=== PATIENT | female | born 1990 | race Caucasian/White ===

== ENCOUNTER → 2018-11-12 16:40 | Outpatient (CLI) | payer OTHER, SELFPAY ==
[2018-11-17 15:22] LABS: HPV Reflexed? NOT INDICATED
== END ==
PROVIDERS: Visit Provider Obstetrics & Gynecology
DX: Z12.4 Encounter for screening for malignant neoplasm of cervix (principal); Z97.5 Presence of (intrauterine) contraceptive device
CPT/HCPCS: 87624; 88175; G0145

== ENCOUNTER → 2019-02-21 10:04 | Outpatient (CLI) | payer OTHER, SELFPAY ==
--- NOTE | 2019-02-21 10:06 | RAD_ITS ---
STUDY: X-RAY - RIGHT KNEE REASON FOR EXAM: Female, 28 years old. Knee pain following a fall. TECHNIQUE: 4 view(s) of the knee. COMPARISON: None. FINDINGS: Normal visualized distal femur. Normal visualized proximal tibia and fibula. Normal proximal tibiofibular articulation. Normal medial femorotibial compartment. Normal lateral femorotibial compartment. Normal patellofemoral articulation. Small joint effusion. RAD/Knee 4 or More Views IMPRESSION: Small joint effusion. Electronically Signed: Wilber Alcantar, at 10:37 EST , Service support ,
== END ==
LOC: HPRAD 10:05
PROVIDERS: Referring Provider Physician Assistant; Visit Provider Physician Assistant
DX: S89.91XA Unspecified injury of right lower leg, initial encounter (principal); X58.XXXA Exposure to other specified factors, initial encounter; Y93.9 Activity, unspecified; Y92.9 Unspecified place or not applicable; Y99.9 Unspecified external cause status
CPT/HCPCS: 73564

== ENCOUNTER 2019-02-28 14:30 | Outpatient (CLI) | payer OTHER, SELFPAY ==
[2019-02-21 10:29] VITALS: BMI 30.4
[2019-02-28 15:05] VITALS: BMI 32.5
[2019-02-28] MEDS: 0.9% Saline Lock 10 ML Syringe IV (15:15)
[2019-02-28 17:25] LABS: Neisserai gonorrhoeae by PCR Negative (Negative); Probe Check PASS
[2019-02-28 17:33] LABS: Chlamydia Trachomatis by PCR POSITIVE (Negative)
--- NOTE | 2019-02-28 18:10 | OB.TRI.HP_ITS ---
- Problem List (1) Hyperemesis complicating , antepartum Status: Acute History of Present Illness Date of Service: 02/28/19 Was patient seen by the physician?: Yes Reason For Visit: FLUIDS Date of Service: 02/28/19 Final NAIF: 10/17/19 Final NAIF Source: LMP Gestational age: 7 Weeks and 0 Days History of Present Illness: Arrived in triage from MD office. Missed menses appointment today where reporting that vomiting has been persistent x 3 days. Allergies amoxicillin Allergy (Severe, Verified 02/28/19 15:12) Swelling - Pertinent Past Medical History Medical History: Past Medical History (Last Updated 02/21/19 @ 10:31 by Kelsie Ruby) Anemia Knee pain Laboratory Studies: Laboratory Tests 02/28/19 Range/Units 13:45 Chlam trachomat DNA PCR POSITIVE H (Negative) N.gonorrhoeae DNA (PCR) Negative (Negative) Review of Systems Constitutional: Reports: Anorexia, Fatigue - r/t hyperemesis. Denies: Chills, Fever, Weight Change HEENT: Denies: Head Aches, Sinus Congestion, Sinus Drainage Cardiovascular: Denies: Chest Pain, Palpitations Respiratory: Denies: Cough, Shortness of breath at rest, Sputum production Gastrointestinal: Reports: Nausea, Vomiting. Denies: Abdominal Pain Genitourinary: Denies: Dysuria Musculoskeletal: Denies: Joint Pain, Joint Tenderness Skin: Denies: Rash, Wounds Neurological: Denies: Numbness, Tingling, Focal weakness Psychiatric: Denies: Anxiety, Depression, Homicidal Ideations, Suicidal Ideations Hematologic/ Lymphatic: Denies: Easy Bruising, Easy Bleeding Physical Exam General: Alert, Oriented x3, No apparent distress HEENT: Atraumatic, Normocephalic. Negative for: Thyromegaly, Lymphadenopathy Cardiovascular: Regular rate, Regular Rhythm Lungs: Clear to auscultation Abdomen: Bowel Sounds Present, Gravid Neurological: Deep Tendon Reflexes 2+/4 and Symmetrical, Neuro grossly intact PROCUREMENT SPECIALIST: Normal external genitalia. Negative for: Vulvar lesions Impression/Plan Hyperemesis Gravidarum affecting 1st trimester of . at 7w0d. IV fluids with Phenergan given. One liter and feeling much better. Reports being able to tolerate water now. Wishes to not have second liter of fluids. Lab calls with + Chlamydia screen. Patient educated on results and Azithromycin called in for patient and partner Fausto Patel [birth year]. Phenergan already ordered from MD today in office. Will take antinausea medication one half hour prior to antibiotics and abstain from intercourse x 1 week. JAH to be done in MD office in 3-4 weeks.
== END 2019-02-28 18:20 | disposition home or self-care (01) ==
LOC: WPOUT 15:02 → LABSPEC 15:02 → WPOUT 15:02 → WP 15:03
PROVIDERS: Obstetrics & Gynecology; Referring Provider Obstetrics & Gynecology; Visit Provider Obstetrics & Gynecology
DX: O21.0 Mild hyperemesis gravidarum (principal); Z3A.01 Less than 8 weeks gestation of pregnancy
CPT/HCPCS: 87491; 87591; 99218; A4216; G0378

== ENCOUNTER → 2019-03-07 15:26 | Outpatient (CLI) | payer OTHER, SELFPAY ==
[2019-03-07 13:05] VITALS: BMI 32.5
[2019-03-07 16:36] LABS: Thyroid Stim Hormone (TSH) 0.98 uIU/mL (0.358-3.74)
[2019-03-07 16:48] LABS: Absolute Lymphocyte Count 1.87 X10^3/uL (0.83-4.51); Absolute Neutrophil Count 6.7 X10^3/uL (2.0-7.7); Basophil# 0.03 X10^3/uL; Basophil% 0.3 % (0-1); Eosinophil# 0.16 X10^3/uL; Eosinophils% 1.7 % (0-5); Hematocrit 36.8 % (37-47); Hemoglobin 12.5 g/dL (12.0-15.0); Lymphocyte # 1.87 X10^3/ul (4.0); Mean Corpuscular Hgb 29.9 pg (27.0-32.0); Mean Platelet Vol. 11.3 fl (6.2-12.0); Monocyte# 0.62 X10^3/uL; Monocyte% 6.6 % (0-10); NRBC Flagged by Analyzer 0 % (0-5); Neutrophil # 6.67 X10^3/uL (2.7-7.7); Neutrophil % 71.2 % (47-70); Platelet Count 237 K/mm3 (150-450); RBC Distribution Width CV 12.4 % (11.6-14.6); RBC Distribution Width SD 39.6 fl (35.1-43.9); Red Blood Count 4.18 M/mm3 (4.2-5.4); White Blood Count 9.4 K/mm3 (4.4-11.0)
[2019-03-07 16:51] LABS: Color, Urine Yellow (Yellow); Glucose, Dipstick Normal (Normal); Ketone-Dipstick 50 mg/dl (Negative); Leukocyte Esterase-Dipstick 100 /ul (Negative); Nitrite-Dipstick Negative (Negative); Occult Blood-Urine Negative /ul (Negative); Protein-Dipstick 15 mg/dl (Negative); Urine Bilirubin Dipstick Negative (Negative); Urine Clarity Clear (Clear); Urine Urobilinogen Normal (Normal)
[2019-03-08 09:36] LABS: HIV - WCH Non-Reactive (Nonreactive); Hepatitis B Surface Antigen Non-Reactive (Nonreactive); Hepatitis C Antibody Non-Reactive (Nonreactive); Rubella IgG 109.8 IU/mL
[2019-03-10 03:11] LABS: Prenatal RPR NONREACTIVE (NONREACTIVE)
== END ==
LOC: WOBLAB 15:26
PROVIDERS: Visit Provider Obstetrics & Gynecology
DX: Z34.81 Encounter for supervision of other normal pregnancy, first trimester (principal)
CPT/HCPCS: 36415; 81002; 84443; 85025; 86703; 86762; 86803; 87340

== ENCOUNTER → 2019-07-28 | Outpatient (CLI) | payer OTHER, SELFPAY ==
[2019-03-07 13:05] VITALS: BMI 32.5
[2019-07-28 16:09] LABS: Hemoglobin 10.9 g/dL (12.0-15.0); Mean Corpuscular Hgb 30.3 pg (27.0-32.0); Mean Corpuscular Volume 91.7 fL (81-99); Mean Platelet Vol. 12.2 fl (6.2-12.0); Platelet Count 204 K/mm3 (150-450); RBC Distribution Width CV 13.3 % (11.6-14.6); RBC Distribution Width SD 43.1 fl (35.1-43.9); White Blood Count 10.8 K/mm3 (4.4-11.0)
[2019-07-28 16:20] LABS: Glucose Challenge Gest 1H 50g 105 mg/dL (70-140)
== END | disposition home or self-care (01) ==
LOC: LABSPEC 15:52
PROVIDERS: Referring Provider Obstetrics & Gynecology; Visit Provider Obstetrics & Gynecology
DX: Z34.83 Encounter for supervision of other normal pregnancy, third trimester (principal)
CPT/HCPCS: 82950; 85027

== ENCOUNTER 2019-08-18 13:45 | Outpatient (CLI) | payer OTHER, SELFPAY ==
[2019-03-07 13:05] VITALS: BMI 32.5
[2019-08-18 14:20] VITALS: BMI 38.5
[2019-08-18] MEDS: Betamethasone/Betamethasone 30 MG/5 ML Vial 12 MG IM (14:54)
[2019-08-18] MEDS: Lactated Ringers 1,000 ML 50 ML IV (15:05)
[2019-08-18 15:08] LABS: Prothrombin Time (Protime)PT. 12.2 SECONDS (11.7-14.9)
[2019-08-18 15:09] LABS: Partial Thromboplast Time 28.7 Seconds (24.1-36.2)
[2019-08-18 15:11] LABS: Protein, Urine (Random) 112.6 mg/dL (<11.9); Protein:Creat Ratio 590 mg/g CRE (0-200)
[2019-08-18 15:15] LABS: Hematocrit 34.1 % (37-47); Hemoglobin 11.3 g/dL (12.0-15.0); Mean Corp Hgb Conc 33.1 g/dL (32-36); Mean Corpuscular Hgb 29.7 pg (27.0-32.0); Mean Corpuscular Volume 89.7 fL (81-99); Mean Platelet Vol. 11.9 fl (6.2-12.0); Platelet Count 198 K/mm3 (150-450); RBC Distribution Width SD 45.4 fl (35.1-43.9); White Blood Count 13.7 K/mm3 (4.4-11.0)
[2019-08-18] MEDS: Labetalol 100 MG/20 ML Vial 40 MG IV (15:24)
[2019-08-18 15:29] LABS: AST(SGOT) 17 U/L (15-37); Alanine Aminotransfer ALT/SGPT 21 U/L (13-56); Creatinine, Serum 0.57 mg/dL (0.55-1.02); EST Glomerular Filtration Rate 135 mL/min (>60); Est Glom Filt Rate - Afr Amer 163 mL/min (>60); Estimated Creatinine Clearance 122.64 ml/min; Uric Acid 5.5 mg/dL (2.6-6.0)
[2019-08-18] MEDS: Magnesium Sulfate 4gm/100mL 4 GM/100 ML IV.SOLN. IV (15:42)
[2019-08-18] MEDS: Magnesium Sulfate 4gm/100mL 2 GM/50 ML IV.SOLN. IV (15:43)
--- NOTE | 2019-08-18 15:53 | HP.PCM_ITS ---
History and Physical Date of Admission: 08/18/19 ACOG ANTEPARTUM RECORD - HISTORY AND PHYSICAL (08/18/2019) and TRANSPORT NOTE Name: NAV PATEL History of This : This is a 29-year-old patient 3 para 1 AB 1 who presented to the office today for routine visit and was noted to have markedly elevated blood pressures. She denies any other PIH symptoms such as headache, blurred vision, epigastric tenderness. She was sent to labor and delivery for a pre-E work-up and blood pressure monitoring and blood pressures continue to be elevated. labs were essentially normal except for urine protein which was elevated. She was started on Celestone, or hypertensive protocol, and magnesium sulfate in preparation for transport given she is only 31 weeks and 3 days gestation. OB Physician: AMANUEL 's Physician: UNDECIDED ...................................................................... : 1990 Age: 29 Address: [address] [place] [address] Phone: H) [phone] Insurance Carrier: [employer] [id number] Emergency Contact: MOHIT PATEL [phone] ...................................................................... Final NAIF: 10/17/19 By Ultrasound: PARITY: (G-Total Pregnancies P-Fullterm,Premature,Induced AB,Spont AB, Ectopics, Multiple,Living) NAIF CONFIRMATION: By LMP: 01/10/19 Final NAIF: 10/17/19 OB PROBLEM LIST: His first baby. Office Childbirth Class suggested. Z: LEO w/SEHLTON or for PNV or Delivery ALLERGIES: Amoxicillin Airway constriction MEDICATIONS: Anusol-HC 25 mg rectal suppository One per rectum bid x 2 weeks prn azithromycin 500 mg tablet take two tablets x one dose + DHA 28 mg iron-800 mcg-200 mg combo pack daily promethazine 12.5 mg tablet 1 po q 3 hours orn nausea Zofran 4 mg tablet One tab by mouth every six hours prn nausea/vomiting SOCIAL HISTORY: Smoking - Never Alcohol Use - socially not while Diet - balanced Diet, caffeine < 2 drinks per day and Used to drink 8 cups of coffee daily. Now occ only. 6 bottles of water daily. 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 Illicit Drug Use - denies use of street drugs Sexual Activity - did not discuss sexual history Place of - [place] Hours Worked - 30-35 Spouse-Sig Other Name - Mohit Patel Spouse-Sig Other Occupation - [employer] Spouse-Sig Other Phone No - [phone] Children Name(s) - Mitali(13) PRIOR DELIVERY HISTORY DEL DATE GEST LAB WT LB WT OZ TYPE ANES LABOR TX 14 Apr 13 39 1 7 6 Vag Epidural No 29 Jun 12 14 0 0 0 Sab General No ANTEPARTUM FLOW CHART VISIT GE RTC FU F F RI U U DATE WK MD WKS HT PN HR M SS BP ED WT RI GL D EF ST __ ____ ___ __ __ ___ __ __ __ ___ __ __ __ ___ __ 30 Jul JMW 1 31 + + 160/120 1+ 217 1+ - 09 Aug 15 JMW 3 28 + + 134/82 sl 210 - - 11 Jul 11 JMW 4 24 + + 138/82 sl 201 tr - Jun 09 JMW 4 20 + + 142/82 0 194 tr - May 06 JMW 3 17 + + 126/72 0 189 tr - Mar 31 JMW 4 12 + O 120/80 0 186 - - 18 Feb 25 JMW 4 on US 142/84 0 173 tr - ANTEPARTUM NOTE(S): Aug 18 2019: 1+Pitting Edema,Elevated BP,Denies H/A or Burry Vision Jul 28 2019: see note Jun 28 2020: Glucola/Instructions Given, Good FM, Sono Today May 30 2020: Sono Today,Good FM,Feeling Well May 12 2019: Declines AFP,CF,Quickening Noted Apr 06 2019: feeling well. Mar 07 2019: Nausea Continues,Sono PNV and NOB Today COMPREHENSIVE ANTEPARTUM NOTE(S): Aug 18 2019: Nav presents here today at 31 wks 3 days and reports Good FM today, Noted 1+ Pitting Edema, 1+ Protein and BP of 160/120 lg cuff sitting. Denies Headache or burry vision or other concerns at this time. BP on (L) side after 10 minutes - 138/104. JHONY Jul 28 2019: Nav is here for visit, GCT. She is doing well with no complaints reported. Reviewed FM, PTL, and recommendations for Tdap. Encouraged to follow Covid-19 precautions. GCT, CBC drawn today in office. LMT Mar 07 2019: Script for Zofran 4 mg (20) one po every 6 hrs prn n/v RFx1 sent to [facility] JHONY Mar 07 2019: Feeling generally well, however, frequent vomiting; denies cramping, VB, LOF; NOB and Lab work today; discussed diet management of nausea/vomiting, rx for zofran given; warning signs, s/s PTL; RTO 4 weeks for PNV - KVW Mar 07 2019: Sheeba is here w ANTHONY, Mohit Patel for NOB nurse visit with NAIF 10-17-19 planning a vag del at [facility], uncertain of epidural, in process of changing ped care so not sure now and plans to breastfeed. Sheeba is a G 3 P 1 with 6 year old daughter. This is Mohit's first baby. Mary had a one hour labor with minimal pushing in 2012. 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 They are pleased about the . She is allergic to Amoxicillin but has NKA to latex, food or the environment. Her diet is balanced although currently she's had NVP w 10# weight loss. She has tried promethazine and today will start Zofran. She left the NOB visit once to vomit. States she can keep down some bottled sweet tea. Usually she tries to drink 5 or 6 bottles of water. Enc to do sips of fluid and small amts of food that sounds good. She is a lifetime non smoker, denies street drug use and drinks alcohol socially but not in pg. She is active with her job. Genetics Screening form completed noting an aunt with Downs. They decline AFP and CF tests. Warning signs in pg reviewed as well as wearing her seatbelt ALWAYS and low on her abdomen, reaching the office after hours, lifting restriction of 25#. OTC meds ok to take and the importance of protein in her diet with understanding voiced. States she is not allowed to lift as she has a torn meniscus in her right knee. US done today. Routine labs drawn. They have a cat but Mohit cares for the litter. They have a copy of What to Expect. Office Childbirth Class suggested as Mohit's first baby. Enc to call w luz concer. Ravi ANGULO. Feb 28 2019: Nav is being seen for missed menses. . UPT in office is positive. LMP 9-23-19. Pt is about 7 weeks. NAIF 10-17-19. Pt has alot of morning sickness and is vomiting everyday. She has not tried anything otc. Breasts are tender as well. FOB Mohit Patel and is his first child. Pap done 10/2018 WNL. Cultures due today. Medications and allergies are up to date. information gone over. AM Feb 28 2019: ok Nov 12 2018: Nav presents here today for removal of her Mirena IUD as they are ready to attempt . 28 y.o. G 2 P 1 non-smoker with no menses with use of IUD for control. Reports she had inserted in 2014 and denies problems or concerns at this time. Medication and Allergy list up-dated. Reports last pap screening done [place] [address] Giron in [place] and always had normal results. Set-up for same today. JHONY Nov 12 2019: ok REVIEW OF SYSTEMS: GENERAL - Denies fever, or chills SKIN - Denies rash, new skin lesions, or change in moles EYES - Denies blurred vision, or change in visual acuity EARS - Denies ear pain, or difficulty hearing NOSE - Denies nasal congestion, discharge, or bleeding MOUTH - Denies sore throat, or difficulty swallowing NECK - Denies pain or swelling RESPIRATORY - Denies shortness of breath, cough, wheezing CARDIOVASCULAR - Denies palpitations, chest pain, orthopnea, PND, peripheral edema, syncope or claudication GASTROINTESTINAL - Denies nausea, vomiting, diarrhea, constipation, Denies abdominal pain, melena and or bright red blood GENITOURINARY - Denies dysuria, frequency of urination, urgency, or hesitancy MUSCULOSKELETAL - Denies joint or muscle pain, or back pain NEUROLOGICAL - Denies localized numbness, weakness, or tingling PSYCHIATRIC - Denies depression, anxiety, substance abuse or suicide attempts ENDOCRINE - Denies heat or cold intolerance, weight loss or gain, increasing thirst HEMATO-IMMUNOLOGIC - Denies easy bruising, bleeding, oral ulcerations or recurrent infections GENETICS SCREENING: Age 35+ years: No Thalassemia: No Neural Tube Defect: No Down Syndrome: Yes Aunt FARHAD-SACHS: No Sickle Cell Disease: No Hemophilia: No Musc. Dystrophy: No Cystic Fibrosis: No-declines screening Oliver Chorea: No Mental Retardation: No Fragile X: No Other genetic: No Other defects: No SABs/still births: No Drugs since LMP: Yes INFECTION HISTORY: High risk AIDS: No High risk Hepatitis: No Exposed to TB: No Exposed to Herpes: No Rash/viral illness since LMP: No History of STD: Chlamydia MENSTRUAL HISTORY: *Menses Amount/Duration: 3 daysMenses Regularity: RegularFrequency: monthly* PAST SUMMARY: PARITY: 1. Total Pregnancies............ 3 2. Full Term Pregnancies........ 1 3. Premature.................... 0 4. Abortions - Induced.......... 0 5. Abortions - Spontaneous...... 1 6. Ectopics..................... 0 7. Multiple Births.............. 0 8. Living Children.............. 1 PAST #1: Date of :.................. 07/17/11 Gestation Weeks:................ 14 Length of labor(hours):......... 0 Sex:............................ UNKNOWN Weight-lbs:............... 0 Weight-oz:................ 0 Type of Delivery:............... Sab Type of Anesthesia:............. General Place of Delivery:.............. [place] Treatment of Labor?:.... No Comment: PAST #2: Date of :.................. 08/01/12 Gestation Weeks:................ 39 Length of labor(hours):......... 1 Sex:............................ F Weight-lbs:............... 7 Weight-oz:................ 6 Type of Delivery:............... Vag Type of Anesthesia:............. Epidural Place of Delivery:.............. [place] Treatment of Labor?:.... No Comment: NO PHYSICAL EXAMINATION General Appearence: 29 yo female in no acute distress Vital Signs: AF, VSS Heart: RRR without rubs or gallops Lungs: CTA x 2 Breasts: deferred Abdomen: gravid Fetus: Size: AGA Movement: present Heart: present Labs for : NAV WEMIRIAM since 01/20/2019 ORDER DATEIN DESCRIPTION VALUE UNITS RANGE A+ COMMENT ALANINE AMINOTRANSFERAS (SGPT) 08/18/19 NOTE Original Ordering Provider: SHELTON Calixto ALT 21 U/L 13-56 AST(SGOT) 08/18/19 NOTE Original Ordering Provider: SHELTON Calixto AST 17 U/L 15-37 URIC ACID 08/18/19 NOTE Original Ordering Provider: SHELTON Calixto URIC 5.5 mg/dL 2.6-6.0 The drugs N-Acetylcysteine and Metamizole may falsely depress this assay. SERUM CREATININE AND GFR 08/18/19 NOTE Original Ordering Provider: SHELTON Calixto CREAT,SERUM 0.57 mg/dL 0.55-1.02 The validity of the calculated GFR AND GFRAA in patients over 70 years has not been determined. Clinical correlation is essential. EST GFR 135 mL/min >60 Non- GFR Calc EST GFR - AA 163 mL/min >60 GFR Calc ESTIMATED CRCL 122.64 ml/min w CBC-COMPLETE BLOOD CNT NO DIFF 08/18/19 NOTE Original Ordering Provider: SHELTON Calixto WBC 13.7 K/mm3 4.4-11.0 H RBC 3.80 M/mm3 4.2-5.4 L HGB 11.3 g/dL 12.0-15.0 L HCT 34.1 % 37-47 L MCVw 89.7 fL 81-99 MCH 29.7 pg 27.0-32.0 MCHC 33.1 g/dL 32-36 RDW CV 14.0 % 11.6-14.6 RDW SD 45.4 fl 35.1-43.9r H PLT 198 K/mm3 150-450 MPV 11.9 fl 6.2-12.0 PROTEIN+CREATININE RATIO,URINE 08/18/19 NOTEw Original Ordering Provider: SHELTON Calixto UR CREAT 191.00 mg/dL NO RANGE EST. PROTEIN,UR.RAN. 112.6 mg/dL <11.9 H PROT:CRE RATIO 590 mg/g CRE 0-200 H PARTIAL THROMBOPLAST TIME 08/18/19 NOTE Original Ordering Provider: SHELTON Calixto PTT 28.7 Seconds 24.1-36.2 PROTHROMBIN TIME W/INR 08/18/19 NOTE Original Ordering Provider: SHELTON Calixto PROTIME 12.2 SECONDS 11.7-14.9 INR 1.0 GLUCOSE CHALLENGE GEST 1H 50G 07/28/19 NOTE Original Ordering Provider: Emani Patel GLU GEST 50G 1H 105 mg/dL 70-140 Reviewed by KERRIE CBC-COMPLETE BLOOD CNT NO DIFF 07/28/19 NOTE Original Ordering Provider: Emani Patel WBC 10.8 K/mm3 4.4-11.0 RBC 3.60 M/mm3 4.2-5.4 L HGB 10.9 g/dL 12.0-15.0 L HCT 33.0 % 37-47 L MCV 91.7 fL 81-99 MCH 30.3 pg 27.0-32.0 MCHC 33.0 g/dL 32-36 RDW CV 13.3 % 11.6-14.6 RDW SD 43.1 fl 35.1-43.9 PLT 204 K/mm3 150-450w MPV 12.2 fl 6.2-12.0 H Reviewed by EMANI RPR 03/07/19 NOTE Original Ordering Provider: Emani Patel RPR NONREACTIVE NONREACTIVE Reviewed by ZBIGNIEW HEPATITIS C ANTIBODY 03/07/19 NOTE Original Ordering Provider: Emani Patel HEPATITIS C AB Non-Reactive Nonreactive Non Reactive: < 0.8 Equivocal: >/= 0.8 to < 1.0 Reactive: >/= 1.0 The CDC recommends that a reactive/equivocal HCV antibody result be followed up by the HCV Nucleic Acid Amplification test ([id number]) Reviewed by EMANI HEPATITIS B SURFACE ANTIGEN 03/07/19 NOTE Original Ordering Provider: Emani Patel HEPB SURFACE AG Non-Reactive Nonreactive Reviewed by EMANI HIV - H 03/07/19 NOTE Original Ordering Provider: Emani Patel HIV - [facility] Non-Reactive Nonreactive w Reviewed by EMANI RUBELLA IGG 03/07/19 NOTE Original Ordering Provider: Emani Patel RUBELLA IGG 109.8 IU/mL Antibody results Interpretation of Immune Status < 5 IU/ml Presumed Non-immune 5 - < 10 IU/ml Equivocal > or = 10 IU/ml Presumed Immune Reviewed by EMANI T AND S-NO CHARGE W/PNP 03/07/19 Reason for Type AND Screen/Red Cells: Surgery? N [facility]~[address] [place], [address]~ BLOOD TYPE GEL A POSITIVE N AB SCREEN GEL NEGATIVE N Reviewed by EMANI URINALYSIS, ROUTINE (DIPSTICK) 11/18/19 NOTE Original Ordering Provider: Emani Patel COLOR Yellow Yellow CLARITY Clear Clear GLUCOSE, UR Normal mg/dl Normal BILIRUBIN URINE Negative mg/dL Negative r KETONE UR 50 mg/dl Negative H SP.GR. DIPSTX 1.020 1.002-1.030 PH UR 6.0 5.0 - 8.0 PROT DIPSTX 15 mg/dl Negative H UROBILI Normal mg/dl Normal NITRITE UR Negative Negative OCCULT BLOOD-UR Negative /ul Negative LEUK ESTERASE 100 /ul Negative H Reviewed by EMANI CBC W/DIFF, AUTOMATED 03/07/19 NOTE Original Ordering Provider: Emani Patel WBC 9.4 K/mm3 4.4-11.0 RBC 4.18 M/mm3 4.2-5.4 L HGB 12.5 g/dL 12.0-15.0 HCT 36.8 % 37-47 L MCV 88.0 fL 81-99 MCH 29.9 pg 27.0-32.0 MCHC 34.0 g/dL 32-36 RDW CV 12.4 % 11.6-14.6 RDW SD 39.6 fl 35.1-43.9 PLT 237 K/mm3 150-450 MPV 11.3 fl 6.2-12.0 NEUT% 71.2 % 47-70 H LY% 20.0 % 19-41 MONO% 6.6 % 0-10 EO% 1.7 % 0-5 BASO% 0.3 % 0-1 IM GRAN % 0.200 % 0.0-0.9 IG% - Immature Granulocytes (promyelocytes, myelocytes and metamyelocytes) > 1% indicates that a LEFT SHIFT is Present. ABSOLUTE NEUT 6.7 X10 3/uL 2.0-7.7 ABSOLUTE LYMPH 1.87 X10 3/uL 0.83-4.51 NRBC, FLAGGED 0 % 0-5 Reviewed by EMANI THYROID STIM HORMONE (TSH) 03/07/19 NOTE Original Ordering Provider: Emani Jorge TSH 0.98 uIU/mL 0.358-3.74 Reviewed by EMANI Impression /Plan: 31-week 3-day intrauterine with severe - induced hypertension. I have discussed with Dr. Damico and she accepts the patient in transport to [facility]. Essential Procedure Criteria Procedure Essential: Yes Criteria Note: On 07/05/2019 the [facility] ([facility]) Public Order signed by [facility] Director Abby Zamora M.D., regarding the Management of Non- Essential Surgeries and Procedures for the purpose of preserving Personal Protective Equipment (PPE) and critical hospital capacity and resources within [place] went into effect as of 07/06/2019 at 5:00PM. According to the [facility] Public O rder: This action will remain in full force and effect until the State of Emergency declared by the Governor no longer exists or the Director of the [facility] rescinds or modifies this Order.. This [facility] order stated all non-essential or elective surgeries and procedures that utilize PPE should be delayed unless there is undue risk to the current or future health of a patient. After reviewing the aforementioned [facility] Public Order and the patients clinical case, I have determined that the scheduled procedure meets the criteria to go forward. Risk to Patient if Procedure Delayed: Risk of rapidly worsening to severe symptoms if delayed
[2019-08-18] MEDS: Magnesium Sulfate 20 GM/500 ML BAG IV (16:15)
== END 2019-08-18 16:45 | disposition short-term general hospital (02) ==
LOC: OBT 14:22 → WPOUT 14:22
PROVIDERS: Obstetrics & Gynecology; Referring Provider Obstetrics & Gynecology; Visit Provider Obstetrics & Gynecology
DX: O13.3 Gestational [pregnancy-induced] hypertension without significant proteinuria, third trimester (principal); Z3A.31 31 weeks gestation of pregnancy
CPT/HCPCS: 36415; 59025; 59050; 82565; 82570; 84156; 84450; 84460; 84550; 85027; 85610; 85730; 94760; 96372; 99218; J7120; G0378; J0702

== ENCOUNTER 2021-05-31 11:50 | Outpatient (CLI) | payer MEDICAID, SELFPAY ==
[2021-05-31 12:42] LABS: hCG Titer Quant., Serum 766 mIU/mL (1-3)
== END 2021-05-31 23:59 | disposition home or self-care (01) ==
LOC: WOBLAB 11:52
PROVIDERS: Visit Provider Obstetrics & Gynecology
DX: N91.2 Amenorrhea, unspecified (principal)
CPT/HCPCS: 36415; 84702

== ENCOUNTER 2021-06-10 10:33 | Emergency (ER) | payer MEDICAID, SELFPAY ==
[2021-06-10 10:34] VITALS: BP 134/97; PULSE 88; RESP 17; TEMP 37; O2SAT 100; BMI 32.0
--- NOTE | 2021-06-10 10:51 | US_ITS ---
HISTORY: pain. LMP: Unknown. Beta-hC on 05/31/2021. TECHNIQUE: Transvaginal pelvic ultrasound was performed. # of images incl. paperwork: 117. COMPARISON: None. FINDINGS: UTERUS: 7.8 x 4.7 x 7 cm. RIGHT OVARY: 4.4 x 2.7 x 2.1 cm with vascular flow demonstrated. No adnexal masses. LEFT OVARY: 3.4 x 2.2 x 1.9 cm with vascular flow demonstrated. 1.7 x 2.3 cm complex cyst. FREE FLUID: Minimal. INTRAUTERINE GESTATIONAL SAC: Single. Mean sac diameter 11 mm corresponding to 5 weeks 6 days. YOLK SAC: Present. POLE: CRL 3.7 mm. ESTIMATED GESTATIONAL AGE: 6 weeks 1 day. ESTIMATED DELIVERY DATE: 02/03/2022. HEART MOTION: 114 bpm. SUBCHORIONIC HEMORRHAGE: None demonstrated. US/Transvaginal w/Preg US IMPRESSION: Single living intrauterine gestation with an estimated gestational age of 6 weeks 1 day. 2.3 c m left ovarian corpus luteal cyst. at 1208 Reported and signed by: Luci Vega MD Electronically Signed: Luci Vega MD at 12:07 EST ,
--- NOTE | 2021-06-10 10:53 | EDS_ITS ---
HPI HPI - Female History of Present Illness Chief Complaint: Vag Bld, Preg Informant: patient Pain Pain: Positive for Pelvic Pain Onset: Days Context: Gradual Onset Timing: Waxes and wanes Quality: Positive for Aching and Sharp Location: RLQ Current Severity: Moderate Maximum Severity: Severe Bleeding Issue: Positive for - (Passing blood with urine first 2 days. Yesterday would have small clots when wiping. Unsure if urinary or vaginal.) Associated Symptoms P: 2 Ab: 1 Narrative Narrative: Patient presents for evaluation of vaginal bleeding and cramping. She reports a 3-day history of pelvic pain worse in the right lower quadrant. She states she initially noted some blood when she would urinate. Yesterday she would have blood with wiping and small clots. She believes she is approximately 6 weeks . She has not yet seen her ELECTRICAL PROSPECTING ENGINEER for her initial evaluation. Blood type is A-positive. [facility] Medical History Anemia Knee pain Home Medications prenat.vits,daniel,[id number] 1 tab PO DAILY 02/21/19 [History Last Taken 08/18/19 09:00 1 tab] sertraline [Zoloft] 50 mg PO DAILY 06/10/21 [History Last Taken Unknown] Allergy/AdvReac Type Severity Reaction Status Date / Time amoxicillin Allergy Severe Swelling Verified 06/10/21 10:33 Social History Smoking Status: Never smoker alcohol intake: never ROS ROS ED Constitutional Constitutional ED: Reports chills; Denies fever(s) Eyes Eyes: Denies change in vision ENT ENT ED: Denies sore throat Cardiovascular Cardiovascular: Denies chest pain Respiratory/Chest Respiratory/Chest: Denies cough or dyspnea Gastrointestinal Gastrointestinal: Reports abdominal pain; Denies diarrhea, nausea or vomiting Genitourinary Genitourinary ED: Reports hematuria; Denies dysuria Musculoskeletal Musculoskeletal: Denies back pain Integumentary Denies rash Neurologic Neurologic: Denies headache(s) Allergic/Immunologic Allergic/Immunologic ED: Denies urticaria EXAM Physical Exam Const Vital Signs: 06/10/21 10:34 Temperature 98.6 F Temperature Source Temporal Pulse Rate 88 Respiratory Rate 17 Blood Pressure 134/97 H Blood Pressure Mean 109 Pulse Ox 100 Oxygen Delivery Method Room Air Positive well nourished and well developed General Appearance ED: well developed HEENT Reports moist mucous membranes Eyes PERRL and EOMs intact bilaterally Neck supple Chest Wall inspection of chest normal and palpation of chest normal Resp normal respiratory effort and clear to auscultation bilaterally Cardio regular rate and regular rhythm GI soft to palpation Palpation: tender LLQ, RLQ and RUQ no CVA tenderness Narrative: External exam reveals no blood in the vaginal vault. Extremity normal to inspection Neuro oriented x3 Sensorium / Orientation: alert Psych mental status grossly normal Skin no rashes or lesions noted MDM MDM MDM Narrative Medical decision making narrative: Patient declined anything for pain here. Lab work, urinalysis, pelvic ultrasound obtained. Lab Data Attestation: I reviewed the patient's lab results. Labs: Laboratory Results - last 24 hr 06/10/21 06/10/21 06/10/21 11:01 11:01 11:01 WBC 9.4 RBC 4.63 Hgb 13.8 Hct 40.2 MCV 86.8 MCH 29.8 MCHC 34.3 RDW Std Deviation 40.1 RDW Coeff of Dk 12.6 Plt Count 257 MPV 10.5 Immature Gran % (Auto) 0.700 Neut % (Auto) 75.8 H Lymph % (Auto) 12.1 L [place] % (Auto) 10.9 H Eos % (Auto) 0.2 Baso % (Auto) 0.3 Absolute Neuts (auto) 7.1 Absolute Lymphs (auto) 1.13 Nucleated RBC % 0 Sodium 135 L Potassium 3.4 L Chloride 104 Carbon Dioxide 25.0 Anion Gap 6 BUN 6 L Creatinine 0.71 Estim Creat Clear Calc 93.30 Est GFR (MDRD) Af Amer 125 Est GFR (MDRD) Non-Af 103 BUN/Creatinine Ratio 8.4 L Glucose 95 Calcium 9.8 Total Bilirubin 0.70 Direct Bilirubin 0.28 AST 27 ALT 33 Alkaline Phosphatase 99 Total Protein 7.8 Albumin 3.5 Globulin 4.3 H HCG, Quant 36115 H Urine Color Urine Clarity Urine pH Ur Specific [place] Urine Protein Urine Glucose (UA) Urine Ketones Urine Occult Blood Urine Nitrite Urine Bilirubin Urine Urobilinogen Ur Leukocyte Esterase Urine RBC Urine WBC Ur Squamous Epith Cells Urine Bacteria Urine Mucus 06/10/21 11:01 WBC RBC Hgb Hct MCV MCH MCHC RDW Std Deviation RDW Coeff of Dk Plt Count MPV Immature Gran % (Auto) Neut % (Auto) Lymph % (Auto) [place] % (Auto) Eos % (Auto) Baso % (Auto) Absolute Neuts (auto) Absolute Lymphs (auto) Nucleated RBC % Sodium Potassium Chloride Carbon Dioxide Anion Gap BUN Creatinine Estim Creat Clear Calc Est GFR (MDRD) Af Amer Est GFR (MDRD) Non-Af BUN/Creatinine Ratio Glucose Calcium Total Bilirubin Direct Bilirubin AST ALT Alkaline Phosphatase Total Protein Albumin Globulin HCG, Quant Urine Color Staci Urine Clarity Sl. Cloudy Urine pH 6.0 Ur Specific [place] 1.020 Urine Protein 30 H Urine Glucose (UA) Normal Urine Ketones 5 H Urine Occult Blood 150 H Urine Nitrite Negative Urine Bilirubin 1 H Urine Urobilinogen 1 H Ur Leukocyte Esterase 25 H Urine RBC 0 SEEN Urine WBC 5-10 SEEN Ur Squamous Epith Cells 0-5 SEEN Urine Bacteria 0 SEEN Urine Mucus 0 SEEN Radiography Diagnostic Testing: Clinical Impression(s) from Imaging Studies Obstetrics Ultrasound 06/10/21 10:51 IMPRESSION: Single living intrauterine gestation with an estimated gestational age of 6 weeks 1 day. 2.3 c m left ovarian corpus luteal cyst. at 1208 Reported and signed by: Luci Vega MD Electronically Signed: Luci Vega MD at 12:07 EST Reading Location ID and State: [address] [place] [address] Tel , Service support , Treatment and Re-Evaluation Comments:: Test results discussed with patient and at bedside. Lab work unremarkable. Quant has elevated appropriately. Urinalysis does show 150 occult blood. No bacteria. Ultrasound reveals single live intrauterine gestation at 6 weeks 1 day. There is a left ovarian corpus luteal cyst. I did discuss with her that she may have a kidney stone causing her right lower quadrant pain especially noting that there is some blood in her urine. Ever ything with the looks okay at this time. Dr. Vegas, patient's OB was updated. Discharge Plan Triage Chief Complaint: Vag Bld, Preg ED Provider: Jamaica Canales Dx/Rx/DC Orders Clinical Impression: Pelvic pain, Hematuria, First trimester Instructions: First Trimester, ED Hematuria, ED Pain, Acute, Uncertain Cause Prescriptions: No Action prenat.vits,daniel,[id number] Tablet 1 tab PO DAILY RF: 0 sertraline [Zoloft] 50 mg Tablet 50 mg PO DAILY RF: 0 Primary Care Provider: Nabila Steward NP Referrals: Rosalie Vegas DO [STAFF PHYSICIAN] - Keep Fara appointment Naibla Steward NP, STOCK COUNTER-C [Primary Care Provider] - Disposition Disposition: Home, Self Care
[2021-06-10 11:15] LABS: Bacteria 0 SEEN /hpf (None Seen); Mucous, Urine 0 SEEN /hpf (<or=2+); Red Blood Cells-Urine 0 SEEN /hpf (0-5)
[2021-06-10 11:20] LABS: Color, Urine Amber (Yellow); Glucose, Dipstick Normal (Normal); Ketone-Dipstick 5 mg/dl (Negative); Leukocyte Esterase-Dipstick 25 /ul (Negative); Nitrite-Dipstick Negative (Negative); Occult Blood-Urine 150 /ul (Negative); Protein-Dipstick 30 mg/dl (Negative); Urine Clarity Sl. Cloudy (Clear); Urine Urobilinogen 1 mg/dl (Normal)
[2021-06-10 11:22] LABS: Urine Bilirubin Dipstick 1 mg/dL (Negative)
[2021-06-10 11:26] LABS: Absolute Lymphocyte Count 1.13 X10^3/uL (0.83-4.51); Absolute Neutrophil Count 7.1 X10^3/uL (2.0-7.7); Basophil# 0.03 X10^3/uL; Basophil% 0.3 % (0-1); Eosinophil# 0.02 X10^3/uL; Eosinophils% 0.2 % (0-5); Hematocrit 40.2 % (37-47); Hemoglobin 13.8 g/dL (12.0-15.0); Lymphocyte # 1.13 X10^3/ul (0.83-4.51); Lymphocyte % 12.1 % (19-41); Mean Corp Hgb Conc 34.3 g/dL (32-36); Mean Corpuscular Hgb 29.8 pg (27.0-32.0); Mean Corpuscular Volume 86.8 fL (81-99); Mean Platelet Vol. 10.5 fl (6.2-12.0); Monocyte# 1.02 X10^3/uL; Monocyte% 10.9 % (0-10); NRBC Flagged by Analyzer 0 % (0-5); Neutrophil # 7.09 X10^3/uL (2.7-7.7); Neutrophil % 75.8 % (47-70); Platelet Count 257 K/mm3 (150-450); RBC Distribution Width CV 12.6 % (11.6-14.6); RBC Distribution Width SD 40.1 fl (35.1-43.9); Red Blood Count 4.63 M/mm3 (4.2-5.4); White Blood Count 9.4 K/mm3 (4.4-11.0)
[2021-06-10 11:27] LABS: Squamous Epithelial Cells - UA 0-5 SEEN /hpf (5-10); White Blood Cells 5-10 SEEN /hpf (0-5)
[2021-06-10 11:41] LABS: AST(SGOT) 27 U/L (15-37); Alanine Aminotransfer ALT/SGPT 33 U/L (13-56); Albumin, Serum 3.5 g/dL (3.2-5.0); Alkaline Phosphatase 99 U/L (45-117); Anion Gap 6 (5-15); BUN 6 mg/dL (7-18); BUN/Creat Ratio 8.4 RATIO (10-20); Bilirubin, Direct 0.28 mg/dL (0.00-0.30); Calcium,Total 9.8 mg/dL (8.5-10.1); Chloride 104 mmol/L (98-107); Creatinine, Serum 0.71 mg/dL (0.55-1.02); EST Glomerular Filtration Rate 103 mL/min (>60); Est Glom Filt Rate - Afr Amer 125 mL/min (>60); Globulin 4.3 g/dL (2.2-4.2); Glucose 95 mg/dL (74-106); Potassium 3.4 mmol/L (3.5-5.1); Protein, Total 7.8 g/dL (6.4-8.2); Sodium Level 135 mmol/L (136-145)
[2021-06-10 12:21] LABS: hCG Titer Quant., Serum 13185 mIU/mL (1-3)
== END 2021-06-10 12:51 | disposition home or self-care (01) ==
PROVIDERS: Emergency Provider Emergency Medicine; PCP Nurse Practitioner Primary Care; Visit Provider Emergency Medicine
DX: O26.891 Other specified pregnancy related conditions, first trimester (principal); R31.9 Hematuria, unspecified; O34.91 Maternal care for abnormality of pelvic organ, unspecified, first trimester; O34.81 Maternal care for other abnormalities of pelvic organs, first trimester; N83.12 Corpus luteum cyst of left ovary; R10.2 Pelvic and perineal pain; Z3A.01 Less than 8 weeks gestation of pregnancy
CPT/HCPCS: 76817; 80048; 80076; 81001; 84702; 85025; 99283; A4216

== ENCOUNTER 2021-06-16 16:31 | Emergency (ER) | payer MEDICAID, SELFPAY ==
[2021-06-16 16:32] VITALS: BP 125/87; PULSE 77; RESP 15; TEMP 36.4; O2SAT 100; BMI 32.8
--- NOTE | 2021-06-16 16:49 | US_ITS ---
INDICATION: bleeding WITH -- HCG 756 ON 05/31/21, HCG- [address] TODAY -- PREVIOUS US 06/10/21 EXAMINATION: US OB Transvaginal TECHNIQUE: Transabdominal pelvic ultrasound was performed. Grayscale, spectral waveform, and color flow Doppler evaluation of the adnexa. COMPARISON: 06/10/2021. FINDINGS: UTERUS: Measures 9.1 x 7.2 x 5.2 cm. RIGHT OVARY: Measures 4.1 x 2 x 1.7 cm. Normal. LEFT OVARY: Measures 3.6 x 2.1 x 1.8 cm. Normal. FREE FLUID: None. INTRAUTERINE GESTATIONAL SAC(s) (size/shape): Single. Slightly irregular shape. Mean sac diameter 1.4 cm. YOLK SAC: Identified POLE: Identified CRL 0.3 cm. ESTIMATED GESTATION AGE: 6 weeks 1 day. HEART MOTION: not detected PLACENTA: Not visualized due to age. SUBCHORIONIC HEMORRHAGE: None. AMNIOTIC FLUID: Qualitatively normal. US/Transvaginal w/Preg US IMPRESSION: Findings compatible with failed . Electronically Signed: Valeriy Horta MD at 20:08 EST ,
[2021-06-16 17:17] LABS: Absolute Lymphocyte Count 2.21 X10^3/uL (0.83-4.51); Absolute Neutrophil Count 3.5 X10^3/uL (2.0-7.7); Basophil# 0.02 X10^3/uL; Basophil% 0.3 % (0-1); Differential Indicated SCAN CRITERIA MET; Hematocrit 35.7 % (37-47); Lymphocyte # 2.21 X10^3/ul (0.83-4.51); Lymphocyte % 32.9 % (19-41); Mean Corp Hgb Conc 33.6 g/dL (32-36); Mean Corpuscular Hgb 29.7 pg (27.0-32.0); Mean Corpuscular Volume 88.4 fL (81-99); Mean Platelet Vol. 9.6 fl (6.2-12.0); Monocyte# 0.67 X10^3/uL; NRBC Flagged by Analyzer 0 % (0-5); Neutrophil # 3.54 X10^3/uL (2.7-7.7); Neutrophil % 52.8 % (47-70); POSITIVE MORPHOLOGY YES; Platelet Count 371 K/mm3 (150-450); RBC Distribution Width SD 42.1 fl (35.1-43.9); Red Blood Count 4.04 M/mm3 (4.2-5.4); White Blood Count 6.7 K/mm3 (4.4-11.0)
--- NOTE | 2021-06-16 17:26 | EDS_ITS ---
HPI HPI - Female History of Present Illness Chief Complaint: Vag Bld, Preg Narrative Narrative: Patient is a G4, P2 female at approximately 7 weeks gestation who presents with vaginal bleeding. She states she was seen in the emergency department on Thursday, approximately 7 days ago, where an ultrasound was performed because she was having pelvic cramping. That resolved. She denies any vaginal cramping or pelvic pain. No fevers or chills. No chest pain or lightheadedness. She states that she started bleeding more heavily this morning to the point where she had to wear a pad. She has changed the pad every few hours. It is associate juvenile court judge than her normal menstrual flow. She called her seconds handler and was told to come to the emergency department for another ultrasound. She is unsure of her blood type. [facility] Medical History Anemia Knee pain Home Medications prenat.vits,daniel,[id number] 1 tab PO DAILY 02/21/19 [History Last Taken 08/18/19 09:00 1 tab] sertraline [Zoloft] 50 mg PO DAILY 06/10/21 [History Last Taken Unknown] Allergy/AdvReac Type Severity Reaction Status Date / Time amoxicillin Allergy Severe Swelling Verified 06/16/21 16:32 Social History Smoking Status: Never smoker alcohol intake: never ROS ROS ED ROS Narrative Constitutional: No fever, no chills. HEENT: No sore throat. No neck pain. No loss of vision. No rhinorrhea. Cardiovascular: No chest pain. No palpitations. No pedal edema. Respiratory: No cough, no shortness of breath. Abdominal: No abdominal pain. No nausea. No vomiting. Genitourinary: No dysuria. No hematuria. Positive vaginal bleeding, 1 pad every few hours. No pelvic cramping or pelvic pain. Musculoskeletal: No myalgias. No arthralgias. Neurologic: No headaches. No dizziness. No lightheadedness. Skin: No rash. No change in color. Psychiatric: No depression. No anxiety. EXAM Physical Exam Narrative Exam Narrative: Afebrile. Vital signs noted. HEENT: Normocephalic. Atraumatic. PERRL, EOMI. Neck soft and supple. No point tenderness or step off. Cardiovascular: Regular rate and rhythm. No murmurs, rubs, or gallops appreciated. Respiratory: No tachypnea. Lungs clear to auscultation bilaterally. Gastrointestinal: Abdomen soft, nontender, with normoactive bowel sounds. No rebound or guarding. Neurological: Awake. Alert. Nonfocal, nonlateralizing. Skin: No rash. Normal color. No pallor. Musculoskeletal: No pedal edema. Full range of motion extremities. Const Vital Signs: 06/16/21 16:32 Temperature 97.6 F L Temperature Source Temporal Pulse Rate 77 Respiratory Rate 15 Blood Pressure 125/87 H Blood Pressure Mean 99 Pulse Ox 100 Oxygen Delivery Method Room Air MDM MDM MDM Narrative Medical decision making narrative: Chaperoned pelvic exam will be performed. CBC was obtained and she has a normal hemoglobin of 12.0. RN ordered quantitative beta hCG which is pending. I reviewed her prior records and she has A positive as her blood type. Pelvic ultrasound has been ordered. Her blending supervisor pelvic examination did not show any pooling of blood in the vaginal vault. Os was closed on examination. Her hemoglobin is normal at 12.0. However, previously on Thursday with her prior visit her beta quantitative measurement was approximately 13,180. Today, it is only 13,002. Her obstetric ultrasound shows findings compatible with failed as there is no heart rate noted/no activity. Her gestational sac is irregularly shaped, and sized at 6 weeks 1 day. I then discussed patient with Sandy, the seconds handler. It was felt that the patient can be discharged home and they will contact her tomorrow to be seen in the office. She is to return to the emergency department with bleeding of a pad front to back within 1 hour. Disposition is discharged home in stable condition. Lab Data Attestation: I reviewed the patient's lab results. Labs: Laboratory Results - last 24 hr 06/16/21 06/16/21 17:02 17:02 WBC 6.7 RBC 4.04 L Hgb 12.0 Hct 35.7 L MCV 88.4 MCH 29.7 MCHC 33.6 RDW Std Deviation 42.1 RDW Coeff of Dk 13.0 Plt Count 371 MPV 9.6 Immature Gran % (Auto) 1.000 H Neut % (Auto) 52.8 Lymph % (Auto) 32.9 [place] % (Auto) 10.0 Eos % (Auto) 3.0 Baso % (Auto) 0.3 Absolute Neuts (auto) 3.5 Absolute Lymphs (auto) 2.21 Nucleated RBC % 0 Differential Comment SCANNED HCG, Quant 57340 H Radiography Diagnostic Testing: Clinical Impression(s) from Imaging Studies Obstetrics Ultrasound 06/16/21 16:49 IMPRESSION: Findings compatible with failed . Electronically Signed: Valeriy Horta MD at 20:08 EST , Discharge Plan Triage Chief Complaint: Vag Bld, Preg ED Provider: Delvis Segura Dx/Rx/DC Orders Clinical Impression: Incomplete miscarriage Instructions: ED MISCARRIAGE Incomplete Prescriptions: No Action prenat.vits,daniel,[id number] Tablet 1 tab PO DAILY RF: 0 sertraline [Zoloft] 50 mg Tablet 50 mg PO DAILY RF: 0 Primary Care Provider: Nabila Steward NP Referrals: Rosalie Vegas DO [STAFF PHYSICIAN] - 1 Day Nabila Steward NP, BEAM DYER OPERATOR-C [Primary Care Provider] - Activity Restrictions/Additional Instructions: Your ASSESSMENT DIRECTOR will contact you tomorrow as to when to be seen in the office. Return to the emergency department with vaginal bleeding as heavy as 1 pad front to back in 1 hour. Disposition Disposition: Home, Self Care
[2021-06-16 17:47] LABS: Differential Comment SCANNED
[2021-06-16 17:55] LABS: hCG Titer Quant., Serum 13002 mIU/mL (1-3)
[2021-06-16 21:21] VITALS: BP 126/73; PULSE 93; RESP 15; O2SAT 99
== END 2021-06-16 21:22 | disposition home or self-care (01) ==
PROVIDERS: Emergency Medicine; Emergency Provider Emergency Medicine; PCP Nurse Practitioner Primary Care; Visit Provider Emergency Medicine
DX: O03.4 Incomplete spontaneous abortion without complication (principal); Z3A.01 Less than 8 weeks gestation of pregnancy
CPT/HCPCS: 76817; 84702; 85025; 99283; A4216

== ENCOUNTER 2024-09-25 19:08 | Emergency (ER) | payer SELFPAY ==
[2024-09-25 19:09] VITALS: BP 124/112; PULSE 68; RESP 20; TEMP 36.1; O2SAT 100; BMI 32.5
--- NOTE | 2024-09-25 19:34 | CT_ITS ---
PROCEDURE: ABDOMEN/PELVIS WITHOUT CONT 09/25/2024 REASON FOR EXAM: R FLANK PAIN, N/V TECHNIQUE: Abdomen and pelvis CT without intravenous contrast. Noncontrast technique limits evaluation of the abdominal and pelvic viscera. Coronal and Sagittal reconstruction series were provided. One or more dose reduction techniques were used (e.g., Automated exposure control, adjustment of the mA and/or kV according to patient size, use of iterative reconstruction technique). PATIENT PREPARATION: Per protocol ORAL CONTRAST TYPE: None. COMPARISON: None. FINDINGS: Lung bases: Tiny right middle lobe pulmonary nodule (series 2, image 5), likely noncalcified granuloma or scarring. Otherwise unremarkable. Liver: Mild hepatomegaly. No biliary ductal dilation. Gallbladder: No radiopaque stones within the gallbladder. Spleen: Normal in size. Pancreas: The unopacified pancreas is unremarkable. Adrenals: Tiny left adrenal nodule, likely an adenoma. No right adrenal mass. Kidneys: Nonobstructing right lower pole nephrolithiasis. Mild right hydroureteronephrosis. No hydronephrosis or nephrolithiasis within the left kidney or renal collecting system. Bladder: Decompressed and poorly evaluated. Tiny calcification in the expected region of the right ureterovesical junction (series 2, image 145), measuring 0.3 cm. Reproductive Organs: An IUD is present. Adnexal regions are grossly unremarkable. Bowel: The bowel loops are nondilated. No ascites or pneumoperitoneum. Normal appendix. Lymph nodes: Visualization is limited without the use of IV contrast. No suspicious lymphadenopathy. Vasculature: The abdominal aorta and IVC contours are normal. Noncontrast technique limits evaluation. Bones: Unremarkable. CT/Abdomen/Pelvis without Cont IMPRESSION: 1. Mild right hydroureteronephrosis with probable stone at the right ureteroves ical junction. 2. Mild hepatomegaly. Reading Location: [id number]
--- NOTE | 2024-09-25 19:36 | ED.VIS.GI ---
HPI HPI - GI History of Present Illness Chief Complaint: Flank Pain Informant: patient Narrative Narrative: 34-year-old healthy female had sudden onset of severe right flank pain started yesterday. She gets occasional twinges of sharp pains in her right low back. Associated with nausea and vomiting. She states she was in the shower last night, felt like she had pressure in her pelvis and needed to push so she did an had the sensation of what felt like some type of hood of fluid, and then the pain suddenly resolved for several hours, and restarted in the middle of the night and has been severely painful ever since For the past 12-18 hours. States she has the sensation that she needs to push either urine or bowel movement, and then when she sits down to push she does not have either. When she was in the shower she does not know if she had any vaginal discharge because she was in the shower at the time, but states she did not see any blood or discolored discharge. At times when she sits to urinate she only has a couple drops come out. She has never had this pain before. No history of any surgeries in her abdomen. She has an IUD and so does not have regular menstrual cycles or any now. She denies any recent vaginal discharge or risk for STI. [facility] Medical History Knee pain Anemia Home Medications ?Medication ?Instructions ?Recorded ?Last Taken ?Type prenat.vits,daniel,[id number] 1 tab PO DAILY 02/21/19 08/18/19 09:00 History 1 tab sertraline 50 mg tablet (Zoloft) 50 mg PO DAILY 06/10/21 Unknown History ciprofloxacin HCl 500 mg tablet 500 mg PO BID #14 TABLETS 09/25/24 Unknown Rx ondansetron 8 mg disintegrating 8 mg PO Q8H PRN nausea and 09/25/24 Unknown Rx tablet vomiting #12 tabs oxycodone-acetaminophen 5 mg-325 1 tab PO Q6H PRN PRN Pain 3 days 09/25/24 Unknown Rx mg tablet #12 TABLETS Allergy/AdvReac Type Severity Reaction Status Date / Time amoxicillin Allergy Severe Swelling Verified 09/25/24 19:13 Social History Smoking Status: Never smoker alcohol intake: never ROS ROS ED Constitutional Constitutional ED: Denies chills or fever(s) Eyes Eyes: Denies change in vision or diplopia ENT ENT ED: Denies rhinorrhea or sore throat Cardiovascular Cardiovascular: Denies chest pain or palpitations Respiratory/Chest Respiratory/Chest: Denies cough or dyspnea Gastrointestinal Gastrointestinal: Reports abdominal pain, nausea and vomiting; Denies diarrhea Genitourinary Genitourinary ED: Reports as per HPI, difficulty urinating and flank pain; Denies dysuria or hematuria Musculoskeletal Musculoskeletal: Denies back pain or neck pain Integumentary Denies abscess or rash Neurologic Neurologic: Denies headache(s), paresthesias or weakness Psychiatric Psychiatric: Denies suicidal thoughts EXAM Physical Exam Const Vital Signs: 09/25/24 19:09 09/25/24 19:16 09/25/24 21:09 Temperature 97.0 F L Temperature Source Temporal Pulse Rate 68 52 L Respiratory Rate 20 H 18 Respiratory Effort Labored Respiratory Pattern Tachypnea Blood Pressure 124/112 H 131/73 H Blood Pressure Mean 116 92 Pulse Ox 100 99 Oxygen Delivery Method Room Air Room Air Positive well nourished and well developed Constitutional Narrative: Mild painful distress, keenly alert, cooperative pleasant General Appearance ED: well developed HEENT Reports moist mucous membranes normocephalic and atraumatic Eyes PERRL and EOMs intact bilaterally Neck full ROM and supple Resp normal respiratory effort and clear to auscultation bilaterally Cardio regular rate, regular rhythm and no murmurs GI non-distended GI Narrative: Tender in the right upper quadrant without guarding or rebound. No other areas of tenderness. Patient in severe pain during the exam. Auscultation: normoactive bowel sounds Palpation: soft Back/Spine Back/Spine Narrative: Normal inspection of low back no rash General Back: CVA tenderness right and other FROM Extremity normal to inspection General Extremety ED: Negative for edema, pulses abnormal or tenderness General Extremity: Negative for edema or pulses abnormal Neuro oriented x3, CN's II-XII intact bilaterally and no sensory deficits noted Sensorium / Orientation: awake and alert Motor Exam: strength 5/5 throughout Psych Mood & Affect: anxious Skin no rashes or lesions noted and no wounds MDM MDM MDM Narrative Medical decision making narrative: My suspicion is that this patient has a kidney stone, so after treating her symptoms, CT will be obtained and we will also obtain a to rule out ectopic given the location of her symptoms. I reviewed the CT images and the report which I agree with, it is consistent with hydroureter and hydronephrosis on the right, along with a tiny UVJ obstructing stone and another nonobstructing right renal stone. Discussed all this with them. She is feeling much better after treatment but still having some discomfort. She has a significant leukocytosis of almost 18, there is a leftward shift but no bands. Her urine shows very little signs of infection, but given the leukocytosis and going to treat her with antibiotics and send for culture. She is doing much better and is okay going home with expectant management. She is given urine strainers to go home with, prescriptions for medications as well as tamsulosin, and urologic follow-up if needed. We discussed reasons to return she is comfortable with that plan. Lab Data Attestation: I reviewed the patient's lab results. Labs: Laboratory Results - last 24 hr 09/25/24 19:15 WBC 17.8 H RBC 4.79 Hgb 14.4 Hct 41.6 MCV 86.8 MCH 30.1 MCHC 34.6 RDW Std Deviation 39.4 RDW Coeff of Dk 12.3 Plt Count 325 MPV 10.9 Immature Gran % (Auto) 0.400 Neut % (Auto) 79.0 H Lymph % (Auto) 14.3 L [place] % (Auto) 6.0 Eos % (Auto) 0.1 Baso % (Auto) 0.2 Absolute Neuts (auto) 14.1 H Absolute Lymphs (auto) 2.55 Nucleated RBC % 0 Sodium 141 Potassium 3.7 Chloride 105 Carbon Dioxide 20.6 L Anion Gap 15 BUN 10 Creatinine 1.24 H Estim Creat Clear Calc 64.15 Est GFR (MDRD) Non-Af 59 L BUN/Creatinine Ratio 8.3 L Glucose 112 H Calcium 11.6 H Serum , Qual NEGATIVE Urine Color Yellow Urine Clarity Turbid Urine pH 8.0 Ur Specific [place] 1.015 Urine Protein 30 H Urine Glucose (UA) Normal Urine Ketones 150 A* Urine Occult Blood Negative Urine Nitrite Negative Urine Bilirubin Negative Urine Urobilinogen Normal Ur Leukocyte Esterase 25 H Urine RBC 0 SEEN Urine WBC 5-10 SEEN Ur Squamous Epith Cells 0-5 SEEN Amorphous Sediment 3+ Urine Bacteria 1+ Urine Mucus 0 SEEN Radiography Diagnostic Testing: Clinical Impression(s) from Imaging Studies Abdomen/Pelvis CT 09/25/24 19:34 IMPRESSION: 1. Mild right hydroureteronephrosis with probable stone at the right ureterovesical junction. 2. Mild hepatomegaly. Reading Location: [facility] Discharge Plan Triage Chief Complaint: Flank Pain ED Provider: Mayo Wei Dx/Rx/DC Orders Clinical Impression: Renal colic on right side, Ureterolithiasis, Leukocytosis, Right nephrolithiasis Instructions: ED Urine Strainer, ED Kidney Stone with Pain Prescriptions: New ondansetron 8 mg tablet,disintegrating 8 mg PO Q8H PRN (Reason: nausea and vomiting) Qty: 12 0RF oxycodone-acetaminophen 5-325 mg tablet 1 tab PO Q6H PRN PRN (Reason: Pain) 3 Days Qty: 12 0RF ciprofloxacin HCl 500 mg tablet 500 mg PO BID Qty: 14 0RF No Action prenat.vits,daniel,[id number] Tablet 1 tab PO DAILY sertraline [Zoloft] 50 mg Tablet 50 mg PO DAILY Primary Care Provider: Nabila Steward NP Referrals: Buster Evangelista MD [Med Staff - Active Staff] - 1 Week if not improving Print Language: Bulgarian Disposition Disposition: Home, Self Care
--- OUTSIDE RECORDS SUMMARY | 2024-09-25 19:38 | XMS RPT_ITS | CCD ---
Author Organization [facility] Care Team Providers Care Design Coordinator Name Role Phone Oberhauser, Lida L Unavailable Unavailable Oberhauser, Lida L Unavailable Unavailable Oberhauser, Lida L Unavailable Unavailable Oberhauser, Lida L Unavailable Unavailable Oberhauser, Lida L Unavailable Unavailable Oberhauser, Lida L Unavailable Unavailable Oberhauser, Lida L Unavailable Unavailable Oberhauser, Lida L Unavailable Unavailable Oberhauser, Lida L Unavailable Unavailable Oberhauser, Lida L Unavailable Unavailable Oberhauser, Lida L Unavailable Unavailable Oberhauser, Lida L Unavailable Unavailable Oberhauser, Lida L Unavailable Unavailable Oberhauser, Lida L Unavailable Unavailable Oberhauser, Lida L Unavailable Unavailable Sanchez, Audie Unavailable Unavailable Sanchez, Audie Unavailable Unavailable Unavailable Primary Care Provider Unavailabl e Unavailable Primary Care Provider Unavailabl e PHYSICIAN, NONE Primary Care Unavailable ULI CATES MD Attending Unavailable PHYSICIAN, NONE Primary Care Physician Unavailab le Allergies Allergy Classification Reported Allergen(s) Allergy Type Date of Onset Reaction(s) Facility (4 sources) amoxicillin; Translations: [amoxicillin] Drug Allergy 7 Hives, Intolerance [facility] Repository Medications Current Medications Medication Drug Class(es) Dates Sig (Normalized) Sig (Original) acetaminophen 325 mg oral tablet (1 source) Start: 08-21-2019 take 650 mg by mouth every six hours, then take 4000 mg by mouth every twenty-four hours 650 mg, Oral, EVERY 6 HOURS, First dose on 08/21/19 at 1045 Maximum dose of acetaminophen is 4000 mg from all sources in 24 hours. [id number] 200 actuat albuterol 0.09 mg/actuat metered dose inhaler (1 source) beta2-Adrenergic Agonist Start: 10-06-2024 take 1 puff(s) by inhalation every six hours as needed for wheezing ProAir HFA MDI (90 mcg/inh) inhalation aerosol 1 puff(s), Inhalation, q6h, PRN as needed for wheezing, # 8.5 gram(s), 0 Refill(s) Start Date: 01/24/24 Status: Ordered 120 actuat albuterol 0.1 mg/actuat / ipratropium bromide 0.02 mg/actuat inhalation spray (1 source) Anticholinergic, beta2-Adrenergic Agonist Start: 01-24-2024 take 1 dose by inhalation four times daily Combivent Respimat CFC free 20 mcg-100 mcg/inh inhalation aerosol Dose = 1 puff(s), Inhalation, QID, # 4 gram(s), 0 Refill(s) Start Date: 01/24/24 Status: Ordered benzocaine 200 mg/ml / menthol 5 mg/ml topical spray (1 source) Standardized Chemical Allergen Start: 08-21-2019 Topical, PRN, Pain, Starting 08/21/19 at 1027 Apply to perineal area. Patient is capable and may self administer at bedside. docusate sodium 100 mg oral capsule (2 sources) Start: 08-18-2019 End: 08-20-2019 take 100 mg by mouth twice daily as needed for constipation 100 mg, Oral, 2 TIMES DAILY PRN, Constipation, Starting 08/21/19 at 1027 Do not crush or break. ibuprofen 600 mg oral tablet (3 sources) Nonsteroidal Anti-inflammatory Drug Start: 08-24-2019 take 1 tablet by mouth every six hours as needed for pain ibuprofen (ADVIL;MOTRIN) 600 MG tablet Take 1 tablet by mouth every 6 hours as needed for Pain 30 tablet 1 08/24/2019 Active Start: 08-20-2019 take 600 mg by mouth every six hours 600 mg, Oral, EVERY 6 HOURS, First dose on 08/21/19 at 1045 Do not crush or chew. labetalol hydrochloride 200 mg oral tablet (9 sources) beta-Adrenergic George Start: 08-24-2019 take 4 tablets by mouth every eight hours labetalol (NORMODYNE) 200 MG tablet Take 4 tablets by mouth every 8 hours 60 tablet 3 08/24/2019 Active Start: 08-23-2019 labetalol (NOR MODYNE) tablet 800 mg Start: 08-22-2019 End: 08-23-2019 labetalol (NORMODYNE) tablet 400 mg Start: 08-20-2019 End: 08-22-2019 labetalol (NORMODYNE) tablet 200 mg Start: 08-20-2019 labetalol (NOR MODYNE;TRANDATE) injection 40 mg Start: 08-20-2019 labetalol (NOR MODYNE;TRANDATE) injection 20 mg Start: 08-20-2019 labetalol (NOR MODYNE;TRANDATE) 5 MG/ML injection lansinoh lanolin ointment (1 source) Start: 08-21-2019 Topical, PRN, Dry Skin, nipple discomfort, Starting 08/21/19 at 1027, levonorgestrel 0.328636 mg/hr intrauterine system (1 source) Progestin, Progestin-containing Intrauterine Device Start: 06-26-2021 End: 06-24-2028 levonorgestrel (MIRENA) 20 mcg/24 hours (7 yrs) 52 mg IUD Indications: Encounter for IUD insertion 1 Each by INTRAUTERINE route as directed. 1 Each 0 06/26/2021 06/24/2028 Active Comment on above: 1 Each by INTRAUTERI NE route as directed. NIFEdipine 90 mg osmotic 24 hr extended release oral tablet (6 sources) Dihydropyridine Calcium Channel George Start: 08-25-2019 take 1 tablet by mouth once daily NIFEdipine (PROCARDIA XL) 90 MG extended release tablet Take 1 tablet by mouth daily 30 tablet 3 08/25/2019 Active Start: 08-24-2019 NIFEdipine (WV OCARDIA XL) extended release tablet 90 mg Start: 08-23-2019 NIFEdipine (WV OCARDIA XL) extended release tablet 30 mg Start: 08-21-2019 End: 08-23-2019 NIFEdipine (PROCARDIA XL) ex tended release tablet 60 mg Start: 08-18-2019 End: 08-20-2019 NIFEdipine (PROCARDIA XL) ex tended release tablet 30 mg 2 ml ondansetron 2 mg/ml injection (1 source) Serotonin-3 Receptor Antagonist Start: 08-21-2019 4 mg, Intravenous, EVERY 6 HOURS PRN, Nausea, Starting 08/21/19 at 1027, predniSONE 10 mg oral tablet (1 source) Start: 01-24-2024 predniSONE 10 mg oral tablet 3, PO, BID, 6 po 1st dose then 3 po q12, # 33 tab(s), 0 Refill(s) Start Date: 01/24/24 Status: Ordered simethicone 80 mg chewable tablet (1 source) Start: 08-21-2019 take 80 mg by mouth every six hours as needed 80 mg, Oral, EVERY 6 HOURS PRN, Cramping, Flatulence, Starting 08/21/19 at 1027, witch evan 500 mg/ml medicated pad (1 source) Start: 08-21-2019 Topical, PRN, Hemorrhoids, For perineal pain or discomfort, Starting 08/21/19 at 1027 Apply to perineal area. Patient is capable and may self administer at bedside. Completed/Discontinued Medications Medication Drug Class(es) Dates Sig (Normalized) Sig (Original) betamethasone 3 mg/ml / betamethasone acetate 3 mg/ml injectable suspension (1 source) Corticosteroid Start: 08-19-2019 End: 08-19-2019 betamethasone acetate-betamethas one sodium phosphate (CELESTONE) injection 12 mg calcium chloride 0.0014 meq/ml / potassium chloride 0.004 meq/ml / sodium chloride 0.103 meq/ml / sodium lactate 0.028 meq/ml injectable solution (2 sources) Start: 08-20-2019 End: 08-21-2019 lactated ringers bolus 1 ml hydrALAZINE hydrochloride 20 mg/ml injection (2 sources) Arteriolar Vasodilator Start: 08-20-2019 End: 08-20-2019 hydrALAZINE (APRESOLINE) injection 10 mg Start: 08-20-2019 End: 08-20-2019 hydrALAZINE (APRESOLINE) inj ection 10 mg 500 ml magnesium sulfate 40 mg/ml injection (2 sources) Start: 08-20-2019 End: 08-22-2019 magnesium sulfate (20 G/500 mL) infusion Start: 08-18-2019 End: 08-19-2019 2 g/hr (50 mL/hr), Intraveno us, at 50 mL/hr, CONTINUOUS, Starting [facility] 08/18/19 at 2000 misoprostol (CYTOTEC) pre-sp lit tablet TABS 25 mcg (1 source) Start: 08-20-2019 End: 08-20-2019 misoprostol (CYTOTEC) pre-sp lit tablet TABS 25 mcg oxytocin (PITOCIN) 30 units in 500 mL infusion (3 sources) Start: 08-21-2019 End: 08-21-2019 125 mL/hr, Intravenous, at 1 25 mL/hr, CONTINUOUS, Starting 08/21/19 at 0915, For 4 hours For Post Use Only To follow initial bolus immediately after delivery. Verify patient received oxytocin 250cc bolus at delivery followed by an additional 250cc over 1 hour (250cc/hr) Start: 08-20-2019 End: 08-21-2019 oxytocin (PITOCIN) 30 units in 500 mL infusion Start: 08-20-2019 End: 08-21-2019 oxytocin (PITOCIN) 30 units in 500 mL infusion Vit w/Az-Xkahxypki-HR (PNV PO) (1 source) take 1 tablet by mouth once daily Vit w/Sz-Fkfypsfvs-UL (PNV PO) Take 1 tablet by mouth daily 0 Suspended vitamin 27-1 MG tablet 1 tablet (1 source) Start: 08-18-2019 End: 08-20-2019 take 1 tablet by mouth once daily 1 tablet, Oral, DAILY, First dose on Shelia 08/18/19 at 2000 3 ml sodium chloride 9 mg/ml injection (1 source) Start: 08-18-2019 End: 08-20-2019 10 mL, Intravenous, EVERY 12 HOURS SCHEDULED (2 times per day), First dose on Shelia 08/18/19 at 2100 Problems Active Problems Problem Classification Problem Date Documented Date Episodic/Chronic Contraceptive and procreative management (1 source) Intrauterine contraceptive device in situ; Translations: [Encounter for routine checking of intrauterine contraceptive device] Episodic Essential hypertension (1 source) Essential hypertension; Translations: [Essential (primary) hypertension] Onset: 01-24-2024 Chronic Hypertension complicating ; childbirth and the puerperium (2 sources) Severe pre-eclampsia; Translations: [Preeclampsia, severe, third trimester] Onset: 08-18-2019 08-18-2019 Episodic Other upper respiratory disease (1 source) Bronchospasm; Translations: [Acute bronchospasm] Onset: 01-24-2024 Episodic Residual codes; unclassified (2 sources) Gestation period, 31 weeks; Translations: [31 weeks gestation of ] 08-21-2019 Episodic Past or Other Problems Problem Classification Problem Date Documented Da te Episodic/Chronic Blindness and vision defects (2 sources) Myopia; Translations: [Myopia, unspecified eye] Onset: 06-24-2016 06-24-2016 Episodic Results Test Name Value Interpretation Reference Range Facility XR CHEST 2 VIEWSon 4 XR CHEST 2 VIEWS ORIGINAL EXAMINATION: TWO XRAY VIEWS OF THE CHEST 01/24/2024 8:40 pm COMPARISON: None. HISTORY: ORDERING SYSTEM PROVIDED HISTORY: Reason for Exam: SOB/Cough/Fever FINDINGS: Normal cardiomediastinal silhouette. No focal consolidation. No large pleural effusion or pneumothorax. No acute osseous findings. IMPRESSION: No acute radiographic findings. I have personally reviewed the images of this examination and agree with the resident's findings and interpretation. Interpreted by: Preston South DO Preliminary Report By: Matthew Coughlin Electronically signed By Preston South DO Dictated Date: 01/24/2024 8:51:22 PM Prelim Date: 01/24/2024 8:52:21 PM Sign Date: 01/24/2024 9:02:06 PM Ordering Provider: ULI CATES [facility] CNOVon 07-26-2021 CNOV Office Visit (OBGYWM ) -- NAV ROSS ([id number]) 1990 F Date Time Provider Department 07/26/21 2:00 PM MACKENZIE HESS OBGYWM During your visit today, we recorded the following information about you: Blood pressure Weight 114/76 81.6 kg Mackenzie Hess MD 07/26/2021 3:54 PM Signed Nav Ross presents today for IUD check. She had a Mirena placed on 06/26/21. She has had no complications since placement. Has checked strings. No bleeding. No pain w/ intercourse. Has good support after the miscarriage and is processing this. REVIEW OF SYSTEMS: no new c/o PHYSICAL EXAMINATION: Wt 180 lb (81.6kg) ABDOMEN:soft, non-tender, no masses, no hepatosplenomegaly and no lymphadenopathy EXTERNAL GENITALIA: Normal genitalia and Bartholins, Urethra, Sken'e normal CERVIX: smooth, no lesions. IUD strings visible. IMPRESSION/PLAN: IUD correctly positioned. Mackenzie Hess M.D. Referring Provider: SELF [[id number]] Allergies As of Date: 07/26/2021 Noted Allergy Reaction AMOXICILLIN 06/24/2016 5 - Intolerance Date Reviewed: 07/26/2021 Reviewed by: Mackenzie Hess MD - Fully Assessed Reason for Visit: IUD [60] Primary Visit Diagnosis:IUD check up [Z30.431] Prescriptions as of 07/26/2021 - levonorgestrel (MIRENA) 20 mcg/24 hours (7 yrs) 52 mg IUD 1 Each by INTRAUTERINE route as directed. Problem List As Of Date 07/26/2021 Noted Resolved Myopia [H52.10] 06/24/2016 Regular astigmatism [H52.229] 06/24/2016 Encounter Status:Closed by MACKENZIE HESS on 07/26/21 [facility] CNOVon 06-26-2021 CNOV Office Visit (OBGYWM ) -- NAV ROSS ([id number]) 1990 F Date Time Provider Department 06/26/21 1:10 PM MACKENZIE HESS OBGYWM During your visit today, we recorded the following information about you: Weight 81.2 kg Mackenzie Hess MD 06/26/2021 1:43 PM Megan Quach presents today for IUD insertion for contraception. No LMP recorded. GC/chlamydia: Not done: no risk factors and/or patient declines screening test: n/a s/p miscarriage 8 days ago w/ IPAS Side effects including irregular bleeding were discussed with the patient. The patient understands that it should be removed in 6 years or sooner if the patiient desires a . IUD source: office provided IUD lot #: [id number] Exp date: 07/2023 UNIVERSAL PROTOCOL / SAFETY CHECKLIST Procedure to be Performed: Mirena IUD insertion Sign In: A Moment of CARE was completed. Personnel directly involved with the procedure wore the appropriate PPE (Personal Protective Equipment). Patient/Surrogate Stated/Verified: PATIENT VERIFIED(optional for EMERGENT procedures): Patient name, Date of , Relevant allergies and The intended procedure Time Out Communication: Intended patient and procedure match the source documents. Consent documented and matches the intended procedure. Implant(s) inserted: Correct implant(s) confirmed including size and side. and Expiration date(s) reviewed. Sign Out: SIGN OUT (optional for EMERGENT procedures): No specimen collected. All instruments, equipment, possible retained foreign bodies accounted for. Post-procedure follow-up management communicated and Plan of Care Visit completed when applicable. Mackenzie Hess M.D. The uterus sounded to 10 cm and the uterus is Retroverted.. After prepping the cervix with betadine and using sterile technique, the Mirena IUD was inserted without difficulty and the string was cut to 2cm from the external os of the cervix. Patient tolerated procedure well. PLAN: Patient was advised to observe for signs and symptoms of infection including but not limited to fever, malodorous vaginal discharge and/or pain. The patient was told to check the string monthly for accurate placement. Bleeding expectations were reviewed. Follow up for next annual exam or sooner as needed. MD Beatris Handy [facility] 06/26/2021 1:24 PM Signed POST IUD INSTRUCTIONS You may have irregular bleeding during the first 3 months of use. You may have mild-severe cramping for the next 48 hours. You may use over the counter medication (Motrin, Tylenol) as needed. Your IUD must be removed or replaced based on the following table: IUD Type Removed or replaced within: Monique 3 years Kyleena 5 years Mirena 7 years Paragard 10 years Call my office for signs/symptoms of infection such as severe cramping, fever, or unusual bleeding. Check for string placement as instructed by your doctor. If you have any additional questions, please contact the office. Referring Provider: MACKENZIE HESS [[id number]] Allergies As of Date: 06/26/2021 Noted Allergy Reaction AMOXICILLIN 06/24/2016 5 - Intolerance Date Reviewed: 06/26/2021 Reviewed by: Beatris Lema Ma - Fully Assessed Reason for Visit: Insertion Of IUD [291] Primary Visit Diagnosis:Encounter for IUD insertion [Z30.430] Order(s):[] levonorgestrel 20 mcg/24 hours (7 yrs) 52 mg 1 Each intrauterine device (MIRENA)Disp: Rfl: levonorgestrel (MIRENA) 20 mcg/24 hours (7 yrs) 52 mg IUD1 Each by INTRAUTERINE route as directed.Disp: 1 EachRfl: 0 Prescriptions as of 06/26/2021 - levonorgestrel (MIRENA) 20 mcg/24 hours (7 yrs) 52 mg IUD 1 Each by INTRAUTERINE route as directed. Problem List As Of Date 06/26/2021 Noted Resolved Myopia [H52.10] 06/24/2016 Regular astigmatism [H52.229] 06/24/2016 Other instructions from your clinician: POST IUD INSTRUCTIONS You may have irregular bleeding during the first 3 months of use. You may have mild-severe cramping for the next 48 hours. You may use over the counter medication (Motrin, Tylenol) as needed. Your IUD must be removed or replaced based on the following table: IUD Type Removed or replaced within: Monique 3 years Kyleena 5 years Mirena 7 years Paragard 10 years Call my office for signs/symptoms of infection such as severe cramping, fever, or unusual bleeding. Check for string placement as instructed by your doctor. If you have any additional questions, please contact the office. Prescriptions ordered this encounter Disp Refills Start End LEVONORGESTREL 20 MCG/24 HOURS (7 YR* 06/26/2021 06/26/2021 Route: INTRAUTERINE LEVONORGESTREL 20 MCG/24 HOURS (7 YR* 1 Ea* 0 06/26/2021 06/24/2028 Class: In Office Route: INTRAUTERINE Si Each by INTRAUTERINE route as directed. Disposition: Return in about 5 weeks (around 07/31/2021) for Follow Up In 4-6 Weeks. (more content not included)... Normal [facility] AP SENDOUTS (FOR LAB USE ONL Y)on 06-19-2021 AP SENDOUTS Normal [facility] Comment on above: Order Comment: Speci men Type: TISSUE SPECIMENOrdering Facility: [facility] Address: [address] [place] [address] Result Comment: Bloc ks A1 and A3 of this case were sent to [facility] for genotyping and the results are scanned in and attached. Performed By: #### A PSO ####[facility] LABCLIA [id number] [facility] [id number] [place] [id number] [facility] CNOVon 06-19-2021 CNOV Office Visit (OBGYWM ) -- NAV ROSS ([id number]) 1990 F Date Time Provider Department 06/19/21 2:00 PM MACKENZIE HESS OBGYWJesus During your visit today, we recorded the following information about you: Blood pressure 118/80 Mackenzie Hess MD 06/19/2021 2:42 PM Signed UNIVERSAL PROTOCOL / SAFETY CHECKLIST Procedure to be Performed: IPAS Sign In: A Moment of CARE was completed. Personnel directly involved with the procedure wore the appropriate PPE (Personal Protective Equipment). Patient/Surrogate Stated/Verified: PATIENT VERIFIED(optional for EMERGENT procedures): Patient name, Date of , Relevant allergies and The intended procedure Time Out Communication: Intended patient and procedure match the source documents. Consent documented and matches the intended procedure. Relevant labs, photos, and/or imaging studies have been reviewed. Medications required for procedure verified. No implant(s) inserted. Sign Out: SIGN OUT (optional for EMERGENT procedures): All specimen containers correctly labeled. All instruments, equipment, possible retained foreign bodies accounted for. Post-procedure follow-up management communicated and Plan of Care Visit completed when applicable. Procedure note: Speculum was placed in the vagina. After prepping the cervix with betadine paracervical block was performed using 7cc of 1% lidocaine with 1:100,000 epi. Cervix was grasped with single tooth tenaculum. Cervix was dilated. Using sterile technique, the Manual Vacuum Aspiration device with size 6 cannula was inserted into the uterus and contents were evacuated. Post-procedure ultrasound confirmed no retained tissue. Post-procedure vital signs were obtained and stable Specimen was sent to pathology Patient tolerated procedure well. PLAN: Patient was advised to observe for signs and symptoms of infection including but not limited to fever, malodorous vaginal discharge and/or pain. Bleeding expectations were reviewed. Follow up: next week for IUD insertion. MD Jamaica Handy RN 06/19/2021 1:44 PM Signed Information and Instructions: After a Manual Uterine Aspiration (IPAS) Procedure Bleeding - Most people have some bleeding after an aspiration procedure. The amount differs for each everyone, ranging from no bleeding to moderate period-like bleeding and lasting for a few days to 2-6 weeks. - It is normal to have blood clots when you stand up or use the bathroom during the first few days. - It is ok to be as active as you feel ready to be. You may notice more bleeding and cramping during activity. - Please call if you are completely soaking through a pad every hour for 2 hours, or passing multiple large clots or larger and larger clots. Cramping - Most women have some cramping after the procedure. The amount of discomfort varies, as everyone experiences pain in a different way. - Some women find that a heating pad or hot water bottle on the stomach or back helps. If you don?t have a heating pad, put some rice into a sock and heat it in the microwave, but beware, it?s hot! You may also take ibuprofen (Motrin/ Advil) or naproxen (Aleve). If you can?t take either of those medications you may use acetaminophen (Tylenol). - Please call if you have severe pain or cramps that are not relieved by the pain medication. Fever - Please call if your temperature is 100.4 degrees or higher for more than 2 hours. - Fever can be a sign of infection, so call your doctor if you are feeling sick. - You may have received a medication called misoprostol, which can cause a fever on the day of your procedure that goes away on it's own and is not concerning. symptoms - You may have symptoms such as nausea, breast tenderness, or fatigue that last for a few days after the procedure. You may also notice some nipple discharge or breast swelling. If this occurs, wear a supportive bra and avoid stimulation. You may also use a cold compress. Your test may remain positive for up to 4 weeks. - Please call if you have symptoms that last longer than 7 ? 10 days. control - For most people, it is physically possible (though unlikely) to become in the next 2 ? 4 weeks, so it is important to start a control method if you are not planning a right away. Please discuss this with your provider if you have not already chosen a method. - If you would like to become soon after this procedure, please discuss this with your doctor. Follow up - Most women do not need a follow up appointment. Your doctor may recommend one, or you may choose to schedule one if you have any concerns, problems, or questions. - Please do not put anything in your vagina for 1 week (no vaginal intercourse, toys, tampons, or douching). - Do not (more content not included)... Normal [facility] SURGICAL PATHOLOGYon 022 ADDENDUM 1: Normal [facility] Comment on above: Order Comment: Speci men Type: TISSUE SPECIMENOrdering Facility: [facility] Address: [address] [place] [address] Result Comment: Mole cular diagnostic testing on this case demonstrated both paternal and maternal alleles, indicating a nonmolar . Additional details are available in the full report, which can be viewed in the electronic medical record. Addendum electronically signed by Maegan Singh MD on 07/17/2021 at 1:15 PM Performed By: #### S ####[facility] LABCLIA [id number] [address] [place] CASE REPORT Normal [facility] Comment on above: Order Comment: Speci men Type: TISSUE SPECIMENOrdering Facility: [facility] Address: [address] [place] [address] Result Comment: Surg ical Pathology Report Case: [id number] Authorizing Provider: Mackenzie Hess MD Collected: 06/19/2021 02:34 PM Ordering Location: OB/Gynecology Received: 06/19/2021 04:42 PM Pathologist: Maegan Singh MD Specimen: PRODUCTS OF CONCEPTION Performed By: #### S ####[facility] LABCLIA [id number] [address] CLINICAL HISTORY approx 6-7 weeks, SA B, IPAS Normal [facility] Comment on above: Order Comment: Speci men Type: TISSUE SPECIMENOrdering Facility: [facility] Address: [address] [place] [address] Performed By: #### S ####[facility] LABIA [id number] [address] DIAGNOSIS COMMENT The chorionic villi show focal enlargement with variable villous enlargement, a structure possibly representing a disrupted cistern, irregular villous contours, and mild multipolar trophoblastic proliferation. Perivillous fibrin involves 5 to 10% of chorionic villi. At this gestational age, dysmorphic features of aneuploidy and partial hydatidiform mole are not reliably distinguished by H AND E morphology, and additional testing can provide a more specific result. The specimen will be submitted for STR genomic analysis and the results will be reported in an addendum. Normal [facility] Comment on above: Order Comment: Speci men Type: TISSUE SPECIMENOrdering Facility: [facility] Address: [address] [place] [address] Performed By: #### S ####[facility] [facility] [id number] [address] FINAL DIAGNOSIS Normal [facility] Comment on above: Order Comment: Mini umang Type: TISSUE SPECIMENOrdering Facility: [facility] Address: [address] [place] [address] Result Comment: A. P roducts of conception, 6 to 7 weeks, IPAS: - Early first trimester chorionic villi with abnormal villous morphology. - Decidua with inflammation, breakdown and blood clot CHRISTINE 06/24/2021 Performed By: #### S ####[facility] LABCLIA [id number] [place] [address] [place] FINAL PERFORMING LAB Normal [facility] Comment on above: Order Comment: Speci men Type: TISSUE SPECIMENOrdering Facility: [facility] Address: [address] [place] [address] Result Comment: Diag nostic interpretation performed at [facility], [address] [place] [address] CLIA# [id number] Parts Clerk: Jed Luu M.D. Performed By: #### S ####[facility] LAB[facility]IA [id number] [address] [place] GROSS DESCRIPTION Normal [facility] Comment on above: Order Comment: Speci men Type: TISSUE SPECIMENOrdering Facility: [facility] Address: [address] [place] [address] Result Comment: A. P RODUCTS OF CONCEPTION. Received in formalin labeled as products of conception are multiple segments of hemorrhagic material and de los santos-pink soft tissue aggregating to 5.0 x 4.0 x 1.2 cm. Chorionic villi are identified. Vesicles and fragments are not grossly identified. Communications Technologist sections are submitted in 3 cassettes. MLG June 20, 2021 9:32 AM Gross examination performed at [facility], [address] [place] [address] Performed By: #### S ####[facility] LABIA [id number] [place] [address] [place] B-HCG SerPl-aCncon 2 [place] [address].0 m[IU]/mL High <5.0 [facility] Comment on above: Order Comment: Speci men Type: BLOOD SPECIMENOrdering Facility: [facility] Address: [address] [place], [place] [id number] Result Comment: GLADIS TITATIVE HCG NORMAL RANGES Weeks of Gestation (Weeks Since LMP) 3 Weeks (5.8-71.2 mIU/mL) 4 Weeks (9.5-750 mIU/mL) 5 Weeks (217-7138 mIU/mL) 6 Weeks (158-14913 mIU/mL) 7 Weeks (3697-663201 mIU/mL) 8 Weeks (74095-065389 mIU/mL) 9 Weeks (59753-771882 mIU/mL) 10 Weeks (21863-496574 mIU/mL) 12 Weeks (38455-752474 mIU/mL) Referenced to 4th IS of [facility] Performed By: #### 2 1198-7 ####[facility] LABCLIA [id number] [facility] [id number] [address] [facility] CNOVon 06-18-2021 CNOV Office Visit (OBGYWM ) -- NAV ROSS ([id number]) 1990 F Date Time Provider Department 06/18/21 3:20 PM MACKENZIE HESS OBGYWJesus During your visit today, we recorded the following information about you: Blood pressure Weight 120/82 81.3 kg Mackenzie Hess MD 06/19/2021 1:47 PM Signed Nav Ross is a 30 year old female who presents for problem visit for miscarriage. She conceived on Mirena, Mirena no longer intrauterine. She had some cramping and bleeding on 06/16 and was seen in ED. F/u today for formal US. ED and US records reviewed. C/w 5-6 week size SAB, approx 7 weeks based on best clinical estimate. OB History No obstetric history on file. [employer] History LMP: Age at Menarche: Age at First : Age at Menopause: [employer] History Comments: Sexual Activity: No sexual activity data on record; No partner data on record Contraception: No contraception data on record PAST MEDICAL HISTORY Diagnosis Date - NEGATIVE MEDICAL HISTORY No past surgical history on file. FAMILY HISTORY Problem Relation Age of Onset - other (Other) Father stroke Social History Tobacco Use - Smoking status: Never Smoker - Smokeless tobacco: Never Used Substance Use Topics - Alcohol use: No - Drug use: Not on file No current outpatient medications on file. No current facility-administered medications for this visit. Allergies As of Date: 06/18/2021 Allergen Noted Reaction AMOXICILLIN 06/24/2016 Intolerance Fully Assessed 06/18/2021 Allergies and current medication updated:Yes EXAM: BP 120/82 Wt 179 lb 3.2 oz (81.3kg) GENERAL: pleasant, female in no apparent distress ASSESSMENT AND PLAN: SAB- recheck quant US and ED records, cbc and HCG levels reviewed R/B/A to expectant vs medical vs surgical management reviewed. Would like IPAS in office. Prophylactic doxy ordered. Questions answered. [place] did [place] [address] to [address] confirming SAB. She is uncertain about contraception plans in near future. Medical Decision Making: Problems: Moderate: New problem with uncertain prognosis Data: Unique source(s) for external note(s) reviewed: 3+ Unique test result(s) reviewed: 1 Risk: Moderate: Decision on minor surgery w/ risk factors Medical Decision Making Level: 4 - Moderate Mackenzie Hess MD Referring Provider: NABILA BOYCE [[id number]] Allergies As of Date: 06/18/2021 Noted Allergy Reaction AMOXICILLIN 06/24/2016 5 - Intolerance Date Reviewed: 06/18/2021 Reviewed by: Mackenzie Hess MD - Fully Assessed Reason for Visit: Follow Up [171] Cmt: mab Primary Visit Diagnosis:Miscarriage [O03.9] Other Visit Diagnoses:Postoperative pain [G89.18] 7 weeks gestation of [Z3A.01] Order(s):[] doxycycline monohydrate (MONODOX) 100 mg capsuleTake 2 capsules by mouth one time only for 1 dose. with lunchDisp: 2 capsuleRfl: 0 [] oxyCODONE IR (ROXICODONE) 5 mg immediate release tabletTake 1 tablet by mouth one time only for 1 dose.Disp: 1 tabletRfl: 0 [] keTORolac 60 mg injection (TORADOL)Disp: Rfl: WHI (OFFICE IPAS) [[id number]] Order #: [id number] HCG QUANTITATIVE [SQHCGQT] Order #: [id number] FUTURE Problem List As Of Date 06/18/2021 Noted Resolved Myopia [H52.10] 06/24/2016 Regular astigmatism [H52.229] 06/24/2016 Prescriptions ordered this encounter Disp Refills Start End DOXYCYCLINE MONOHYDRATE 100 MG CAPSU* 2 ca* 0 06/18/2021 06/18/2021 Route: ORAL Sig: Take 2 capsules by mouth one time only for 1 dose. with lunch OXYCODONE 5 MG TABLET 1 ta* 0 06/18/2021 06/18/2021 Route: ORAL Sig: Take 1 tablet by mouth one time only for 1 dose. KETOROLAC 60 MG/2 ML INTRAMUSCULAR S* 06/19/2021 06/19/2021 Route: INTRAMUSCULA Encounter Status:Closed by MACKENZIE HESS on 06/19/21 Normal [facility] CNOVon 06-17-2021 CNOV Office Visit (OBGYWM ) -- NAV ROSS ([id number]) 1990 F Date Time Provider Department 06/17/21 3:00 PM NABILA BOYCE During your visit today, we recorded the following information about you: Blood pressure Weight 120/78 81.2 kg Nabila Boyce APRN.CNM 06/17/2021 4:49 PM Signed Nav Ross is a 30 year old female who presents for problem visit for miscarriage HPI: presents today with increased vaginal bleeding, cramping, and follow up from emergency room visit for miscarriage. Seen on 06/10/21 for vaginal bleeding, viable single IUP seen at 6w1d. Started bleeding yesterday morning and and increased more than her normal period. Seen in ED in evening around 4 pm. Bleeding and cramping increased. Has been passing small to medium size clots throughout the week. Pain today is improved. Rating pain 4-5/10, prior was 8/10. Currently denies any dizziness, excessive bleeding or pain. History of miscarriage at 12 weeks, had DANDC OB History No obstetric history on file. [employer] History LMP: Age at Menarche: Age at First : Age at Menopause: [employer] History Comments: Sexual Activity: No sexual activity data on record; No partner data on record Contraception: No contraception data on record PAST MEDICAL HISTORY Diagnosis Date - NEGATIVE MEDICAL HISTORY No past surgical history on file. FAMILY HISTORY Problem Relation Age of Onset - other (Other) Father stroke Social History Tobacco Use - Smoking status: Never Smoker - Smokeless tobacco: Never Used Substance Use Topics - Alcohol use: No - Drug use: Not on file No current outpatient medications on file. No current facility-administered medications for this visit. Allergies As of Date: 06/17/2021 Allergen Noted Reaction AMOXICILLIN 06/24/2016 Intolerance Fully Assessed 06/17/2021 REVIEW OF SYSTEMS Abdomen: No bloating, early satiety, indigestion, or increased flatulence. No nausea, vomiting, diarrhea, or constipation. Bladder: No dysuria, gross hematuria, urinary frequency, urinary urgency, or incontinence. Breast: No breast lumps, nipple d/c, overlying skin changes, redness or skin retraction. Expanded ROS: N/A Allergies and current medication updated:Yes EXAM: BP 120/78 Wt 179 lb (81.2kg) GENERAL: pleasant, female. Tearful HEENT: Normocephalic and atraumatic NECK: Supple and full range of motion CHEST: Normal inspiratory effort ABDOMEN: soft, non-tender and no masses PELVIC: deferred BIMANUAL: deferred NEURO: alert and oriented x3,exam grossly non-focal EXTREMITIES: normal 06/10/21: US OB TV Single living IUP, EGA 6w1d Serum quant hCG 13,185 06/16/21: US OB TV Single IUP, slightly irregular shape, mean sac diameter 1.4cm, EGA 6w1d. No FHT detected. Impression: Findings compatible with failed Serum hcg 13,002 ASSESSMENT AND PLAN: 1. Missed - ICD9: 632, ICD10: O02.1 - OBSTETRIC ULTRASOUND WHI - Reviewed with patient missed and nonviable . Reviewed management options for missed . Type and screen A positive Early failure was discussed with the patient. She was counseled regarding expectant, medical and surgical management options. Risks and benefits of each were discussed. Patient would like DANNM. Will get formal US tomorrow and follow up with physician after visit to discuss. Bleeding precautions reviewed and when to call. Emotional support provided. PRIYANK Hardin APRN.CNM 06/17/2021 4:49 PM Addendum MISCARRIAGE A miscarriage, also called spontaneous , is the spontaneous ending of a before the fetus is mature enough to survive outside the uterus. About one-third of all pregnancies end in miscarriage, most often before a woman misses a menstrual period or even knows she is . A miscarriage is most likely to occur within the first three months of , before 20 weeks gestation. Only one percent of miscarriages occur after 20 weeks gestation; these are termed late miscarriages. What are the symptoms of a miscarriage? Symptoms of a miscarriage include: Bleeding which progresses from light to heavy Cramps Abdominal pain Fever Weakness Vomiting Back pain If you are experiencing the symptoms listed above, contact your obstetric health care provider right away. He or she will tell you to come in to the office or go to the emergency room. What causes miscarriage? About half of all miscarriages that occur in the first trimester are caused by chromosomal abnormalities, which may be hereditary or spontaneous, in the father?s sperm or the mother?s egg. Chromosomes are tiny structures inside the cells of the body which carry many genes, the basic units of heredity. Genes determine all o (more content not included)... Normal [facility] CBC W/Diff, Automatedon 05-22 SMEAR COMMENT SCANNED Normal [facility] Comment on above: Result Comment: AUTO DIFF OK Performed By: #### L 700.8000, L100.0100 #### [facility] [place], [address] [facility] 06-16-[address] [facility] Telephone (OBGYWM) -- BERNARDINONAV PINEDA ([id number]) 1990 F Date Time Provider Department 06/16/21 SANDY ACKERMAN OBKENANWJesus During your visit today, we recorded the following information about you: Sandy Ackerman APRN.CNM 06/16/2021 9:19 PM Signed Patient seen at [facility] ED for vaginal bleeding with cramping. Having to change her pad every couple of hours. No dizziness, lightheadedness or headaches. Spoke with ED physician that reported HCG level on 06/10/21 was 13,185 and today 13,002. Pelvic ultrasound showed IUP measuring at 6w1d with no cardiac activity. Patient sent home with bleeding precautions and to follow up in office on Thursday. Blood type is A +. Please call patient and assist with scheduling appointment either virtually or in office to speak with a provider regarding next steps. Thank You. PRIYANK Emerson APRN.CNM 06/17/2021 10:09 AM Signed Was she seen in ED on 06/10/21? Or when was she there? Thank you, PRIYANK Hardin RN 06/17/2021 10:27 AM Signed Patient was in ER both 06/10/21 and yesterday. Alicia Lynn RN 06/17/2021 10:31 AM Signed Patient called per 's recommendation to speak with a provider regarding next steps. States she is needing to change her pad every 2-4 hours. Where can patient be added to your day? Thank you. Jamaica Boyce APRN.CNM 06/17/2021 1:35 PM Signed Can I please get records from ED. I can see her at 3pm if that is ok. If she is stable, we can do a virtual and see her end of week for visit and ultrasound. Let me know what she wants Thank you, Nabila Boyce APRN.CNM Alicia Dubose RN 06/17/2021 1:57 PM Signed Patient notified and prefers in office today. Appointment scheduled. Will print ER records. Alicia Dubose RN Allergies As of Date: 06/16/2021 Noted Allergy Reaction AMOXICILLIN 06/24/2016 5 - Intolerance Date Reviewed: 06/24/2016 Reviewed by: Fawad Gardiner - Fully Assessed Reason for Visit: Patient Update [1234] Problem List As Of Date 06/16/2021 Noted Resolved Myopia [H52.10] 06/24/2016 Regular astigmatism [H52.229] 06/24/2016 Encounter Status:Closed by ALICIA DUBOSE RN on 06/17/21 Normal [facility] Emergency Department Summary on 06-16-2021 Emergency Department Summary [facility] Medical Records Department [address] [place] [id number] Emergency Department Summary 06/16/21 MR#: [id number] Acct: [id number] Name: NAV ROSS Rep #: [id number] : 1990 30 From: Delvis Segura MD PCP: JO Torres Status:REG ER Location: ED HPI HPI - Female History of Present Illness Chief Complaint: Vag Bld, Preg Narrative Narrative: Patient is a G4, P2 female at approximately 7 weeks gestation who presents with vaginal bleeding. She states she was seen in the emergency department on Thursday, approximately 7 days ago, where an ultrasound was performed because she was having pelvic cramping. That resolved. She denies any vaginal cramping or pelvic pain. No fevers or chills. No chest pain or lightheadedness. She states that she started bleeding more heavily this morning to the point where she had to wear a pad. She has changed the pad every few hours. It is city driver than her normal menstrual flow. She called her blacksmith assistant and was told to come to the emergency department for another ultrasound. She is unsure of her blood type. [facility] Medical History Anemia Knee pain Home Medications prenat.vits,daniel,min-iron-f olic 1 tab PO DAILY 02/21/19 [History Last Taken 08/18/19 09:00 1 tab] sertraline [Zoloft] 50 mg PO DAILY 06/10/21 [History Last Taken Unknown] Allergy/AdvReac Type Severity Reaction Status Date / Time amoxicillin Allergy Severe Swelling Verified 06/16/21 16:32 Social History Smoking Status: Never smoker alcohol intake: never ROS ROS ED ROS Narrative Constitutional: No fever, no chills. HEENT: No sore throat. No neck pain. No loss of vision. No rhinorrhea. Cardiovascular: No chest pain. No palpitations. No pedal edema. Respiratory: No cough, no shortness of breath. Abdominal: No abdominal pain. No nausea. No vomiting. Genitourinary: No dysuria. No hematuria. Positive vaginal bleeding, 1 pad every few hours. No pelvic cramping or pelvic pain. Musculoskeletal: No myalgias. No arthralgias. Neurologic: No headaches. No dizziness. No lightheadedness. Skin: No rash. No change in color. Psychiatric: No depression. No anxiety. EXAM Physical Exam Narrative Exam Narrative: Afebrile. Vital signs noted. HEENT: Normocephalic. Atraumatic. PERRL, EOMI. Neck soft and supple. No point tenderness or step off. Cardiovascular: Regular rate and rhythm. No murmurs, rubs, or gallops appreciated. Respiratory: No tachypnea. Lungs clear to auscultation bilaterally. Gastrointestinal: Abdomen soft, nontender, with normoactive bowel sounds. No rebound or guarding. Neurological: Awake. Alert. Nonfocal, nonlateralizing. Skin: No rash. Normal color. No pallor. Musculoskeletal: No pedal edema. Full range of motion extremities. Const Vital Signs: 06/16/21 16:32 Temperature 97.6 F L Temperature Source Temporal Pulse Rate 77 Respiratory Rate 15 Blood Pressure 125/87 H Blood Pressure Mean 99 Pulse Ox 100 Oxygen Delivery Method Room Air MDM MDM MDM Narrative Medical decision making narrative: Chaperoned pelvic exam will be performed. CBC was obtained and she has a normal hemoglobin of 12.0. RN ordered quantitative beta hCG which is pending. I reviewed her prior records and she has A positive as her blood type. Pelvic ultrasound has been ordered. Her postulant pelvic examination did not show any pooling of blood in the vaginal vault. Os was closed on examination. Her hemoglobin is normal at 12.0. However, previously on Thursday with her prior visit her beta quantitative measurement was approximately 13,180. Today, it is only 13,002. Her obstetric ultrasound shows findings compatible with failed as there is no heart rate noted/no activity. Her gestational sac is irregularly shaped, and sized at 6 weeks 1 day. I then discussed patient with Sandy, the blacksmith assistant. It was felt that the patient can be discharged home and they will contact her tomorrow to be seen in the office. She is to return to the emergency department with bleeding of a pad front to back within 1 hour. Disposition is discharged home in stable condition. Lab Data Attestation: I reviewed the patient's lab results. Labs: Laboratory Results - last 24 hr 06/16/21 06/16/21 17:02 17:02 WBC 6.7 RBC 4.04 L Hgb 12.0 Hct 35.7 L MCV 88.4 MCH 29.7 MCHC 33.6 RDW Std Deviation 42.1 RDW Coeff of Dk 13.0 Plt Count 371 MPV 9.6 Immature Gran % (Auto) 1.000 H Neut % (Auto) 52.8 Lymph % (Auto) 32.9 Hamlin % (Auto) 10.0 Eos % (Auto) 3.0 Baso % (Auto) 0.3 Absolute Neuts (auto) 3.5 Absolute Lymphs (auto) 2.21 Nucleated RBC % 0 Differential Comment SCANNED (more content not included)... Normal [facility] Transvaginal w/Preg USon Transvaginal w/Preg [facility] [address] [place] [address] Transvaginal w/Preg MR#: [id number] Acct: [id number] Name: NAV ROSS Rep #: [id number] : 1990 F 30 From: Valeriy hall MD PCP: JO Torres Status: REG ER Study: Transvaginal w/Preg US Date of Exam: 06/16/21 Exam# [id number] Ordering Dr: Checo Walker MD INDICATION: bleeding WITH -- HCG 756 ON 05/31/21, HCG- [address] TODAY -- PREVIOUS US 06/10/21 EXAMINATION: US OB Transvaginal TECHNIQUE: Transabdominal pelvic ultrasound was performed. Grayscale, spectral waveform, and color flow Doppler evaluation of the adnexa. COMPARISON: 06/10/2021. FINDINGS: UTERUS: Measures 9.1 x 7.2 x 5.2 cm. RIGHT OVARY: Measures 4.1 x 2 x 1.7 cm. Normal. LEFT OVARY: Measures 3.6 x 2.1 x 1.8 cm. Normal. FREE FLUID: None. INTRAUTERINE GESTATIONAL SAC(s) (size/shape): Single. Slightly irregular shape. Mean sac diameter 1.4 cm. YOLK SAC: Identified POLE: Identified CRL 0.3 cm. ESTIMATED GESTATION AGE: 6 weeks 1 day. HEART MOTION: not detected PLACENTA: Not visualized due to age. SUBCHORIONIC HEMORRHAGE: None. AMNIOTIC FLUID: Qualitatively normal. US/Transvaginal w/Preg US IMPRESSION: Findings compatible with failed . Electronically Signed: Valeriy Horta MD at 20:08 EST , CC: JO Steward; Dr. Checo Walker MD Agency Sales Management Assistant: Signed Normal [facility] hCG Titer Quant., Serumon HCG QUANT. 80462 mIU/mL High 1-3 [facility] Comment on above: Result Comment: hCG levels with Gestational Age Gestational Age hCG mIU/mL (IU/L) 0.2 - 1 week 5 - 50 1-2 weeks 50 - 500 2-3 weeks 100 - 5000 3-4 weeks 500 - 97779 4-5 weeks 1000 - 84941 5-6 weeks 34186 - 100,000 6-8 weeks 73530 - 200,000 2-3 months 86398 - 100,000 Performed By: #### L 700.8000, L100.0100 #### [facility] [address] [place], [address] Basic Metabolic Profile (BMP )on 06-10-2021 BUN/CRE 8.4 RATIO Low 10-20 [facility] Comment on above: Performed By: #### L 100.0100, L500.2500, L500.3400, L700.8000 #### [facility] [address] [place], [address] CA,Total 9.8 mg/dL Normal 8.5-10.1 [facility] Comment on above: Performed By: #### L 100.0100, L500.2500, L500.3400, L700.8000 #### [facility] [address] [place], [address] Chloride [Moles/Vol] 104 mmol/L Normal 98-107 [facility] Comment on above: Performed By: #### L 100.0100, L500.2500, L500.3400, L700.8000 #### [facility] [address] [place], [address] CO2 [Moles/Vol] 25.0 mmol/L Normal 21.0-32.0 [facility] Comment on above: Performed By: #### L 100.0100, L500.2500, L500.3400, L700.8000 #### [facility] [address] [place], [address] Creatinine [Mass/Vol] 0.71 mg/dL Normal 0.55-1.02 [facility] Comment on above: Result Comment: The validity of the calculated GFR GFRAA in patients over 70 years has not been determined. Clinical correlation is essential. Performed By: #### L 100.0100, L500.2500, L500.3400, L700.8000 #### [facility] [address] [place], [address] ECRCL 93.30 ml/min Normal [facility] Comment on above: Performed By: #### L 100.0100, L500.2500, L500.3400, L700.8000 #### [facility] [address] [place], [address] EST GFR - AA 125 mL/min Normal >60 [facility] Comment on above: Result Comment: Afri can Cameroonian GFR Calc Performed By: #### L 100.0100, L500.2500, L500.3400, L700.8000 #### [facility] [address] [place], [address] GAP 6 Normal 5-15 [facility] Comment on above: Performed By: #### L 100.0100, L500.2500, L500.3400, L700.8000 #### [facility] [address] [place], [address] GFR/1.73 sq M.predicted among non-blacks MDRD (S/P/Bld) [Vol rate/Area] 103 mL/min/{1.73_m2} Normal >60 [facility] Comment on above: Result Comment: Non- GFR Calc Performed By: #### L 100.0100, L500.2500, L500.3400, L700.8000 #### [facility] [address] [place], [address] Glucose [Mass/Vol] 95 mg/dL Normal 74-106 [facility] Comment on above: Performed By: #### L 100.0100, L500.2500, L500.3400, L700.8000 #### [facility] [address] [place], [address] Potassium [Moles/Vol] 3.4 mmol/L Low 3.5-5.1 [facility] Comment on above: Performed By: #### L 100.0100, L500.2500, L500.3400, L700.8000 #### [facility] [address] [place], [address] Sodium [Moles/Vol] 135 mmol/L Low 136-145 [facility] Comment on above: Performed By: #### L 100.0100, L500.2500, L500.3400, L700.8000 #### [facility] [address] [place], [address] Urea nitrogen [Mass/Vol] 6 mg/dL Low 7-18 [facility] Comment on above: Performed By: #### L 100.0100, L500.2500, L500.3400, L700.8000 #### [facility] [address] [place], [address] CBC W/Diff, Automatedon 02-2 Absolute Lymph 1.13 X10 3/uL Normal 0.83-4.51 [facility] Comment on above: Performed By: #### L 100.0100, L500.2500, L500.3400, L700.8000 #### [facility] [address] [place], [address] Absolute Neut 7.1 X10 3/uL Normal 2.0-7.7 [facility] Comment on above: Performed By: #### L 100.0100, L500.2500, L500.3400, L700.8000 #### [facility] [address] [place], [address] Basophils/100 WBC (Bld) 0.3 % Normal 0-1 [facility] Comment on above: Performed By: #### L 100.0100, L500.2500, L500.3400, L700.8000 #### [facility] [address] [place], [address] Eosinophils/100 WBC (Bld) 0.2 % Normal 0-5 [facility] Comment on above: Performed By: #### L 100.0100, L500.2500, L500.3400, L700.8000 #### [facility] [address] [place], [address] Erythrocyte distribution width (RBC) [Ratio] 12.6 % Normal 11.6-14.6 [facility] Comment on above: Performed By: #### L 100.0100, L500.2500, L500.3400, L700.8000 #### [facility] [address] [place], [address] Hematocrit (Bld) [Volume fraction] 40.2 % Normal 37-47 [facility] Comment on above: Performed By: #### L 100.0100, L500.2500, L500.3400, L700.8000 #### [facility] [address] [place], [address] Hemoglobin (Bld) [Mass/Vol] 13.8 g/dL Normal 12.0-15.0 [facility] Comment on above: Performed By: #### L 100.0100, L500.2500, L500.3400, L700.8000 #### [facility] [address] [place], [address] IG% 0.700 Normal 0.0-0.9 [facility] Comment on above: Result Comment: IG% - Immature Granulocytes (promyelocytes, myelocytes and metamyelocytes) > 1% indicates that a LEFT SHIFT is Present. Performed By: #### L 100.0100, L500.2500, L500.3400, L700.8000 #### [facility] [address] [place], [address] Lymphocytes/100 WBC (Bld) 12.1 % Low 19-41 [facility] Comment on above: Performed By: #### L 100.0100, L500.2500, L500.3400, L700.8000 #### [facility] [address] [place], [address] MCH (RBC) [Entitic mass] 29.8 pg Normal 27.0-32.0 [facility] Comment on above: Performed By: #### L 100.0100, L500.2500, L500.3400, L700.8000 #### [facility] [address] [place], [address] MCHC (RBC) [Mass/Vol] 34.3 g/dL Normal 32-36 [facility] Comment on above: Performed By: #### L 100.0100, L500.2500, L500.3400, L700.8000 #### [facility] [address] [place], [address] MCV (RBC) [Entitic vol] 86.8 fL Normal 81-99 [facility] Comment on above: Performed By: #### L 100.0100, L500.2500, L500.3400, L700.8000 #### [facility] [address] [place], [address] Monocytes/100 WBC (Bld) 10.9 % High 0-10 [facility] Comment on above: Performed By: #### L 100.0100, L500.2500, L500.3400, L700.8000 #### [facility] [address] [place], [address] Neutrophils/100 WBC (Bld) 75.8 % High 47-70 [facility] Comment on above: Performed By: #### L 100.0100, L500.2500, L500.3400, L700.8000 #### [facility] [address] [place], [address] Nucleated RBC (Bld) [#/Vol] 0 10*3/uL Normal 0-5 [facility] Comment on above: Performed By: #### L 100.0100, L500.2500, L500.3400, L700.8000 #### [facility] [address] [place], [address] Platelet mean volume (Bld) [Entitic vol] 10.5 fL Normal 6.2-12.0 [facility] Comment on above: Performed By: #### L 100.0100, L500.2500, L500.3400, L700.8000 #### [facility] [address] [place], [address] Platelets (Bld) [#/Vol] 257 10*3/uL Normal 150-450 [facility] Comment on above: Performed By: #### L 100.0100, L500.2500, L500.3400, L700.8000 #### [facility] [address] [place], [address] RBC (Bld) [#/Vol] 4.63 10*6/uL Normal 4.2-5.4 [facility] Comment on above: Performed By: #### L 100.0100, L500.2500, L500.3400, L700.8000 #### [facility] [address] [place], [address] RDW SD 40.1 fl Normal 35.1-43.9 [facility] Comment on above: Performed By: #### L 100.0100, L500.2500, L500.3400, L700.8000 #### [facility] [address] [place], [address] WBC (Bld) [#/Vol] 9.4 10*3/uL Normal 4.4-11.0 [facility] Comment on above: Performed By: #### L 100.0100, L500.2500, L500.3400, L700.8000 #### [facility] [address] [place], [address] Thomas 06-10-2021 CNPN Telephone (OBGYWM) -- CODYNAV Chey ([id number]) 1990 F Date Time Provider Department 06/10/21 NABILA BOYCE During your visit today, we recorded the following information about you: Fifi Ovalle RN 06/10/2021 11:39 AM Signed Patient is scheduled for NOB with Nabila Boyce tomorrow. She has a PNOB scheduled for 06/20. She is 7w by . Please see if patient has time for PNOB tomorrow at 7 am. I could call her then for telephone visit. Please book her in one of the open slots and just put in notes that I will see her at 7am Jamaica Lynn RN 06/10/2021 11:52 AM Signed Patient called back. States she spoke to a nurse in the office who advised that she go to the ER for bleeding and passing blood clots. Cancelled her NOB visit for tomorrow per patient request. Advised that she call the office with an update. Jamaica Vegas MD 06/10/2021 12:18 PM Signed Noted thanks Allergies As of Date: 06/10/2021 Noted Allergy Reaction AMOXICILLIN 06/24/2016 5 - Intolerance Date Reviewed: 06/24/2016 Reviewed by: Fawad Gardiner - Fully Assessed Reason for Visit: Patient Update [1234] Problem List As Of Date 06/10/2021 Noted Resolved Myopia [H52.10] 06/24/2016 Regular astigmatism [H52.229] 06/24/2016 Encounter Status:Closed by OSBALDO JARA LPN on 06/10/21 [facility] Emergency Department Summary on 06-10-2021 Emergency Department Summary [facility] Medical Records Department [address] [place] [address] Emergency Department Summary 06/10/21 MR#: [id number] Acct: [id number] Name: NAV ROSS Rep #: [id number] : 1990 30 From: Jamaica Canales MD PCP: Nabila Steward BLADDER BLOWER-C Status:DEP ER Location: ED HPI HPI - Female History of Present Illness Chief Complaint: Vag Bld, Preg Informant: patient Pain Pain: Positive for Pelvic Pain Onset: Days Context: Gradual Onset Timing: Waxes and wanes Quality: Positive for Aching and Sharp Location: RLQ Current Severity: Moderate Maximum Severity: Severe Bleeding Issue: Positive for - (Passing blood with urine first 2 days. Yesterday would have small clots when wiping. Unsure if urinary or vaginal.) Associated Symptoms P: 2 Ab: 1 Narrative Narrative: Patient presents for evaluation of vaginal bleeding and cramping. She reports a 3-day history of pelvic pain worse in the right lower quadrant. She states she initially noted some blood when she would urinate. Yesterday she would have blood with wiping and small clots. She believes she is approximately 6 weeks . She has not yet seen her IMCU SPECIALIST for her initial evaluation. Blood type is A-positive. [facility] Medical History Anemia Knee pain Home Medications prenat.vits,daniel,min-iron-f olic 1 tab PO DAILY 02/21/19 [History Last Taken 08/18/19 09:00 1 tab] sertraline [Zoloft] 50 mg PO DAILY 06/10/21 [History Last Taken Unknown] Allergy/AdvReac Type Severity Reaction Status Date / Time amoxicillin Allergy Severe Swelling Verified 06/10/21 10:33 Social History Smoking Status: Never smoker alcohol intake: never ROS ROS ED Constitutional Constitutional ED: Reports chills; Denies fever(s) Eyes Eyes: Denies change in vision ENT ENT ED: Denies sore throat Cardiovascular Cardiovascular: Denies chest pain Respiratory/Chest Respiratory/Chest: Denies cough or dyspnea Gastrointestinal Gastrointestinal: Reports abdominal pain; Denies diarrhea, nausea or vomiting Genitourinary Genitourinary ED: Reports hematuria; Denies dysuria Musculoskeletal Musculoskeletal: Denies back pain Integumentary Denies rash Neurologic Neurologic: Denies headache(s) Allergic/Immunologic Allergic/Immunologic ED: Denies urticaria EXAM Physical Exam Const Vital Signs: 06/10/21 10:34 Temperature 98.6 F Temperature Source Temporal Pulse Rate 88 Respiratory Rate 17 Blood Pressure 134/97 H Blood Pressure Mean 109 Pulse Ox 100 Oxygen Delivery Method Room Air Positive well nourished and well developed General Appearance ED: well developed HEENT Reports moist mucous membranes Eyes PERRL and EOMs intact bilaterally Neck supple Chest Wall inspection of chest normal and palpation of chest normal Resp normal respiratory effort and clear to auscultation bilaterally Cardio regular rate and regular rhythm GI soft to palpation Palpation: tender LLQ, RLQ and RUQ no CVA tenderness Narrative: External exam reveals no blood in the vaginal vault. Extremity normal to inspection Neuro oriented x3 Sensorium / Orientation: alert Psych mental status grossly normal Skin no rashes or lesions noted MDM MDM MDM Narrative Medical decision making narrative: Patient declined anything for pain here. Lab work, urinalysis, pelvic ultrasound obtained. Lab Data Attestation: I reviewed the patient's lab results. Labs: Laboratory Results - last 24 hr 06/10/21 06/10/21 06/10/21 11:01 11:01 11:01 WBC 9.4 RBC 4.63 Hgb 13.8 Hct 40.2 MCV 86.8 MCH 29.8 MCHC 34.3 RDW Std Deviation 40.1 RDW Coeff of Dk 12.6 Plt Count 257 MPV 10.5 Immature Gran % (Auto) 0.700 Neut % (Auto) 75.8 H Lymph % (Auto) 12.1 L [place]lin % (Auto) 10.9 H Eos % (Auto) 0.2 Baso % (Auto) 0.3 Absolute Neuts (auto) 7.1 Absolute Lymphs (auto) 1.13 Nucleated RBC % 0 Sodium 135 L Potassium 3.4 L Chloride 104 Carbon Dioxide 25.0 Anion Gap 6 BUN 6 L Creatinine 0.71 Estim Creat Clear Calc 93.30 Est GFR (MDRD) Af Amer 125 Est GFR (MDRD) Non-Af 103 BUN/Creatinine Ratio 8.4 L Glucose 95 Calcium 9.8 Total Bilirubin 0.70 Direct Bilirubin 0.28 AST 27 ALT 33 Alkaline Phosphatase 99 Total Protein 7.8 Albumin 3.5 Globulin 4.3 H HCG, Quant 46832 H Urine Color Urine Clarity Urine pH Ur Specific Walker Urine Protein Urine Glucose (UA) Urine Ketones Urine Occult Blood Urine Nitrite Urine Bilirubin Urine Urobilinogen Ur Leukocyte Esterase Urine RBC Urine WBC Ur Squamous Ep (more content not included)... Normal [facility] Liver Profileon 06-10-2021 Albumin [Mass/Vol] 3.5 g/dL Normal 3.2-5.0 [facility] Comment on above: Performed By: #### L 700.8000, L100.0100 #### [facility] [address] [place], [address] ALK P 99 U/L Normal 45-117 [facility] Comment on above: Performed By: #### L 700.8000, L100.0100 #### [facility] [address] [place], [address] ALT [Catalytic activity/Vol] 33 U/L Normal 13-56 [facility] Comment on above: Performed By: #### L 700.8000, L100.0100 #### [facility] [address] [place], [address] AST [Catalytic activity/Vol] 27 U/L Normal 15-37 [facility] Comment on above: Performed By: #### L 700.8000, L100.0100 #### [facility] [address] [place], [address] Bilirubin [Mass/Vol] 0.70 mg/dL Normal 0.20-1.00 [facility] Comment on above: Result Comment: For patients on eltrombopag therapy, use of Dimension [place] TBIL is not recommended. Performed By: #### L 700.8000, L100.0100 #### [facility] [address] [place], [address] Bilirubin.direct [Mass/Vol] 0.28 mg/dL Normal 0.00-0.30 [facility] Comment on above: Performed By: #### L 700.8000, L100.0100 #### [facility] [address] [place], [address] Globulin (S) [Mass/Vol] 4.3 g/dL High 2.2-4.2 [facility] Comment on above: Performed By: #### L 700.8000, L100.0100 #### [facility] [address] [place], [address] T PROT 7.8 g/dL Normal 6.4-8.2 [facility] Comment on above: Performed By: #### L 700.8000, L100.0100 #### [facility] [address] [place], [address] Transvaginal w/Preg USon Transvaginal w/Preg US [facility] [address] [place] [address] Transvaginal w/Preg US MR#: [id number] Acct: [id number] Name: NAV ROSS Rep #: [id number] : 1990 F 30 From: Luci walton MD PCP: Nabila Steward BLADDER BLOWER-C Status: REG ER Study: Transvaginal w/Preg US Date of Exam: 06/10/21 Exam# [id number] Ordering Dr: Jamaica Canales MD HISTORY: pain. LMP: Unknown. Beta-hC on 05/31/2021. TECHNIQUE: Transvaginal pelvic ultrasound was performed. # of images incl. paperwork: 117. COMPARISON: None. FINDINGS: UTERUS: 7.8 x 4.7 x 7 cm. RIGHT OVARY: 4.4 x 2.7 x 2.1 cm with vascular flow demonstrated. No adnexal masses. LEFT OVARY: 3.4 x 2.2 x 1.9 cm with vascular flow demonstrated. 1.7 x 2.3 cm complex cyst. FREE FLUID: Minimal. INTRAUTERINE GESTATIONAL SAC: Single. Mean sac diameter 11 mm corresponding to 5 weeks 6 days. YOLK SAC: Present. POLE: CRL 3.7 mm. ESTIMATED GESTATIONAL AGE: 6 weeks 1 day. ESTIMATED DELIVERY DATE: 02/03/2022. HEART MOTION: 114 bpm. SUBCHORIONIC HEMORRHAGE: None demonstrated. US/Transvaginal w/Preg US IMPRESSION: Single living intrauterine gestation with an estimated gestational age of 6 weeks 1 day. 2.3 c m left ovarian corpus luteal cyst. at 1208 Reported and signed by: Luci Vega MD Electronically Signed: Luic Vega MD at 12:07 EST Reading Location ID and State: [facility] / [place] Tel , Service support , CC: JO Steward; Dr. Jamaica Canales MD Agency Sales Management Assistant: Signed Normal [facility] Urinalysis, Completeon 06-10 EPI,SQUAMOUS 0-5 SEEN Normal 5-10 [facility] Comment on above: Order Comment: COLOR OF URINE MAY AFFECT DIPSTICK RESULTS. CLEAN CATCH Performed By: #### L 400.0001 #### [facility] [address] [place], [place], [address] WBC 5-10 SEEN Normal 0-5 [facility] Comment on above: Order Comment: COLOR OF URINE MAY AFFECT DIPSTICK RESULTS. CLEAN CATCH Performed By: #### L 400.0001 #### [facility] [address] [place], [address] BACTERIA 0 SEEN Normal None Seen [facility] Comment on above: Order Comment: COLOR OF URINE MAY AFFECT DIPSTICK RESULTS. CLEAN CATCH Performed By: #### L 400.0001 #### [facility] [address] [place], [address] Mucus Ql (Urine sed) 0 SEEN Normal [facility] Comment on above: Order Comment: COLOR OF URINE MAY AFFECT DIPSTICK RESULTS. CLEAN CATCH Performed By: #### L 400.0001 #### [facility] [address] [place], [place], [address] RBC 0 SEEN Normal 0-5 [facility] Comment on above: Order Comment: COLOR OF URINE MAY AFFECT DIPSTICK RESULTS. CLEAN CATCH Performed By: #### L 400.0001 #### [facility] [address] [place], [place], [address] hCG Titer Quant., Serumon HCG QUANT. 89251 mIU/mL [facility] [address] Comment on above: Result Comment: hCG levels with Gestational Age Gestational Age hCG mIU/mL (IU/L) 0.2 - 1 week 5 - 50 1-2 weeks 50 - 500 2-3 weeks 100 - 5000 3-4 weeks 500 - 31940 4-5 weeks 1000 - 69123 5-6 weeks 40324 - 100,000 6-8 weeks 74876 - 200,000 2-3 months 99767 - 100,000 Performed By: #### L 700.8000, L100.0100 #### [facility] [address] [place], [place], [address] hCG Titer Quant., Serumon HCG QUANT. 766 mIU/mL [address] Comment on above: Result Comment: hCG levels with Gestational Age Gestational Age hCG mIU/mL (IU/L) 0.2 - 1 week 5 - 50 1-2 weeks 50 - 500 2-3 weeks 100 - 5000 3-4 weeks 500 - 85176 4-5 weeks 1000 - 86794 5-6 weeks 01484 - 100,000 6-8 weeks 11247 - 200,000 2-3 months 13710 - 100,000 Performed By: #### L 700.8000 #### [facility] [address] [place], [place], [address] [id number] -- NAV ROSS ([id number]) 1990 F Date Time Provider Department 05/30/21 JIRA DEVELOPER [id number] During your visit today, we recorded the following information about you: Jamaica Mckeon RN 05/30/2021 8:58 AM Signed ----- Message from Paty Sosa sent at 05/30/2021 8:35 AM EST ----- Regarding: KIDNEY FAILURE/PRE-ECLAMPSIA Patient has been identified by name and Date of : Yes Patient: Nav Ross Date of : 1990 Provider for this encounter : NONE Reason for call: LMP 04/22/2021 Was an appointment scheduled: No Reason for requesting visit (RFV/signs and symptoms/diagnosis) : KIDNEY FAILURE AND PRE-ECLAMPSIA WITH PREVIOUS ALSO DELIVERED 10 WEEKS EARLY Person calling: self Return call to: self Call patient at: on cell [phone] (home) [phone] (cell) Payor: [place] [employer] / Plan: [place]ICA[place] / Product Type: Medicaid / Paty Mckeon RN 05/30/2021 9:02 AM Signed Call placed to patient to triage for new OB appt. No LMP. Her IUD fell out on04/22 with spotting a few days after but not like a normal period. + HPT 2 days ago. Yet to start a PNV, will go purchase one today. + cats in the home and patient aware of litter box precautions. Denies pelvic pain aside from mild cramping, denies vaginal bleeding - precautions for both discussed. Hx of pre-e and kidney failure in a previous . Patient aware she can start with a general OB and will be consulted to [facility] later if needed. Patient receptive, would like to establish care at the [facility] office. Routing to [facility] schedulers. Jamaica Lynn RN 05/30/2021 9:38 AM Signed See below. New I. Do you want patient to have dating ultrasound prior to having NOB? Please advise and then we will call patient to schedule. Jamaica Ackerman APRN.CNM 05/30/2021 11:25 AM Signed She is ok to schedule PNOB and NOB. We will do ultrasound at that time! Thank you. PRIYANK Emerson RN 05/30/2021 1:36 PM Signed Called and spoke with patient. PNOB and NOB scheduled. . She will request her records. Our office fax number provided. Jamaica Lynn RN Allergies As of Date: 05/30/2021 Noted Allergy Reaction AMOXICILLIN 06/24/2016 5 - Intolerance Date Reviewed: 06/24/2016 Reviewed by: Fawad Gardiner - Fully Assessed Reason for Visit: Care Coordination [3496] Cmt: OB Navigator pool Problem List As Of Date 05/30/2021 Noted Resolved Myopia [H52.10] 06/24/2016 Regular astigmatism [H52.229] 06/24/2016 Encounter Status:Closed by SANDY ACKERMAN on 05/30/21 Normal [facility] Platelet Counton 08-21-2019 Platelets (Bld) [#/Vol] 206 10*3/uL Normal 140-440 [facility] Comment on above: Performed By: #### H ИРИНА ALATORRE3 #### [address] [address] Platelet counton 08-21-2019 Platelets (Bld) [#/Vol] 206 10*3/uL 140 - 440 10*3/uL [facility] Performed by [facility], [address] [place] [address] [facility] [employer] CBCon 08-20-2019 Erythrocyte distribution width (RBC) [Ratio] 15.0 % High 11.5 - 14.5 % [facility] [employer] Hematocrit (Bld) [Volume fraction] 30.8 % Low 35 - 47 % [facility] Hemoglobin (Bld) [Mass/Vol] 10.5 g/dL Low 11.7 - 16 g/dL [place], [place] Interpretation and review of laboratory results Abnormal [place] MCH (RBC) [Entitic mass] 31.3 pg 26 - 34 pg [place] MCHC (RBC) [Mass/Vol] 34.0 % 32 - 36 % [place] MCV (RBC) [Entitic vol] 92.0 fL 79 - 98 fL [place] Platelet mean volume (Bld) [Entitic vol] 9.9 fL 7.4 - 10.4 fL [place] Platelets (Bld) [#/Vol] 190 10*3/uL 140 - 440 10*3/uL [place] RBC (Bld) [#/Vol] 3.35 10*6/uL Low 3.8 - 5.2 10*6/uL [place] WBC (Bld) [#/Vol] 13.9 10*3/uL High 3.6 - 10.7 10*3/uL [place], [place] Test Performed by [facility], [address], [place] [address] [place] [address] CULTURE URINEon 08-20-2019 CULTURE URINE CULTURE URINE --> St atus: F Normal urogenital jerry present. Normal [facility] Comment on above: Order Comment: Speci men Source Comment:Urine, clean catch Performed By: #### C /UR #### [facility] [address], [place] Comp Metabolic Panelon 08-19 ALP [Catalytic activity/Vol] 120 U/L Normal 38-126 [facility] Comment on above: Performed By: #### H ИРИНА ALATORRE3 #### [facility] [address], [place] ALT [Catalytic activity/Vol] 16 U/L Normal 0-34 [facility] Comment on above: Result Comment: The ALT test is performed by an updated assay method. Please note that the reference intervals have been changed and are now sex specific. Performed By: #### H LANDRY CMP3 #### [facility] [address], [place] AST [Catalytic activity/Vol] 20 U/L Normal 15-46 [facility] Comment on above: Performed By: #### H EMOG CMP3 #### [facility] [address], [place] Calcium [Mass/Vol] 10.9 mg/dL High 8.4-10.4 [facility] Comment on above: Performed By: #### H EMOG CMP3 #### [facility] [address], [place] Glucose [Mass/Vol] 118 mg/dL High 70-100 [facility] Comment on above: Performed By: #### H EMOG CMP3 #### [facility] [address], [place] Protein [Mass/Vol] 6.5 g/dL Normal 6.3-8.2 [facility] Comment on above: Performed By: #### H EMOG CMP3 #### [place] [address], [place] Urea nitrogen [Mass/Vol] 18 mg/dL Normal 7-20 [facility] Comment on above: Performed By: #### H EMOG CMP3 #### [facility] [address], [place] Anion gap [Moles/Vol] 8 Normal [facility] Comment on above: Performed By: #### H EMOG, CMP3 #### [facility] [address], [place] Bilirubin [Mass/Vol] 0.2 mg/dL Normal 0.2-1.3 [facility] Comment on above: Performed By: #### H EMOG, CMP3 #### [facility] [address], [place] CO2 [Moles/Vol] 18 mmol/L Low 22-30 [facility] Comment on above: Performed By: #### H EMOG, CMP3 #### [facility] [address], [place] Creatinine [Mass/Vol] 0.46 mg/dL Low 0.52-1.25 [facility] Comment on above: Performed By: #### H EMOG, CMP3 #### [facility] [place] [employer] [facility] [address] [place] [address] GFR/1.73 sq M predicted among blacks MDRD (S/P/Bld) [Vol rate/Area] mL/min/{1.73_m2} Normal >60 [facility] Comment on above: Performed By: #### Roel ALATORRE CMP3 #### [facility] [employer] [facility] [address] [place] [address] GFR/1.73 sq M predicted among non-blacks MDRD (S/P/Bld) [Vol rate/Area] mL/min/{1.73_m2} Normal >60 [facility] Comment on above: Result Comment: Sour ce- MDRD equation with creatinine calibration to IDMS(NKDEP) eGFR not recommended for drug dose adjustment Performed By: #### H LANDRY CMP3 #### [facility] [address] [place] [address] Potassium [Moles/Vol] 4.2 mmol/L Normal 3.5-5.1 [facility] Comment on above: Performed By: #### H LANDRY CMP3 #### [place] [address], [place] Sodium [Moles/Vol] 134 mmol/L Low 135-145 [facility] Comment on above: Performed By: #### H LANDRY CMP3 #### [facility] [address] [place] [address] Albumin [Mass/Vol] 3.3 g/dL Low 3.5-5.0 [facility] Comment on above: Performed By: #### H LANDRY CMP3 #### [facility] [address] [place] [address] Chloride [Moles/Vol] 108 mmol/L High 98-107 [facility] Comment on above: Performed By: #### H LANDRY CMP3 #### [facility] [address] [place] [address] Comprehensive Metabolic Pane darrius 08-20-2019 Albumin [Mass/Vol] 3.3 g/dL Low 3.5 - 5 g/dL [place], [place] ALP [Catalytic activity/Vol] 120 U/L 38 - 126 U/L [place], [place] ALT [Catalytic activity/Vol] 16 U/L 0 - 34 U/L [place] Comment on above: The ALT test is perf ormed by an updated assay method. Please note that the reference intervals have been changed and are now sex specific. Anion gap [Moles/Vol] 8 mmol/L [place], [place] AST [Catalytic activity/Vol] 20 U/L 15 - 46 U/L [place] Bilirubin Ql (U) 0.2 mg/dL 0.2 - 1.3 mg/dL [place] Calcium [Mass/Vol] 10.9 mg/dL High 8.4 - 10. 4 mg/dL [place] Chloride [Moles/Vol] 108 mmol/L High 98 - 10 7 mmol/L [place] CO2 [Moles/Vol] 18 mmol/L Low 22 - 30 mmol/L [place] Creatinine [Mass/Vol] 0.46 mg/dL Low 0.52 - 1.25 mg/dL [place], [place] EGFR IF NonAfrican Cameroonian >60.0 >60 mL/min [place], [place] Comment on above: Source- MDRD equatio n with creatinine calibration to IDMS(NKDEP) eGFR not recommended for drug dose adjustment GFR/1.73 sq M predicted among blacks MDRD (S/P/Bld) [Vol rate/Area] mL/min/{1.73_m2} >60 mL/min [place], [place] Glucose [Mass/Vol] 118 mg/dL High 70 - 100 mg/dL [place], [place] Interpretation and review of laboratory results Abnormal [place], [place] Potassium [Moles/Vol] 4.2 mmol/L 3.5 - 5.1 mmol/L [place], [place] Protein [Mass/Vol] 6.5 g/dL 6.3 - 8.2 g/dL [place], [place] Sodium [Moles/Vol] 134 mmol/L Low 135 - 145 mmol/L [place], [place] Urea nitrogen [Mass/Vol] 18 mg/dL 7 - 20 mg/dL [facility], [place] Test Performed by [facility], [address] [place] [address] [facility], [place] Glucose,Bedsideon 08-20-2019 Glucose [Mass/Vol] 104 mg/dL High 70-100 [facility] Comment on above: Result Comment: Test performed by glucose meter. Results may be 10%-15% lower than serum/plasma values. (CLIA ID [id number]) Performed By: #### H EMOG, CMP3 #### [facility] [address] [place] [address] Glucose [Mass/Vol] 133 mg/dL High 70-100 [facility] Comment on above: Result Comment: Test performed by glucose meter. Results may be 10%-15% lower than serum/plasma values. (CLIA ID [id number]) Performed By: #### B GLU #### [facility] [address] [place] [address] Glucose [Mass/Vol] 105 mg/dL High 70-100 [facility] Comment on above: Result Comment: Test performed by glucose meter. Results may be 10%-15% lower than serum/plasma values. (CLIA ID [id number]) Performed By: #### B GLU #### [facility] [address] [place] [address] Group B Strep Screen PCRon 0 08-20-2019 Group B Strep Screen PCR Group B Strep Screen PCR --> Status: F NEGATIVE Expected Result: Negative CDC guidelines for prevention of Group B Strep disease recommends collection of both vaginal and rectal specimens for optimal recovery of GBS. Methodology - Real Time PCR (Cepheid) Expected Result: Negative CDC guidelines for prevention of Group B Strep disease recommends collection of both vaginal and rectal specimens for optimal recovery of GBS. Methodology - Real Time PCR (Cepheid) Normal [facility] Comment on above: Order Comment: Speci men Source Comment:Vaginal-Perirectal Performed By: #### G BSPC #### [facility] [address] [place] [address] Group B Strep, PCRon 020 Group B Strep Screen PCR NEGATIVE Expected Result: Negative CDC guidelines for prevention of Group B Strep disease recommends collection of both vaginal and rectal specimens for optimal recovery of GBS. Methodology - Real Time PCR (Tripwolfid) [place], [place] Test Performed by [facility], [address] [place] [address] Specimen Source Comment:Vaginal-Perirectal [facility] [place] Hemogramon 08-20-2019 Erythrocyte distribution width (RBC) [Ratio] 15.0 % High 11.5-14.5 [facility] Comment on above: Performed By: #### H EMOG CMP3 #### [address] Hematocrit (Bld) [Volume fraction] 30.8 % Low 35.0-47.0 [facility] Comment on above: Performed By: #### H EMOG CMP3 #### [address] Hemoglobin (Bld) [Mass/Vol] 10.5 g/dL Low 11.7-16.0 [facility] Comment on above: Performed By: #### H EMOG CMP3 #### [address] MCH (RBC) [Entitic mass] 31.3 pg Normal 26.0-34.0 [facility] Comment on above: Performed By: #### H EMOG CMP3 #### [address] MCHC (RBC) [Mass/Vol] 34.0 % Normal 32.0-36.0 [facility] Comment on above: Performed By: #### H EMOG CMP3 #### [address] MCV (RBC) [Entitic vol] 92.0 fL Normal 79.0-98.0 [facility] Comment on above: Performed By: #### H EMOG, CMP3 #### [address] Platelet mean volume (Bld) [Entitic vol] 9.9 fL Normal 7.4-10.4 [facility] Comment on above: Performed By: #### H EMOG, CMP3 #### [facility] [place] [employer] [facility] [address], [place] Platelets (Bld) [#/Vol] 190 10*3/uL Normal 140-440 [facility] Comment on above: Performed By: #### H EMOG, CMP3 #### [facility] [employer] [facility] [address], [place] RBC (Bld) [#/Vol] 3.35 10*6/uL Low 3.80-5.20 [facility] Comment on above: Performed By: #### H EMOG, CMP3 #### [facility] [employer] [facility] [address], [place] WBC (Bld) [#/Vol] 13.9 10*3/uL High 3.6-10.7 [facility] Comment on above: Performed By: #### H EMOG, CMP3 #### [facility] [employer] [facility] [address], [place] POCT Glucoseon 08-20-2019 Glucose [Mass/Vol] 104 mg/dL High 70 - 100 mg/dL [place], [place] Comment on above: Test performed by gl ucose meter. Results may be 10%-15% lower than serum/plasma values. (CLIA ID [id number]) Interpretation and review of laboratory results Abnormal [facility] [employer]- [place], [place] Test Performed by [facility], [facility] [place] [address] [place], [place] Glucose [Mass/Vol] 133 mg/dL High 70 - 100 mg/dL [place], [place] Comment on above: Test performed by gl ucose meter. Results may be 10%-15% lower than serum/plasma values. (CLIA ID [id number]) Interpretation and review of laboratory results Abnormal [facility] [employer]- [place], [place] Test Performed by [facility], [facility] [place] [address] [facility], [place] Glucose [Mass/Vol] 105 mg/dL High 70 - 100 mg/dL [place], [place] Comment on above: Test performed by gl ucose meter. Results may be 10%-15% lower than serum/plasma values. (CLIA ID [id number]) Interpretation and review of laboratory results Abnormal [place], [place] Test Performed by [facility], [place] [address] [place], [place] CBCon 08-19-2019 Erythrocyte distribution width (RBC) [Ratio] 14.5 % 11.5 - 14.5 % [place] Hematocrit (Bld) [Volume fraction] 32.8 % Low 35 - 47 % [place] Hemoglobin (Bld) [Mass/Vol] 11.1 g/dL Low 11.7 - 16 g/dL [place] Interpretation and review of laboratory results Abnormal [place] MCH (RBC) [Entitic mass] 30.6 pg 26 - 34 pg [place] MCHC (RBC) [Mass/Vol] 33.8 % 32 - 36 % [place] MCV (RBC) [Entitic vol] 90.4 fL 79 - 98 fL [place], [place] Platelet mean volume (Bld) [Entitic vol] 9.9 fL 7.4 - 10.4 fL [place] Platelets (Bld) [#/Vol] 229 10*3/uL 140 - 440 10*3/uL [place] RBC (Bld) [#/Vol] 3.63 10*6/uL Low 3.8 - 5.2 10*6/uL [place] WBC (Bld) [#/Vol] 16.3 10*3/uL High 3.6 - 10.7 10*3/uL [place] Test Performed by [facility], [place] [address] [place], [place] Comp Metabolic Panelon 08-18 ALP [Catalytic activity/Vol] 145 U/L High 38-126 [facility] Comment on above: Performed By: #### H ИРИНА ALATORRE3 #### [facility] [address] [place] [address] ALT [Catalytic activity/Vol] 15 U/L Normal 0-34 [facility] Comment on above: Result Comment: The ALT test is performed by an updated assay method. Please note that the reference intervals have been changed and are now sex specific. Performed By: #### Roel ALATORRE CMP3 #### [facility] [address], [place] Anion gap [Moles/Vol] 8 Normal [facility] Comment on above: Performed By: #### H LANDRY CMP3 #### [facility] [address], [place] AST [Catalytic activity/Vol] 21 U/L Normal 15-46 [facility] Comment on above: Performed By: #### H ИРИНА ALATORRE3 #### [facility] [address], [place] Calcium [Mass/Vol] 9.4 mg/dL Normal 8.4-10.4 [facility] Comment on above: Performed By: #### Roel ALATORRE CMP3 #### [facility] [address], [place] CO2 [Moles/Vol] 17 mmol/L Low 22-30 [facility] Comment on above: Performed By: #### H LANDRY CMP3 #### [facility] [address], [place] Glucose [Mass/Vol] 110 mg/dL High 70-100 [facility] Comment on above: Performed By: #### H LANDRY CMP3 #### [facility] [address], [place] Protein [Mass/Vol] 7.1 g/dL Normal 6.3-8.2 [facility] Comment on above: Performed By: #### H LANDRY CMP3 #### [place] [address], [place] Urea nitrogen [Mass/Vol] 11 mg/dL Normal 7-20 [facility] Comment on above: Performed By: #### H LANDRY CMP3 #### [place] [address], [place] Bilirubin [Mass/Vol] 0.3 mg/dL Normal 0.2-1.3 [facility] Comment on above: Performed By: #### H LANDRY CMP3 #### [facility] [address], [place] Creatinine [Mass/Vol] 0.44 mg/dL Low 0.52-1.25 [facility] Comment on above: Performed By: #### H LANDRY CMP3 #### [facility] [address], [place] GFR/1.73 sq M predicted among blacks MDRD (S/P/Bld) [Vol rate/Area] mL/min/{1.73_m2} Normal >60 [facility] Comment on above: Performed By: #### H LANDRY CMP3 #### [facility] [address], [place] GFR/1.73 sq M predicted among non-blacks MDRD (S/P/Bld) [Vol rate/Area] mL/min/{1.73_m2} Normal >60 [facility] Comment on above: Result Comment: Sour ce- MDRD equation with creatinine calibration to IDMS(NKDEP) eGFR not recommended for drug dose adjustment Performed By: #### H LANDRY CMP3 #### [facility] [address], [place] Albumin [Mass/Vol] 3.6 g/dL Normal 3.5-5.0 [facility] Comment on above: Performed By: #### H LANDRY CMP3 #### [facility] [address], [place] Potassium [Moles/Vol] 4.3 mmol/L Normal 3.5-5.1 [facility] Comment on above: Performed By: #### H LANDRY CMP3 #### [facility] [address], [place] Sodium [Moles/Vol] 131 mmol/L Low 135-145 [facility] Comment on above: Performed By: #### H LANDRY CMP3 #### [place] [address], [place] Chloride [Moles/Vol] 106 mmol/L Normal 98-107 [facility] Comment on above: Performed By: #### H [facility], CMP3 #### [facility] [address] [place] [address] Comprehensive Metabolic Pane darrius 08-19-2019 Albumin [Mass/Vol] 3.6 g/dL 3.5 - 5 g/dL [place], [place] ALP [Catalytic activity/Vol] 145 U/L High 38 - 126 U/L [place], [place] ALT [Catalytic activity/Vol] 15 U/L 0 - 34 U/L [place] Comment on above: The ALT test is perf ormed by an updated assay method. Please note that the reference intervals have been changed and are now sex specific. Anion gap [Moles/Vol] 8 mmol/L [place], [place] AST [Catalytic activity/Vol] 21 U/L 15 - 46 U/L [place] Bilirubin Ql (U) 0.3 mg/dL 0.2 - 1.3 mg/dL [place] Calcium [Mass/Vol] 9.4 mg/dL 8.4 - 10. 4 mg/dL [place] Chloride [Moles/Vol] 106 mmol/L 98 - 10 7 mmol/L [place] CO2 [Moles/Vol] 17 mmol/L Low 22 - 30 mmol/L [place] Creatinine [Mass/Vol] 0.44 mg/dL Low 0.52 - 1.25 mg/dL [place], [place] EGFR IF NonAfrican Cameroonian >60.0 >60 mL/min [place] Comment on above: Source- MDRD equatio n with creatinine calibration to IDMS(NKDEP) eGFR not recommended for drug dose adjustment GFR/1.73 sq M predicted among blacks MDRD (S/P/Bld) [Vol rate/Area] mL/min/{1.73_m2} >60 mL/min [place] Glucose [Mass/Vol] 110 mg/dL High 70 - 100 mg/dL [place] Interpretation and review of laboratory results Abnormal [place] Potassium [Moles/Vol] 4.3 mmol/L 3.5 - 5.1 mmol/L [place] Protein [Mass/Vol] 7.1 g/dL 6.3 - 8.2 g/dL [place] Sodium [Moles/Vol] 131 mmol/L Low 135 - 145 mmol/L [place] Urea nitrogen [Mass/Vol] 11 mg/dL 7 - 20 mg/dL [place], [place] Test Performed by [facility] [place] [address] [place], [place] Culture, Urineon 08-19-2019 Bacteria identified Cx Nom (U) Normal urogenital jerry present. [place], [place] Test Performed by [facility] [place] [address] Specimen Source Comment:Urine, clean catch [place], [place] Glucose,Bedsideon 08-19-2019 Glucose [Mass/Vol] 138 mg/dL High 70-100 [facility] Comment on above: Result Comment: Test performed by glucose meter. Results may be 10%-15% lower than serum/plasma values. (CLIA ID [id number]) Performed By: #### B GLU #### [place] [address], [place] Hemogramon 08-19-2019 Erythrocyte distribution width (RBC) [Ratio] 14.5 % Normal 11.5-14.5 [facility] Comment on above: Performed By: #### H ИРИНА ALATORRE3 #### [facility] [address], [place] Hematocrit (Bld) [Volume fraction] 32.8 % Low 35.0-47.0 [facility] Comment on above: Performed By: #### H ИРИНА ALATORRE3 #### [facility] [address], [place] Hemoglobin (Bld) [Mass/Vol] 11.1 g/dL Low 11.7-16.0 [facility] Comment on above: Performed By: #### H LANDRY CMP3 #### [facility] [address], [place] MCH (RBC) [Entitic mass] 30.6 pg Normal 26.0-34.0 [facility] Comment on above: Performed By: #### H EMOG, CMP3 #### [facility] [address], [place] MCHC (RBC) [Mass/Vol] 33.8 % Normal 32.0-36.0 [facility] Comment on above: Performed By: #### H EMOG, CMP3 #### [facility] [address], [place] MCV (RBC) [Entitic vol] 90.4 fL Normal 79.0-98.0 [facility] Comment on above: Performed By: #### H EMOG CMP3 #### [place] [address], [place] Platelet mean volume (Bld) [Entitic vol] 9.9 fL Normal 7.4-10.4 [facility] Comment on above: Performed By: #### H EMOG CMP3 #### [place] [address] [place], [place] Platelets (Bld) [#/Vol] 229 10*3/uL Normal 140-440 [facility] Comment on above: Performed By: #### H EMOG CMP3 #### [place] [address], [place] RBC (Bld) [#/Vol] 3.63 10*6/uL Low 3.80-5.20 [facility] Comment on above: Performed By: #### H EMOG, CMP3 #### [place] [address], [place] WBC (Bld) [#/Vol] 16.3 10*3/uL High 3.6-10.7 [facility] Comment on above: Performed By: #### H EMOG, CMP3 #### [place] [address] [place], [place] [facility] US Complete w/ detailon 08-19-2019 [facility] US Complete w/detail Patient Name: NAV ROSS Maternal Medicine Exam Date/Time 08/19/2019 08:31:13 EDT Exam MFM US Complete w/detail Ordering Physician DO ABBOTT SETH Accession Number [id number] Reason For Exam PRE-ECLAMPSIA Report OBSTETRICS REPORT (Signed Final 08/19/2019 09:41 am) Patient Info ID #: [id number] : [birth year] (29 yrs) Name: NAV ROSS Visit Date: 08/19/2019 08:32 am Performed By Performed By: Ruperto Aldana RDMS Referred By: CHRISTINE ABBOTT Attending: Estela Vigil MD Service(s) Provided US Level II complete (Targeted OB) 57751 Indications Preeclampsia Evaluation Num Of Fetuses: 1 Heart 134 Rate(bpm): Cardiac Activity: Regular rhythm Lie: Longitudinal Presentation: Cephalic Placenta: Posterior Amniotic Fluid NONA FV: Within normal limits NONA Sum: 9.7 cm 13 %Tile Larg Pckt: 4.72 cm RUQ: 2.35 cm RLQ: 1.26 cm LUQ: 4.72 cm LLQ: 1.37 cm Biometry -------- BPD: 82.1 mm G. Age: 33w 0d 80 % CI: 75.8 % 70 - 86 OFD: 108.3 mm FL/HC: 19.7 % 19.1 - 21.3 HC: 309.3 mm G. Age: 34w 4d 88 % HC/AC: 1.17 0.96 - 1.17 AC: 264.9 mm G. Age: 30w 4d 22 % FL/BPD: 74.1 % 71 - 87 FL: 60.8 mm G. Age: 31w 4d 38 % FL/AC: 23.0 % 20 - 24 RIGHT FL: 60.8 mm G. Age: 31w 4d 38 % LEFT Est. FW: 1777 gm 3 lb 15 oz 47 % Gestational Age Clinical NAIF: 31w 4d NAIF: 10/17/19 U/S Today: 32w 3d NAIF: 10/11/19 Best: 31w 4d Det. By: Clinical NAIF NAIF: 10/17/19 Anatomy ------- Palate: Normal appearance Targeted Anatomy Central Nervous System Calvarium: Normal appearance Choroid Plexus: Normal appearance Intracranial: Normal appearance Head/Neck Nuchal Fold: Normal appearance Neck: Normal appearance Eyes: Normal appearance Profile: Normal appearance Thorax Thoracic Normal appearance L Outflow Tract: Normal appearance Contour: Lungs: Normal appearance Cardiac Rhythm: Normal appearance Four Chamber: Normal appearance Cardiac Mcalpin: Normal appearance Cardiac Motion: Observed 3 Vessel View: Normal appearance R Outflow Tract: Normal appearance Diaphragm: Normal appearance Abdomen Ventral Wall: Normal appearance Rt Kidney: Normal appearance Stomach: Normal appearance Bladder: Normal appearance Situs: Normal appearance Bowel: Normal appearance Liver: Normal appearance Spleen: Normal appearance Lt Kidney: Normal appearance Extremities Lt Humerus: Present Lt Femur: Normal appearance Rt Humerus: Present Rt Femur: Normal appearance Lt Forearm: Present Lt Lower Leg: Present Rt Forearm: Present Rt Lower Leg: Present Lt Hand: Present Lt Foot: Present Rt Hand: Present Rt Foot: Present Other Umbilical Cord: Normal 3-vessel Genitalia: Normal appearance Masses: Normal appearance Cord Insertion: Normal appearance Impression Waldrop live intrauterine at 31w 4d. Normal growth; EFW 1777 grams, which is at the 47% for this gestational age. The amniotic fluid index is 9.7cm, which is within normal limits. Incidental BPP today is 8/8 Anatomy is extremely limited based upon gestational age Continued IP management Ultrasound is not diagnostic of chromosomal aneuploidy and does not detect all subtle defects. Normal ultrasound findings do not guarantee normal outcomes. Estela Vigil MD Electronically Signed Final Report 08/19/2019 09:41 am Final Dictated: 08/19/2019 8:32 am Dictating Physician: ESTELA ALMAZAN Signed Date and Time: 08/19/2019 9:42 am Signed by: ESTELA ALMAZAN [facility] POCT Glucoseon 08-19-2019 Glucose [Mass/Vol] 138 mg/dL High 70 - 100 mg/dL [place], [place] Comment on above: Test performed by gl ucose meter. Results may be 10%-15% lower than serum/plasma values. (CLIA ID [id number]) Interpretation and review of laboratory results Abnormal [facility] JAMES Test [facility], [address] [place] [address] [facility]2019 TS GEL ABO Group: A Rh, Gel: POS Antibody Screen Gel: NEG Normal [facility] Comment on above: Performed By: #### T SGL #### [address] [place] [address] [facility] US OB DETAIL ANATOMY S RADHA OR FIRST GESTATIONon 08-19-2019 [place], [facility] [place] Incoming Radiology Results From [facility] - 08/19/2019 9:42 AM EDT Patient Name: NAV ROSS ---Maternal Medicine--- Exam Date/Time 08/19/2019 08:31:13 EDT Exam MFM US Complete w/detail Ordering Physician DO ABBOTT SETH Accession Number [id number] Reason For Exam PRE-ECLAMPSIA Report OBSTETRICS REPORT (Signed Final 08/19/2019 09:41 am) Patient Info ID #: [id number] : [birth year] (29 yrs) Name: NAV ROSS Visit Date: 08/19/2019 08:32 am Performed By Performed By: Ruperto Aldana RDMS Referred By: CHRISTINE ABBOTT Attending: Estela Vigil MD Service(s) Provided US Level II complete (Targeted OB) 20735 Indications Preeclampsia Evaluation Num Of Fetuses: 1 Heart 134 Rate(bpm): Cardiac Activity: Regular rhythm Lie: Longitudinal Presentation: Cephalic Placenta: Posterior Amniotic Fluid NONA FV: Within normal limits NONA Sum: 9.7 cm 13 %Tile Larg Pckt: 4.72 cm RUQ: 2.35 cm RLQ: 1.26 cm LUQ: 4.72 cm LLQ: 1.37 cm Biometry -------- BPD: 82.1 mm G. Age: 33w 0d 80 % CI: 75.8 % 70 - 86 OFD: 108.3 mm FL/HC: 19.7 % 19.1 - 21.3 HC: 309.3 mm G. Age: 34w 4d 88 % HC/AC: 1.17 0.96 - 1.17 AC: 264.9 mm G. Age: 30w 4d 22 % FL/BPD: 74.1 % 71 - 87 FL: 60.8 mm G. Age: 31w 4d 38 % FL/AC: 23.0 % 20 - 24 RIGHT FL: 60.8 mm G. Age: 31w 4d 38 % LEFT Est. FW: 1777 gm 3 lb 15 oz 47 % Gestational Age Clinical NAIF: 31w 4d NAIF: 10/17/19 U/S Today: 32w 3d NAIF: 10/11/19 Best: 31w 4d Det. By: Clinical NAIF NAIF: 10/17/19 Anatomy ------- Palate: Normal appearance Targeted Anatomy Central Nervous System Calvarium: Normal appearance Choroid Plexus: Normal appearance Intracranial: Normal appearance Head/Neck Nuchal Fold: Normal appearance Neck: Normal appearance Eyes: Normal appearance Profile: Normal appearance Thorax Thoracic Normal appearance L Outflow Tract: Normal appearance Contour: Lungs: Normal appearance Cardiac Rhythm: Normal appearance Four Chamber: Normal appearance Cardiac Mcalpin: Normal appearance Cardiac Motion: Observed 3 Vessel View: Normal appearance R Outflow Tract: Normal appearance Diaphragm: Normal appearance Abdomen Ventral Wall: Normal appearance Rt Kidney: Normal appearance Stomach: Normal appearance Bladder: Normal appearance Situs: Normal appearance Bowel: Normal appearance Liver: Normal appearance Spleen: Normal appearance Lt Kidney: Normal appearance Extremities Lt Humerus: Present Lt Femur: Normal appearance Rt Humerus: Present Rt Femur: Normal appearance Lt Forearm: Present Lt Lower Leg: Present Rt Forearm: Present Rt Lower Leg: Present Lt Hand: Present Lt Foot: Present Rt Hand: Present Rt Foot: Present Other Umbilical Cord: Normal 3-vessel Genitalia: Normal appearance Masses: Normal appearance Cord Insertion: Normal appearance Impression Waldrop live intrauterine at 31w 4d. Normal growth; EFW 1777 grams, which is at the 47% for this gestational age. The amniotic fluid index is 9.7cm, which is within normal limits. Incidental BPP today is 8/8 Anatomy is extremely limited based upon gestational age Continued IP management Ultrasound is not diagnostic of chromosomal aneuploidy and does not detect all subtle defects. Normal ultrasound findings do not guarantee normal outcomes. Estela Vigil MD Electronically Signed Final Report 08/19/2019 09:41 am --- Final --- Dictated: 08/19/2019 8:32 am Dictating Physician: ESTELA ALMAZAN Signed Date and Time: 08/19/2019 9:42 am Signed by: ESTELA ALMAZAN [place], [place] Patient Name: NAV ROSS ---Maternal Medicine--- Exam Date/Time 08/19/2019 08:31:13 EDT Exam M US Complete w/detail Ordering Physician DO ABBOTT SETH Accession Number [id number] Reason For Exam PRE-ECLAMPSIA Report OBSTETRICS REPORT (Signed Final 08/19/2019 09:41 am) Patient Info ID #: [id number] : [birth year] (29 yrs) Name: NAV ROSS Visit Date: 08/19/2019 08:32 am Performed By Performed By: Ruperto Aldana [facility] Referred By: CHRISTINE ABBOTT Attending: Estela Vigil MD Service(s) Provided US Level II complete (Targeted OB) 41036 Indications Preeclampsia Evaluation Num Of Fetuses: 1 Heart 134 Rate(bpm): Cardiac Activity: Regular rhythm Lie: Longitudinal Presentation: Cephalic Placenta: Posterior Amniotic Fluid NONA FV: Within normal limits NONA Sum: 9.7 cm 13 %Tile Larg Pckt: 4.72 cm RUQ: 2.35 cm RLQ: 1.26 cm LUQ: 4.72 cm LLQ: 1.37 cm Biometry -------- BPD: 82.1 mm G. Age: 33w 0d 80 % CI: 75.8 % 70 - 86 OFD: 108.3 mm FL/HC: 19.7 % 19.1 - 21.3 HC: 309.3 mm G. Age: 34w 4d 88 % HC/AC: 1.17 0.96 - 1.17 AC: 264.9 mm G. Age: 30w 4d 22 % FL/BPD: 74.1 % 71 - 87 FL: 60.8 mm G. Age: 31w 4d 38 % FL/AC: 23.0 % 20 - 24 RIGHT FL: 60.8 mm G. Age: 31w 4d 38 % LEFT Est. FW: 1777 gm 3 lb 15 oz 47 % Gestational Age Clinical NAIF: 31w 4d NAIF: 10/17/19 U/S Today: 32w 3d NAIF: 10/11/19 Best: 31w 4d Det. By: Clinical NAIF NAIF: 10/17/19 Anatomy ------- Palate: Normal appearance Targeted Anatomy Central Nervous System Calvarium: Normal appearance Choroid Plexus: Normal appearance Intracranial: Normal appearance Head/Neck Nuchal Fold: Normal appearance Neck: Normal appearance Eyes: Normal appearance Profile: Normal appearance Thorax Thoracic Normal appearance L Outflow Tract: Normal appearance Contour: Lungs: Normal appearance Cardiac Rhythm: Normal appearance Four Chamber: Normal appearance Cardiac Mcalpin: Normal appearance Cardiac Motion: Observed 3 Vessel View: Normal appearance R Outflow Tract: Normal appearance Diaphragm: Normal appearance Abdomen Ventral Wall: Normal appearance Rt Kidney: Normal appearance Stomach: Normal appearance Bladder: Normal appearance Situs: Normal appearance Bowel: Normal appearance Liver: Normal appearance Spleen: Normal appearance Lt Kidney: Normal appearance Extremities Lt Humerus: Present Lt Femur: Normal appearance Rt Humerus: Present Rt Femur: Normal appearance Lt Forearm: Present Lt Lower Leg: Present Rt Forearm: Present Rt Lower Leg: Present Lt Hand: Present Lt Foot: Present Rt Hand: Present Rt Foot: Present Other Umbilical Cord: Normal 3-vessel Genitalia: Normal appearance Masses: Normal appearance Cord Insertion: Normal appearance Impression Waldrop live intrauterine at 31w 4d. Normal growth; EFW 1777 grams, which is at the 47% for this gestational age. The amniotic fluid index is 9.7cm, which is within normal limits. Incidental BPP today is 8/8 Anatomy is extremely limited based upon gestational age Continued IP management Ultrasound is not diagnostic of chromosomal aneuploidy and does not detect all subtle defects. Normal ultrasound findings do not guarantee normal outcomes. Estela Vigil MD Electronically Signed Final Report 08/19/2019 09:41 am --- Final --- Dictated: 08/19/2019 8:32 am Dictating Physician: ESTELA ALMAZAN Signed Date and Time: 08/19/2019 9:42 am Signed by: ESTELA ALMAZAN [place], [place] TYPE AND SCREENon 08-18-2019 Sodium [Moles/Vol] [place] Sodium [Moles/Vol] Negative [place] Sodium [Moles/Vol] Positive [place] Test Performed by [facility], [address] [place] [id number] [place] ABO, External Resulton 03-07 ABO, External Result A [place], [place] HIV, External Resulton 03-07 HIV, External Result Negative [place], [place] Hepatitis B, External Result on 03-07-2019 Hep B, External Result Negative [place] Hepatitis C Antibody, President & Ceo al Resulton 03-07-2019 Hepatitis C Antibody, External Result Negative [place] Otheron 03-07-2019 Verified with David Lee [place], [place] RPR, External Labon 03-07-20 19 RPR, External Result non reactive Me [place], [place] Rh Factor, External Resulton 03-07-2019 Rh Factor, External Result Positive [place] Rubella Titer, External Resu lton 03-07-2019 Rubella Titer, External Result immune [place], [place] .Manual Abson 08-18-2017 Basophil Abs Man 0.0 10x3/ Normal 0.0-0.2 [facility] Comment on above: Order Comment: Order Added by Discern Expert. Performed By: #### 1 [id number] ####[place] [address] Eos Abs Man 0.0 10x3/ Normal 0.0-0.5 [facility] Comment on above: Order Comment: Order Added by Discern Expert. Performed By: #### 1 [id number] ####[place] [address] Lymphocytes 1.1 10x3/ Low 1.2-3.4 [facility] Comment on above: Order Comment: Order Added by Discern Expert. Performed By: #### 1 [id number] ####[place] [address] Hamlin Abs Man 0.5 10x3/ Normal 0.0-0.7 [facility] Comment on above: Order Comment: Order Added by Discern Expert. Performed By: #### 1 [id number] ####[place] [address] Segs Abs Man 2.5 10x3/ Normal 1.4-6.5 [facility] Comment on above: Order Comment: Order Added by Discern Expert. Performed By: #### 1 [id number] ####[place] [address] BMPon 08-18-2017 BUN/Creatinine Ratio 11.7 ratio Normal 5.4-30.0 [facility] Comment on above: Performed By: #### 1 [id number] ####[place] [address] Calcium 9.7 mg/dL Normal 8.4-10.2 [facility] Comment on above: Performed By: #### 1 [id number] ####[place] [address] Chloride 107 mmol/L Normal 98-107 [facility] Comment on above: Performed By: #### 1 [id number] ####PARUL Send Outs [address] [place] [address] CO2 22.1 mmol/L Low 24.0-30.0 [facility] Comment on above: Performed By: #### 1 [id number] ####PARUL Send Outs Nvgbnwwgou9002 [place] [address] Creatinine 0.6 mg/dL Normal 0.6-1.3 [facility] Comment on above: Performed By: #### 1 [id number] ####PARUL Send Outs Vmfmmkcqbe2214 [place] [address] Glucose mass conc 92 mg/dL Normal 70-99 [facility] Comment on above: Performed By: #### 1 [id number] ####PARUL Send Outs [address] [place] [address] Potassium molar conc 3.6 mmol/L Normal 3.5-5.1 [facility] Comment on above: Performed By: #### 1 [id number] ####PARUL Send Outs [address] [place] [address] Sodium 138 mmol/L Normal 136-145 [facility] Comment on above: Performed By: #### 1 [id number] ####PARUL Send Outs [address] [place] [address] Urea nitrogen 7 mg/dL Normal 7-18 [facility] Comment on above: Performed By: #### 1 [id number] ####PARUL Send Outs Yx[address] [place], [place] [address] CBC w/ Auto Diffon 8 Erythrocyte distribution width Auto Ratio (RBC) 13.0 % Normal 11.5-14.5 [facility] Comment on above: Performed By: #### 1 [id number] ####PARUL Send Outs [address] [place], [place] [address] Erythrocytes (RBC) 4.14 E6/mcL Normal 3.90-5.[address] [facility] Comment on above: Performed By: #### 1 [id number] ####PARUL Send Outs [address]ks[address] [place], [place] [address] Hematocrit (HCT) 37.2 % Normal 36.0-48.0 [facility] Comment on above: Performed By: #### 1 [id number] ####PARUL Send Outs Hgv[address]au[address] [place], [place] [address] Hemoglobin mass conc (Bld) 12.6 g/dL Normal 12.0-16.0 [facility] Comment on above: Performed By: #### 1 [id number] ####PARUL Send Outs Ufro[address]qks[address] [place] [address] MCH 30.4 pg Normal 27.0-31.0 [facility] Comment on above: Performed By: #### 1 [id number] ####PARUL Send Outs Z[address] [place] [address] MCHC mass conc (RBC) 33.8 g/dL Normal 33.0-37.0 [facility] Comment on above: Performed By: #### 1 [id number] ####PARUL Send Outs L[address] [place] [address] MCV 89.9 fL Normal 78.0-100.0 [facility] Comment on above: Performed By: #### 1 [id number] ####[place] [address] Platelet mean volume (PMV) 9.8 fL Normal 7.4-11.0 [facility] Comment on above: Performed By: #### 1 [id number] ####[place] [address] Platelets 87 E3/mcL Low 130-400 [facility] Comment on above: Performed By: #### 1 [id number] ####PARUL Send Outs [address] [place] [address] WBC (Leukocytes) 4.1 E3/mcL Normal 3.6-11.0 [facility] Comment on above: Performed By: #### 1 [id number] ####[place] [address] CT Abdomen/Pelvis w/ Contras ton 08-18-2017 CT Abdomen/Pelvis w/ Contrast Exam Date/Time:08/18/2017 16:35 EDTReason for Exam:PainReportCT OF THE ABDOMEN AND PELVIS WITH CONTRASTCLINICAL STATEMENT: Pain in the right abdomen and epigastric region, vomiting.COMPARISON: Abdominal ultrasound 08/18/2017.TECHNIQUE: CT examination of the abdomen and pelvis following theadministration of 100 mL of Omnipaque 300 intravenous contrast. ?Coronal andsagittal reformations were performed.Dose reduction techniques were achieved by using automated exposure controland/or adjustment of mA and/or kV according to patient size and/or use ofiterative reconstruction technique.FINDINGS:CT OF THE ABDOMEN: The visualized lung bases are clear. The heart size isnormal.No abnormality is seen in the liver, spleen, gallbladder, or pancreas. Theadrenal glands, kidneys, aorta, and retroperitoneum look negative. There areprominent patent ovarian veins seen bilaterally.The bowel loops are normal in size. There is no obstruction or inflammation. Anormal appendix is seen.CT OF THE PELVIS: The uterus is retroverted. There is a centrally positionedintrauterine device. An involuting corpus luteum is seen in the right ovary.There is no free fluid identified. The rectosigmoid and urinary bladder looknegative. No spinal abnormality is seen.IMPRESSION:1. No abnormality identified.2. Normal appendix and intestinal tract.3. Negative gallbladder and pancreas.Exam Date/Time:08/18/2017 16:35 EDTReport4. Negative urinary and gynecological tract. FINAL REPORT Dictated: 08/18/2017 5:17 pm Xochitl Paz MDSigned (Electronic Signature): 08/18/2017 5:17 pmSigned by: Xochitl Paz MD Technologist: MLL Normal [facility] Hep Func Panelon 08-18-2017 Alanine aminotransferase (ALT) 23 Int._Unit/L Normal 10-40 [facility] Comment on above: Performed By: #### 1 [id number] ####PARUL Send Outs [address]clvnhc7374 [place] [address] Albumin 4.1 g/dL Normal 3.2-5.0 [facility] Comment on above: Performed By: #### 1 [id number] ####PARUL Send Outs Psqckqkysk8325 [place] [address] Albumin/Globulin Ratio 1.3 {ratio} Normal 1.1-1.9 [facility] Comment on above: Performed By: #### 1 [id number] ####PARUL Send Outs Pmtmzdljfx5476 [place] [address] Alk Phos 51 Int._Unit/L Normal 42-121 [facility] Comment on above: Performed By: #### 1 [id number] ####[place] [address] Aspartate aminotransferase (AST) 28 Int._Unit/L Normal 10-42 [facility] Comment on above: Performed By: #### 1 [id number] ####[place] [address] Bili Direct <.10 Normal .00-.20 [facility] Comment on above: Performed By: #### 1 [id number] ####[place] [address] Bili Indirect >0.2 Normal [facility] Comment on above: Result Comment: No e stablished ranges available for the Indirect Biliruben. Performed By: #### 1 [id number] ####[place] [address] Bili Total 0.3 mg/dL Normal 0.2-1.0 [facility] Comment on above: Performed By: #### 1 [id number] ####[place] [address] Globulin 3.2 g/dL Normal 2.0-4.0 [facility] Comment on above: Performed By: #### 1 [id number] ####[place] [address] Protein 7.3 g/dL Normal 6.4-8.3 [facility] Comment on above: Performed By: #### 1 [id number] ####[place] [address] Lipase Levelon 08-18-2017 Lipase Lvl 22 U/L Normal 8-57 [facility] Comment on above: Performed By: #### 1 [id number] ####[place] [address] Manual Diffon 08-18-2017 Basophils/100 WBC Auto (Bld) 0 % Normal 0-1 [facility] Comment on above: Order Comment: Order Added by Discern Expert. Performed By: #### 1 [id number] ####[place] [address] Eosinophils/100 leukocytes 0 % Normal 0-5 [facility] Comment on above: Order Comment: Order Added by Discern Expert. Performed By: #### 1 [id number] ####PARUL Send Outs Tl[address]ktditdu9389 [place] [address] Erythrocyte morphology NORMAL Normal [facility] Comment on above: Order Comment: Order Added by Discern Expert. Performed By: #### 1 [id number] ####PARUL Send Outs Imcegbknyu7329 [place] [address] Lymphocytes/100 leukocytes 27 % Normal 14-48 [facility] Comment on above: Order Comment: Order Added by Discern Expert. Performed By: #### 1 [id number] ####PARUL Send Outs [address] [place] [address] Monocytes/100 leukocytes 11 % Normal 1-11 [facility] Comment on above: Order Comment: Order Added by Discern Expert. Performed By: #### 1 [id number] ####PARUL Send Outs [address] [place] [address] Segs Man 62 % Normal 37-75 [facility] Comment on above: Order Comment: Order Added by Discern Expert. Performed By: #### 1 [id number] ####PARUL Send Outs [address] [place] [address] U BhCG Qlton 08-18-2017 HCG.beta subunit Qn Negative Normal Neg [facility] Comment on above: Performed By: #### 2 [id number] ####PARUL Urinalysis Manual [address] [place] [address] UA Completeon 08-18-2017 UA Blood Negative Normal Negative [facility] Comment on above: Performed By: #### 8 [id number] ####PARUL Urinalysis Automated Phit[address]ospd4089 [place] [address] UA CA Ox Crystal 5-10 Abnormal None [facility] Comment on above: Performed By: #### 8 [id number] ####PARUL Urinalysis Automated Tbpxkcnbug1839 [place] [address] UA Clarity Turbid Abnormal Clear [facility] Comment on above: Performed By: #### 8 [id number] ####PARUL Urinalysis Automated [address] [place] [address] UA Leuk Est Negative Normal Negative [facility] Comment on above: Performed By: #### 8 [id number] ####PARUL Urinalysis Automated Kvrmcktuhx4209 [place] [address] UA Mucous Many Abnormal Trace [facility] Comment on above: Performed By: #### 8 [id number] ####PARUL Urinalysis Automated Gzdsstvcng2858 [place] [address] UA Nitrite Negative Normal Negative [facility] Comment on above: Performed By: #### 8 [id number] ####PARUL Urinalysis Automated [address] [place] [address] UA pH 5.0 Normal 4.6-8.0 [facility] Comment on above: Performed By: #### 8 [id number] ####PARUL Urinalysis Automated [address]ts[address] [place] [address] UA Protein 1+ Abnormal Negative [facility] Comment on above: Performed By: #### 8 [id number] ####PARUL Urinalysis Automated [address] [place] [address] UA Spec Grav 1.032 High 1.003-1.030 [facility] Comment on above: Performed By: #### 8 [id number] ####PARUL Urinalysis Automated [address] [place] [address] UA Squam Epithelial 5-10 Abnormal 0-[address] [facility] Comment on above: Performed By: #### 8 [id number] ####PARUL Urinalysis Automated Elogiecrgr4825 [place] [address] UA Urobilinogen Negative Normal [facility] Comment on above: Performed By: #### 8 [id number] ####PARUL Urinalysis Automated Azbntrfdhi5028 [place] [address] UA WBC 0-5 Normal 0-5 [facility] Comment on above: Performed By: #### 8 [id number] ####PARUL Urinalysis Automated [address] [place] [address] Urine, color Yellow Normal Yellow [facility] Comment on above: Performed By: #### 8 [id number] ####PARUL Urinalysis Automated [address] [place] [address] Urine, erythrocytes 0-3 Normal 0-[address] [facility] Comment on above: Performed By: #### 8 [id number] ####PARUL Urinalysis Automated Smueafhrlv5673 [place] [address] Urine, glucose Negative Normal Negative [facility] Comment on above: Performed By: #### 8 [id number] ####PARUL Urinalysis Automated Rxfscdmkpi1980 [place] [address] Urine, ketones presence Negative Normal Negative [facility] Comment on above: Performed By: #### 8 [id number] ####PARUL Urinalysis Automated Xkwcgjziaz7200 [place] [address] Urine, urobilinogen Negative Normal Negative [facility] Comment on above: Performed By: #### 8 [id number] ####PARUL Urinalysis Automated [address] [place] [address] US Abdomen, Limitedon 2017 US Abdomen, Limited Exam Date/Time: 018 15:39 EDTReason for Exam:Abdominal painReportGALLBLADDER ULTRASOUNDHISTORY: Right upper quadrant pain.FINDINGS:The gallbladder is normal in size and shape. No evidence of cholelithiasis isseen. There is no pericholecystic edema. The common bile duct measures 3.4 mm.The gallbladder wall thickness is 2.2 mm. There is no intrahepatic biliary dilatation.The liver and pancreas are normal in echogenicity.IMPRESSION:No rmal gallbladder ultrasound. FINAL REPORT Dictated: 08/18/2017 3:52 pm Ron Carroll MD KSigned (Electronic Signature): 08/18/2017 3:52 pmSigned by: Ron Carroll MD Technologist: Normal [facility] eGFRon 08-18-2017 eGFR (non-black) mL/min/{1.73_m2} Normal [facility] Comment on above: Order Comment: Order added by Discern Expert. Performed By: #### 1 [id number] ####PARUL Send Outs Vlkwnlnuux5281 [place] [address] zzplt morphon 08-18-2017 Platelet morphology NORMAL Normal [facility] Comment on above: Performed By: #### 1 [id number] ####PARUL Send Outs Qu[address]zrjopnc8868 [place] [address] Platelets DECREASED Normal [facility] Comment on above: Performed By: #### 1 [id number] ####PARUL Send Outs Bmuehvqqyk2925 [place] [address] Auto Diffon 08-17-2017 Basophils Auto #/vol (Bld) 0.0 E3/mcL Normal 0.0-0.2 [facility] Comment on above: Order Comment: Order Added by Discern Expert. Performed By: #### 2 [id number] ####PARUL PrhVibq8492 [place] [address] Basophils/100 WBC Auto (Bld) 1.0 % Normal 0.0-2.0 [facility] Comment on above: Order Comment: Order Added by Discern Expert. Performed By: #### 2 [id number] ####PARUL [address]fkXlmy[address]609 [place] [address] Eos Absolute 0.2 E3/mcL Normal 0.0-0.7 [facility] Comment on above: Order Comment: Order Added by Discern Expert. Performed By: #### 2 [id number] ####PARUL AhyQfao4962 [place] [address] Eosinophils/100 leukocytes 3.2 % Normal 0.0-11.0 [facility] Comment on above: Order Comment: Order Added by Discern Expert. Performed By: #### 2 [id number] ####PARUL HdsAmxn8458 [place] [address] Lymphocytes 1.2 E3/mcL Normal 1.2-3.4 [facility] Comment on above: Order Comment: Order Added by Discern Expert. Performed By: #### 2 [id number] ####PARUL PoxUyyq6516 [place] [address] Lymphocytes/100 leukocytes 23.7 % Normal 20.0-55.0 [facility] Comment on above: Order Comment: Order Added by Discern Expert. Performed By: #### 2 [id number] ####PARUL OylPohm1492 [place] [address] Hamlin Absolute 0.8 E3/mcL High 0.0-0.7 [facility] Comment on above: Order Comment: Order Added by Discern Expert. Performed By: #### 2 [id number] ####PARUL Oweno[address]25 [place] [address] Monocytes/100 leukocytes 15.2 % High 0.0-10.0 [facility] Comment on above: Order Comment: Order Added by Discern Expert. Performed By: #### 2 [id number] ####PARUL [address] [place] [address] Neutro Absolute 2.9 E3/mcL Normal 1.4-6.5 [facility] Comment on above: Order Comment: Order Added by Discern Expert. Performed By: #### 2 [id number] ####PARUL [address] [place] [address] Neutro Auto 56.9 % Normal 37.0-75.0 [facility] Comment on above: Order Comment: Order Added by Discern Expert. Performed By: #### 2 [id number] ####PARUL [address] [place] [address] CBC w/ Auto Diffon 8 Erythrocyte distribution width Auto Ratio (RBC) 13.0 % Normal 11.5-14.5 [facility] Comment on above: Performed By: #### 2 [id number] ####PARUL [address] [place] [address] Erythrocytes (RBC) 4.37 E6/mcL Normal 3.90-5.[address] [facility] Comment on above: Performed By: #### 2 298601 ####PARUL [address] [place] [address] Hematocrit (HCT) 39.6 % Normal 36.0-48.0 [facility] Comment on above: Performed By: #### 2 [id number] ####PARUL [address] [place] [address] Hemoglobin mass conc (Bld) 13.7 g/dL Normal 12.0-16.0 [facility] Comment on above: Performed By: #### 2 [id number] ####PARUL [address] [place] [id number] MCH 31.5 pg High 27.0-31.0 [facility] Comment on above: Performed By: #### 2 [id number] ####PARUL [address] [place] [address] MCHC mass conc (RBC) 34.7 g/dL Normal 33.0-37.0 [facility] Comment on above: Performed By: #### 2 [id number] ####PRAUL [address] [place] [address] MCV 90.7 fL Normal 78.0-100.0 [facility] Comment on above: Performed By: #### 2 000714 ####PARUL [address] [place] [address] Platelet mean volume (PMV) 9.2 fL Normal 7.4-11.0 [facility] Comment on above: Performed By: #### 2 [id number] ####PARUL [address] [place] [address] Platelets 209 E3/mcL Normal 130-400 [facility] Comment on above: Performed By: #### 2 [id number] ####PARUL [address] [place] [address] WBC (Leukocytes) 5.0 E3/mcL Normal 3.6-11.0 [facility] Comment on above: Performed By: #### 2 [id number] ####PARUL [address] [place] [address] CMPon 08-17-2017 Alanine aminotransferase (ALT) 20 Int._Unit/L Normal 10-40 [facility] Comment on above: Performed By: #### 2 [id number] ####PARUL KtfKsco0590 [place] [address] Albumin 4.3 g/dL Normal 3.2-5.0 [facility] Comment on above: Performed By: #### 2 [id number] ####PARUL ChristiansonMjtFcuo2605 [place] [address] Albumin/Globulin Ratio 1.3 {ratio} Normal 1.1-1.9 [facility] Comment on above: Performed By: #### 2 [id number] ####PARUL [address]Pwr[address] [place] [address] Alk Phos 48 Int._Unit/L Normal 42-121 [facility] Comment on above: Performed By: #### 2 [id number] ####PARUL M[address]ufk7882 [place] [address] Aspartate aminotransferase (AST) 23 Int._Unit/L Normal 10-42 [facility] Comment on above: Performed By: #### 2 [id number] ####PARUL [id number] [place] [address] Bili Total 0.4 mg/dL Normal 0.2-1.0 [facility] Comment on above: Performed By: #### 2 [id number] ####PARUL NjpWpec5271 [place] [address] BUN/Creatinine Ratio 10.0 ratio Normal 5.4-30.0 [facility] Comment on above: Performed By: #### 2 [id number] ####PARUL AlbNyuj3601 [place] [address] Creatinine 0.6 mg/dL Normal 0.6-1.3 [facility] Comment on above: Performed By: #### 2 [id number] ####PARUL PszKerm5068 [place] [address] Globulin 3.2 g/dL Normal 2.0-4.0 [facility] Comment on above: Performed By: #### 2 [id number] ####PARUL EsvAeip4092 [place] [address] Protein 7.5 g/dL Normal 6.4-8.3 [facility] Comment on above: Performed By: #### 2 [id number] ####PARUL TppZoit1756 [place] [address] Urea nitrogen 6 mg/dL Low 7-18 [facility] Comment on above: Performed By: #### 2 [id number] ####PARUL ZajJcaf6653 [place] [address] Calcium 10.0 mg/dL Normal 8.4-10.2 [facility] Comment on above: Performed By: #### 2 [id number] ####PARULKelsea ChristiansonOhrExwp5724 [place] [address] Chloride 105 mmol/L Normal 98-107 [facility] Comment on above: Performed By: #### 2 [id number] ####PARUL [address] [place] [address] CO2 26.3 mmol/L Normal 24.0-30.0 [facility] Comment on above: Performed By: #### 2 [id number] ####PARUL [address] [place] [id number] Glucose mass conc 93 mg/dL Normal 70-99 [facility] Comment on above: Performed By: #### 2 [id number] ####PARUL ZluQevo1161 [place] [id number] Potassium molar conc 3.7 mmol/L Normal 3.5-5.1 [facility] Comment on above: Performed By: #### 2 [id number] ####PARUL Butler[address] [place] [address] Sodium 138 mmol/L Normal 136-145 [facility] Comment on above: Performed By: #### 2 [id number] ####PARUL GasKdou9862 [place] [address] Lipase Levelon 08-17-2017 Lipase Lvl 24 U/L Normal 8-57 [facility] Comment on above: Performed By: #### 2 [id number] ####PARUL ChristiansonWcsZicb0424 [place] [id number] eGFRon 08-17-2017 eGFR (non-black) mL/min/{1.73_m2} Normal [facility] Comment on above: Order Comment: Order added by Discern Expert. Performed By: #### 1 [id number] ####PARUL XcoSvex3317 [place] [address] Lab Miscellaneouson 07-07-19 18 Status See Ref Lab Report Normal [facility] Comment on above: Performed By: #### 1 [id number] ####PARUL Send Outs [address] [place] [address] Lab Miscellaneouson 07-03-19 18 Test Name TB Gold Normal [facility] Comment on above: Performed By: #### 1 [id number] ####PARUL Send Outs E[address] [place] [address] Lab Miscellaneouson 06-30-19 18 Status See Ref Lab Report Normal [facility] Comment on above: Performed By: #### 1 [id number] ####PARUL Send Outs Nctqowahfw9723 [place] [address] Status See Ref Lab Report Normal [facility] Comment on above: Performed By: #### 1 [id number] ####PARUL Send Outs Akxmjhxecr3715 [place] [address] Lab Miscellaneouson 06-26-19 Test Name tdap titer Normal [facility] Comment on above: Performed By: #### 1 [id number] ####PARUL Send Outs N[address] [place], [place] [id number] Test Name mmr titer Normal [facility] Comment on above: Performed By: #### 1 [id number] ####PARUL Send Outs [address] [place] [address] Vital Signs Date Time Vital Sign Value Performing Clinician Dasia spencer 01-24-2024 21:04-0400 Diastolic Blood Pressure Non-Invasive 84 mm[Hg] ULI CATES [facility] 01-24-2024 21:04-0400 Heart rate 78 /min ULI CATES [facility] 01-24-2024 21:04-0400 Reason For Taking VItal Signs LUI CATES MD [facility] 01-24-2024 21:04-0400 Respiratory rate 16 /min ULI CATES MD [facility] 01-24-2024 21:04-0400 Systolic Blood Pressure Non-Invasive 138 mm[Hg] ULI CATES MD [facility] 01-24-2024 20:11-0400 Respiratory rate 18 /min ULI CATES MD [facility] 01-24-2024 19:34-0400 Heart rate 86 /min ULI CATES MD [facility] 01-24-2024 19:34-0400 Respiratory rate 18 /min ULI CATES MD [facility] 01-24-2024 18:32-0400 Body temperature 97.7 [degF] ULI CATES MD [facility] 01-24-2024 18:32-0400 Body weight 83.9 kg ULI CATES MD [facility] 01-24-2024 18:32-0400 Diastolic Blood Pressure Non-Invasive 109 mm[Hg] ULI CATES MD [facility] 01-24-2024 18:32-0400 Heart rate 86 /min ULI CATES [facility] 01-24-2024 18:32-0400 Systolic Blood Pressure Non-Invasive 167 mm[Hg] ULI CATES [facility] 07-26-2021 13:58-0400 Body weight 81.65 kg Mackenzie Hess MD Work Phone: [facility] 07-26-2021 13:58-0400 Diastolic blood pressure 76 mm[Hg] Mackenzie Hess MD Work Phone: [facility] 07-26-2021 13:58-0400 Systolic blood pressure 114 mm[Hg] Mackenzie Hess MD Work Phone: [facility] 08-24-2019 08:19-0400 Body Temperature 98.2 [degF] Aviva Aguero [facility], [place] 08-24-2019 08:19-0400 BP Diastolic 90 mm[Hg] Aviva Aguero [facility] , [place] 08-24-2019 08:19-0400 BP Systolic 138 mm[Hg[facility] [place] [facility]-2019 08:19-0400 Pulse (Heart Rate) 82 /min Aviva Aguero [facility], [place] 08-24-2019 08:19-0400 Pulse Oximetry 97 % Aviva Diaz [facility] , [place] 08-24-2019 08:19-0400 Respiratory Rate 18 /min Aviva Diaz [facility], [place] 08-19-2019 03:05-0400 BMI (Body Mass Index) 38.09 kg/m2 Aviva Diaz [facility], [place] 08-19-2019 03:05-0400 Body weight 97.52 kg Aviva Diaz [facility] , [place] 08-19-2019 03:05-0400 Height 160 cm Aviva Aguero [facility] , [place] Encounters Encounter Date Encounter Type Care Provider Facility Start: 01-24-2024 End: 01-24-2024 Emergency department patient visit NONE PHYSICIAN Facility:[facility] Start: 07-26-2021 End: 07-26-2021 Patient encounter procedure Mackenzie Hess MD Work Phone: OB/Gynecology Comment on above: IUD check up (Primar y Dx) Start: 08-18-2019 End: 08-24-2019 Evaluation and management of inpatient Aviav Aguero Work Phone: [facility] Start: 08-18-2017 End: 08-18-2017 Emergency department patient visit Lida L [facility] Facility:[facility] Start: 08-17-2017 End: 08-18-2017 Ambulatory [facility] Facility:[facility] Start: 07-02-2017 End: 07-03-2017 Ambulatory [facility] Facility:[facility] Start: 06-25-2017 End: 06-26-2017 Ambulatory [facility] Facility:[facility] Start: 06-16-2017 End: 06-17-2017 Ambulatory [facility] Facility:[facility] Procedures Date Procedure Procedure Detail Performing Clinician Start: 08-21-2019 Blood count platelet automated Robert Pro Work Phone: Start: 08-20-2019 Gluc bld gluc mntr d ev cleared fda spec home use Aviva Aguero Work Phone: Start: 08-20-2019 Blood count complete automated Nikky Mayberry Work Phone: Start: 08-20-2019 Comprehensive metabo lic panel Nikyk Mayberry Work Phone: Start: 08-20-2019 Gluc bld gluc mntr d ev cleared fda spec home use Aviva Aguero Work Phone: Start: 08-20-2019 Gluc bld gluc mntr d ev cleared fda spec home use Aviva Aguero Work Phone: Start: 08-19-2019 Gluc bld gluc mntr d ev cleared fda spec home use Aviva Aguero Work Phone: Start: 08-19-2019 Us preg uterus w/det ail jeferson 1st gestation Christine Lee Milena Work Phone: Start: 08-19-2019 Blood count complete automated Ophelia Chaudharyheshamjames Work Phone: Start: 08-19-2019 Comprehensive metabo lic panel Ophelia Chaudharyheshamjames Work Phone: Start: 08-19-2019 Culture bacterial quanttative colony count urine Christine Laraler Work Phone: Start: 08-18-2019 Susceptiblty stdy antimicrbial micro/agar dilutj Christine M Milena Work Phone: Start: 08-18-2019 Blood typing serologic abo Christine Abbott Work Phone: Start: 03-07-2019 ABO, EXTERNAL RESULT [facility] Start: 03-07-2019 HEPATITIS B, EXTERNA L RESULT Historical Provider Start: 03-07-2019 HEPATITIS C ANTIBODY , EXTERNAL RESULT Historical Provider Start: 03-07-2019 HIV, EXTERNAL RESULT [facility] Start: 03-07-2019 RH FACTOR, EXTERNAL RESULT Historical Provider Start: 03-07-2019 RPR, EXTERNAL RESULT [facility] Start: 03-07-2019 RUBELLA TITER, EXTER NAL RESULT Historical Provider Plan of Treatment Date Care Activity Detail Author Start: 12-19-2021 Influenza vaccination INFLUENZ A (Season Ended) [facility] Start: 11-17-2021 PAP TESTING PAP TESTING [facility] Start: 12-20-2019 Influenza vaccination Flu vacc ine (Season Ended) [place], [place] Start: 07-17-2011 Urine microalbumin profile DTAP,TDAP,TD (1 - Tdap) [facility] Start: 2010 HEPATITIS C SCREENING HEPATITIS C SC RACHEAL [facility] Start: 2010 HIV SCREENING HIV SCREENING [facility] Start: 2004 Adult depression screening assessment DEPRESSION SCREENING [facility] Start: 1997 COVID-19 VACCINE (1) COVID-19 VACCIN E (1) [facility] Immunizations Immunization Date Immunization Notes Care Provider Fa cility 08-21-2019 diphtheria, tetanus toxoids and acellular pertussis vaccine, unspecified formulation Aviva [place] 08-21-2019 measles, mumps and rubella virus vaccine [place], [place] NEGATED: Highlighted row has not occurred!08-24-2019 measles, mumps and rubella virus vaccine [place], [place] NEGATED: Highlighted row has not occurred!08-24-2019 tetanus toxoid, reduced diphtheria toxoid, and acellular pertussis vaccine, adsorbed [place], [place] Comment on above: Deferred: - prior im munization Payers Date Payer Category Payer Unknown [id number] 2019 Medicaid [employer] [place] [id number] 2019-Present [id number] [place] [address] [id number] Medicaid 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 01-24-2024 Mental Status [facility] Clinical Notes 06-17-2021 to 01-24-2024 Mackenzie Hess MD - 07/26/2021 1:56 PM EDT Note Date & Type Note Facility 01-24-2024 Hospital Discharge instructions Patient Education 01/24/2024 21:01:30 Hypertension, To Be Confirmed High Blood Pressure, To Be Confirmed, No Treatment Your blood pressure today was higher than normal. Sometimes anxiety or pain can cause a temporary rise in blood pressure. It later returns to normal. Blood pressure that is high only one time doesn t mean that you have high blood pressure (hypertension). High blood pressure is a chronic illness. But you should have your blood pressure measured again within the next few days to find out if it s still high. Blood pressure measurements are given as 2 numbers. Systolic blood pressure is the upper number. This is the pressure when the heart contracts. Diastolic blood pressure is the lower number. This is the pressure when the heart relaxes between beats. You will see your blood pressure readings written together. For example, a person with a systolic pressure of 118 and a diastolic pressure of 78 will have 118/78 written in the medical record. Blood pressure is categorized as normal, elevated, or stage 1 or stage 2 high blood pressure: Normal blood pressure is systolic of less than 120 and diastolic of less than 80 (120/80) Elevated blood pressure is systolic of 120 to 129 and diastolic less than 80 Stage 1 high blood pressure is systolic is 130 to 139 or diastolic between 80 to 89 Stage 2 high blood pressure is when systolic is 140 or higher or the diastolic is 90 or higher Lifestyle changes such as weight loss, exercise, and quitting smoking, can help manage your blood pressure. Have your blood pressure checked regularly to be sure it is under control. Home care To track your blood pressure, your provider may ask you to come into the office at different times and on different days. If your healthcare provider asks you to check your readings at home, ask him or her what times of the day to test and for how many days. Before you leave the office, ask your provider to show you how to take your blood pressure and be sure to ask questions if you don't understand something. Consider buying an automatic blood pressure monitor. Ask your provider for a recommendation as well as the proper size cuff to fit your arm. You can buy blood pressure monitors at most pharmacies. The [place] [employer] recommends the following guidelines for home blood pressure monitoring: Don't smoke or drink coffee or other caffeinated drinks for 30 minutes before taking your blood pressure. Go to the bathroom before the test. Relax for 5 minutes before taking the measurement. Sit with your back supported (don't sit on a couch or soft chair); keep your feet on the floor uncrossed. Place your arm on a solid flat surface (like a table) with the upper part of the arm at heart level. Place the middle of the cuff directly above the bend of the elbow. Check the monitor's instruction manual for an illustration. Take multiple readings. When you measure, take 2 to 3 readings one minute apart and record all of the results. Take your blood pressure at the same time every day, or as your healthcare provider recommends. Record the date, time, and blood pressure reading. Take the record with you to your next medical appointment. If your blood pressure monitor has a built-in memory, simply take the monitor with you to your next appointment. Call your provider if you have several high readings. Don't be frightened by a single high blood pressure reading, but if you get several high readings, check in with your healthcare provider. Note: When blood pressure reaches a systolic (top number) of 180 or higher OR diastolic (bottom number) of 110 or higher, seek emergency medical treatment. Follow-up care Keep all of your follow up appointments. If your blood pressure is more than 120 over 80 on 2 out of 3 days, you will need to follow up with your healthcare provider for more evaluation and treatment. Don t put this off! High blood pressure can be treated. High blood pressure that s not treated raises your risk for heart attack, heart failure, and stroke. When to seek medical advice Call your healthcare provider right away if any of these occur: Blood pressure reaches a systolic (top number) of 180 or higher, OR diastolic (bottom number) of 110 or higher Chest pain or shortness of breath Severe headache Throbbing or rushing sound in the ears Nosebleed Sudden severe pain in your belly (abdomen) Extreme drowsiness, confusion, or fainting Dizziness or dizziness with spinning sensation (vertigo) Weakness of an arm or leg or one side of the face You have problems speaking or seeing [id number] [employer]. [address] [place] [address]. All rights reserved. This information is not intended as a substitute for professional medical care. Always follow your healthcare professional's instructions. 01/24/2024 21:01:27 Bronchospasm (Adult) Bronchospasm (Adult) Bronchospasm occurs when the airways (bronchial tubes) go into spasm and contract. This makes it hard to breathe and causes wheezing (a high-pitched whistling sound). Bronchospasm can also cause frequent coughing without wheezing. Bronchospasm is due to irritation, inflammation, or allergic reaction of the airways. People with asthma get bronchospasm. However, not everyone with bronchospasm has asthma. Being exposed to harmful fumes, a recent case of bronchitis, exercise, or a flare-up of chronic obstructive pulmonary disease (COPD) may cause the airways to spasm. An episode of bronchospasm may last 7 to 14 days. Medicine may be prescribed to relax the airways and prevent wheezing. Antibiotics will be prescribed only if your healthcare provider thinks there is a bacterial infection. Antibiotics do not help a viral infection. Home care Drink lots of water or other fluids (at least 10 glasses a day) during an attack. This will loosen lung secretions and make it easier to breathe. If you have heart or kidney disease, check with your doctor before you drink extra fluids. Take prescribed medicine exactly at the times advised. If you take an inhaled medicine to help with breathing, don't use it more than once every 4 hours, unless told to do so. If prescribed an antibiotic or prednisone, take all of the medicine, even if you are feeling better after a few days. Don't smoke. Also avoid being exposed to secondhand smoke. If you were given an inhaler, use it exactly as directed. If you need to use it more often than prescribed, your condition may be getting worse. Contact your healthcare provider. Follow-up care Follow up with your healthcare provider, or as advised. If you are age 65 or older, have a chronic lung disease or condition that affects your immune system, or you smoke, ask your healthcare provider about getting a pneumococcal vaccine, as well as a yearly flu shot (influenza vaccine). When to seek medical advice Call your healthcare provider right away if any of these occur: You need to use your inhalers more often than usual Fever of 100.4 F (38 C) or higher, or as directed by your healthcare provider Cough that brings up lots of dark-colored sputum (mucus) You don't get better within 24 hours Call 911 Call 911 if any of these occur: Coughing up bloody sputum (mucus) Chest pain with each breath Increased wheezing or shortness of breath [id number] [employer]. [address] [place] [address]. All rights reserved. This information is not intended as a substitute for professional medical care. Always follow your healthcare professional's instructions. Follow Up Care 01/24/2024 18:20:56 With:ESAU CORSS Address: [address] [place] [address] [place] [address]- [phone] Business (1) When:2-4 days Comments:Schedule appointment as soon as possibleReturn to ED if symptoms worsenTake 1200 mg regular Mucinex 2 times daily till better increase fluidsReturn for symptoms as described or worseFollow-up for recheck and blood pressure recheck With:NONE PHYSICIAN Address:Unknown When:2-4 days [facility] 01-24-2024 Emergency department Discharge summary Discharge Instructions Thank you for allowing [facility] to assist you with your healthcare needs. The following is important discharge information regarding your hospital visit. Diagnosis from Today's Visit Bronchospasm Hypertension What to Do Next Instructions from Your Care Team Discharge Return to Work, School, or Sports (Return to Work, School, or Sports) - Ordered -- 01/27/24, May return to: work, 01/24/24 21:02:00 EDT Post Acute Orders No qualifying data available. You Need to Schedule the Following Appointments Follow Up with ESAU CROSS When:Within 2-4 days Where:[address] [place] [address] [place] [address]- [phone] Business (1) Additional Information: Schedule appointment as soon as possible Return to ED if symptoms worsen Take 1200 mg regular Mucinex 2 times daily till better increase fluids Return for symptoms as described or worse Follow-up for recheck and blood pressure recheck Follow Up with NONE PHYSICIAN When:Within 2-4 days Allergies amoxicillin Medications Please ask your primary doctor or pharmacist before taking any other medication not listed, including over the counter drugs, herbal medications, vitamins and or supplements as they may interact with your home medications. What How Much When Instructions Last Dose New albuterol (ProAir HFA MDI (90 mcg/ inh) inhalation aerosol) 1 puff(s) by inhalation Every 6 hours as needed for as needed for wheezing Printed Prescription New albuterol-ipratropium (Combivent Respimat CFC free 20 mcg-100 mcg/ inh inhalation aerosol) 1 puff(s) by inhalation Four (4) times a day Printed Prescription New predniSONE (predniSONE 10 mg oral tablet) 3 by mouth Two (2) times a day 6 po 1st dose then 3 po q12 Printed Prescription Please take this list to your next doctor s visit. Bring all medications you take, including over the counter medications, herbals and other supplements with you to your doctor s visit. Patients and families are reminded to discard old lists and to update any records with all medication providers or retail pharmacies. Education Materials High Blood Pressure, To Be Confirmed, No Treatment Your blood pressure today was higher than normal. Sometimes anxiety or pain can cause a temporary rise in blood pressure. It later returns to normal. Blood pressure that is high only one time doesn t mean that you have high blood pressure (hypertension). High blood pressure is a chronic illness. But you should have your blood pressure measured again within the next few days to find out if it s still high. Blood pressure measurements are given as 2 numbers. Systolic blood pressure is the upper number. This is the pressure when the heart contracts. Diastolic blood pressure is the lower number. This is the pressure when the heart relaxes between beats. You will see your blood pressure readings written together. For example, a person with a systolic pressure of 118 and a diastolic pressure of 78 will have 118/78 written in the medical record. Blood pressure is categorized as normal, elevated, or stage 1 or stage 2 high blood pressure: Normal blood pressure is systolic of less than 120 and diastolic of less than 80 (120/80) Elevated blood pressure is systolic of 120 to 129 and diastolic less than 80 Stage 1 high blood pressure is systolic is 130 to 139 or diastolic between 80 to 89 Stage 2 high blood pressure is when systolic is 140 or higher or the diastolic is 90 or higher Lifestyle changes such as weight loss, exercise, and quitting smoking, can help manage your blood pressure. Have your blood pressure checked regularly to be sure it is under control. Home care To track your blood pressure, your provider may ask you to come into the office at different times and on different days. If your healthcare provider asks you to check your readings at home, ask him or her what times of the day to test and for how many days. Before you leave the office, ask your provider to show you how to take your blood pressure and be sure to ask questions if you don't understand something. Consider buying an automatic blood pressure monitor. Ask your provider for a recommendation as well as the proper size cuff to fit your arm. You can buy blood pressure monitors at most pharmacies. The [employer] [employer] recommends the following guidelines for home blood pressure monitoring: Don't smoke or drink coffee or other caffeinated drinks for 30 minutes before taking your blood pressure. Go to the bathroom before the test. Relax for 5 minutes before taking the measurement. Sit with your back supported (don't sit on a couch or soft chair); keep your feet on the floor uncrossed. Place your arm on a solid flat surface (like a table) with the upper part of the arm at heart level. Place the middle of the cuff directly above the bend of the elbow. Check the monitor's instruction manual for an illustration. Take multiple readings. When you measure, take 2 to 3 readings one minute apart and record all of the results. Take your blood pressure at the same time every day, or as your healthcare provider recommends. Record the date, time, and blood pressure reading. Take the record with you to your next medical appointment. If your blood pressure monitor has a built-in memory, simply take the monitor with you to your next appointment. Call your provider if you have several high readings. Don't be frightened by a single high blood pressure reading, but if you get several high readings, check in with your healthcare provider. Note: When blood pressure reaches a systolic (top number) of 180 or higher OR diastolic (bottom number) of 110 or higher, seek emergency medical treatment. Follow-up care Keep all of your follow up appointments. If your blood pressure is more than 120 over 80 on 2 out of 3 days, you will need to follow up with your healthcare provider for more evaluation and treatment. Don t put this off! High blood pressure can be treated. High blood pressure that s not treated raises your risk for heart attack, heart failure, and stroke. When to seek medical advice Call your healthcare provider right away if any of these occur: Blood pressure reaches a systolic (top number) of 180 or higher, OR diastolic (bottom number) of 110 or higher Chest pain or shortness of breath Severe headache Throbbing or rushing sound in the ears Nosebleed Sudden severe pain in your belly (abdomen) Extreme drowsiness, confusion, or fainting Dizziness or dizziness with spinning sensation (vertigo) Weakness of an arm or leg or one side of the face You have problems speaking or seeing [id number] [employer]. [address] [place] [address]. All rights reserved. This information is not intended as a substitute for professional medical care. Always follow your healthcare professional's instructions. Bronchospasm (Adult) Bronchospasm occurs when the airways (bronchial tubes) go into spasm and contract. This makes it hard to breathe and causes wheezing (a high-pitched whistling sound). Bronchospasm can also cause frequent coughing without wheezing. Bronchospasm is due to irritation, inflammation, or allergic reaction of the airways. People with asthma get bronchospasm. However, not everyone with bronchospasm has asthma. Being exposed to harmful fumes, a recent case of bronchitis, exercise, or a flare-up of chronic obstructive pulmonary disease (COPD) may cause the airways to spasm. An episode of bronchospasm may last 7 to 14 days. Medicine may be prescribed to relax the airways and prevent wheezing. Antibiotics will be prescribed only if your healthcare provider thinks there is a bacterial infection. Antibiotics do not help a viral infection. Home care Drink lots of water or other fluids (at least 10 glasses a day) during an attack. This will loosen lung secretions and make it easier to breathe. If you have heart or kidney disease, check with your doctor before you drink extra fluids. Take prescribed medicine exactly at the times advised. If you take an inhaled medicine to help with breathing, don't use it more than once every 4 hours, unless told to do so. If prescribed an antibiotic or prednisone, take all of the medicine, even if you are feeling better after a few days. Don't smoke. Also avoid being exposed to secondhand smoke. If you were given an inhaler, use it exactly as directed. If you need to use it more often than prescribed, your condition may be getting worse. Contact your healthcare provider. Follow-up care Follow up with your healthcare provider, or as advised. If you are age 65 or older, have a chronic lung disease or condition that affects your immune system, or you smoke, ask your healthcare provider about getting a pneumococcal vaccine, as well as a yearly flu shot (influenza vaccine). When to seek medical advice Call your healthcare provider right away if any of these occur: You need to use your inhalers more often than usual Fever of 100.4 F (38 C) or higher, or as directed by your healthcare provider Cough that brings up lots of dark-colored sputum (mucus) You don't get better within 24 hours Call 911 Call 911 if any of these occur: Coughing up bloody sputum (mucus) Chest pain with each breath Increased wheezing or shortness of breath [phone] [employer]. [address] [place] [address]. All rights reserved. This information is not intended as a substitute for professional medical care. Always follow your healthcare professional's instructions. Additional Information VACCINATE! IT SAVES LIVES! Members of the community who have not yet received the COVID-19 vaccine and would like to receive it can visit one of [facility] vaccine clinics. There are many vaccine clinic locations within the [facility]. For locations and available times, please visit [email or web address] It is important to note that some COVID mobile vaccine clinics are held outdoors and may be canceled in rainy or stormy conditions. To learn more about pediatric vaccinations (ages 5-11), we invite you to visit the [facility] webpage. [email or web address] To learn more about the COVID-19 vaccine, we invite you to visit the CDC website for a list of frequently asked questions. https://www.cdc.gov/coronavirus/2 019-ncov/vaccines/faq.html [facility] Patient Portal Access Instructions: Stay connected with your healthcare team and access your personal medical information anytime with the [facility] Patient Portal. If you would like a full copy of your medical records please contact the [facility] Medical Records Department Thursday through Thursday between 8a.m. and 4:30p.m. Please follow the directions below to access the portal: 1.Access the email account you provided upon registration to the [facility].2.Look for an invitation email from [facility].3.Open the email and access the invitation link: Accept Invitation to [facility].Fill in the required hernandez to create your account. Sign into www.[employer] with your username and password that you created in the above steps to stay up to date. You can then view a summary of results, a summary of your visits, and the ability to download your summaries to your computer or send the information securely to a physician. Remember that your healthcare information is confidential, so carefully consider who you will allow to register on the [facility] Patient Portal for access to your information. You can also access the [facility] [employer] Patient Portal on the [employer]. Simply click on Health Records under Health Data and then click on the [employer] logo. HOW TO SAFELY DISPOSE OF PRESCRIPTION MEDICATIONS Please use one of the following methods to safely dispose of your unused medications. 1.Use a drug disposal kit: the drug disposal pouch allows you to safely discard your old and unused drugs. Ask your nurse to give you one when you are discharged.2.Visit a local take-back location: Many local pharmacies and police departments have programs that collect old and unwanted prescription drugs. Call your local pharmacy or go to http://[employer].[place]/3L0Tc2m to find one close to you.3.Make use of household items: Use cat litter or old coffee grounds to dispose medications if other options are not available. Mix your drugs with these household products, seal them in an airtight container and throw it into the garbage. Call [facility]: [phone] to be sure your drugs can be disposed of in this way. Some medicines may require a different approach.4.Never flush your medications down the toilet. IF YOU HAVE BEEN PRESCRIBED AN OPIOIDS FOR PAIN If you have been prescribed an opioid (such as hydrocodone, oxycodone or morphine), it is critical to understand the possible side effects and risks of opioid pain medications. Even when taken as directed, opioids can have several side effects including: Tolerance, meaning you might need to take more of a medication for the same pain relief. Nausea, vomiting and/or constipation. Sleepiness, dizziness, dry mouth, confusion, depression or itching. Physical dependence, meaning you have withdrawal symptoms when a medication is stopped ? this can develop within a few days. KNOW YOUR RESPONSIBILITIES It is important to know exactly how much and how often to take the opioid pain medications you are prescribed. Never take opioids in higher amounts or more often than prescribed. Do not combine opioids with alcohol or other drugs that cause drowsiness, such as benzodiazepines, also known as benzos, including diazepam and alprazolam, muscle relaxants or sleep aids. Never sell or share prescription opioids. This is illegal. Store opioids in a secure place and out of reach of others (including children, family, friends and visitors). The last page(s) of this document has been signed and retained as a CHART COPY Signatures Patient Education Materials Hypertension, To Be Confirmed Bronchospasm (Adult) Medication Leaflets My discharge plan and instructions have been reviewed and explained to me and ICODY BRITTNEE L understand my current condition and have read and understand these discharge instructions. I have received a written copy of the plan/instructions. If I have questions, I am aware that I should contact my doctor. Patient/Communications Technologist Signature: Date/Time: Relationship to Patient: ____ Witness Name/Signature: Date/Time: [facility] 01-24-2024 Note ORIGINAL EXAMINATION: TWO XRAY VIEWS OF THE CHEST 01/24/2024 8:40 pm COMPARISON: None. HISTORY: ORDERING SYSTEM PROVIDED HISTORY: Reason for Exam: SOB/Cough/Fever FINDINGS: Normal cardiomediastinal silhouette. No focal consolidation. No large pleural effusion or pneumothorax. No acute osseous findings. IMPRESSION: No acute radiographic findings. I have personally reviewed the images of this examination and agree with the resident's findings and interpretation. Interpreted by: Preston South DO Preliminary Report By: Matthew Coughlin Electronically signed By Preston South DO Dictated Date: 01/24/2024 8:51:22 PM Prelim Date: 01/24/2024 8:52:21 PM Sign Date: 01/24/2024 9:02:06 PM Ordering Provider: [facility] 07-26-2021 Note HNO ID: [id number] Author: Mackenzie Hess MD Service: ? Author Type: Physician Type: Progress Notes Filed: 07/26/2021 3:54 PM Note Text: Nav Ross presents today for IUD check. She had a Mirena placed on 06/26/21. She has had no complications since placement. Has checked strings. No bleeding. No pain w/ intercourse. Has good support after the miscarriage and is processing this. REVIEW OF SYSTEMS: no new c/o PHYSICAL EXAMINATION: Wt 180 lb (81.6kg) ABDOMEN:soft, non-tender, no masses, no hepatosplenomegaly and no lymphadenopathy EXTERNAL GENITALIA: Normal genitalia and Bartholins, Urethra, Sken'e normal CERVIX: smooth, no lesions. IUD strings visible. IMPRESSION/PLAN: IUD correctly positioned. Mackenzie Hess M.D. [facility] 07-26-2021 History of Present illness Narrative Nav Ross presents today for IUD check. She had a Mirena placed on 06/26/21. She has had no complications since placement. Has checked strings. No bleeding. No pain w/ intercourse. Has good support after the miscarriage and is processing this. REVIEW OF SYSTEMS: no new c/o PHYSICAL EXAMINATION: Wt 180 lb (81.6kg) ABDOMEN:soft, non-tender, no masses, no hepatosplenomegaly and no lymphadenopathy EXTERNAL GENITALIA: Normal genitalia and Bartholins, Urethra, Sken'e normal CERVIX: smooth, no lesions. IUD strings visible. IMPRESSION/PLAN: IUD correctly positioned. Mackenzie Hess M.D. documented in this encounter [facility] 06-26-2021 Note HNO ID: [id number] Author: Mackenzie Hess MD Service: ? Author Type: Physician Type: Progress Notes Filed: 06/26/2021 1:43 PM Note Text: Nav presents today for IUD insertion for contraception. No LMP recorded. GC/chlamydia: Not done: no risk factors and/or patient declines screening test: n/a s/p miscarriage 8 days ago w/ IPAS Side effects including irregular bleeding were discussed with the patient. The patient understands that it should be removed in 6 years or sooner if the patiient desires a . IUD source: office provided IUD lot #: [id number] Exp date: 07/2023 UNIVERSAL PROTOCOL / SAFETY CHECKLIST Procedure to be Performed: Mirena IUD insertion Sign In: A Moment of CARE was completed. Personnel directly involved with the procedure wore the appropriate PPE (Personal Protective Equipment). Patient/Surrogate Stated/Verified: PATIENT VERIFIED(optional for EMERGENT procedures): Patient name, Date of , Relevant allergies and The intended procedure Time Out Communication: Intended patient and procedure match the source documents. Consent documented and matches the intended procedure. Implant(s) inserted: Correct implant(s) confirmed including size and side. and Expiration date(s) reviewed. Sign Out: SIGN OUT (optional for EMERGENT procedures): No specimen collected. All instruments, equipment, possible retained foreign bodies accounted for. Post-procedure follow-up management communicated and Plan of Care Visit completed when applicable. Mackenzie Hess M.D. The uterus sounded to 10 cm and the uterus is Retroverted.. After prepping the cervix with betadine and using sterile technique, the Mirena IUD was inserted without difficulty and the string was cut to 2cm from the external os of the cervix. Patient tolerated procedure well. PLAN: Patient was advised to observe for signs and symptoms of infection including but not limited to fever, malodorous vaginal discharge and/or pain. The patient was told to check the string monthly for accurate placement. Bleeding expectations were reviewed. Follow up for next annual exam or sooner as needed. Mackenzie Hess MD [facility] 06-19-2021 Note HNO ID: [id number] Author: Jamaica Lynn RN Service: ? Author Type: ? Type: Progress Notes Filed: 06/19/2021 2:42 PM Note Text: Pre Procedure Assessment: Nav Ross is a 30 year old here for an DENISHA procedure. No LMP recorded. Reason for procedure: Missed Anxiolytic Checklist - Has ride home? Yes Medications: Patient self-administered:oxyCODONE IR (ROXICODONE) 5 mg immediate release tablet. Toradol 60 mg IM - see MAR Blood Type: A positive Hemoglobin: No results found for: HB Rhophylac Administered:No Post Procedure Assessment: Vitals: See Vitals Bleeding:Moderate Pain severity: 0/10 Reviewed discharge instructions. All questions answered. Next appointment scheduled. Patient ambulated accompanied by her . Gait steady. Declined need for wheelchair. Jamaica Lynn RN [facility] 06-19-2021 Note HNO ID: [id number] Author: Mackenzie Hess MD Service: ? Author Type: Physician Type: Progress Notes Filed: 06/19/2021 2:42 PM Note Text: UNIVERSAL PROTOCOL / SAFETY CHECKLIST Procedure to be Performed: IPAS Sign In: A Moment of CARE was completed. Personnel directly involved with the procedure wore the appropriate PPE (Personal Protective Equipment). Patient/Surrogate Stated/Verified: PATIENT VERIFIED(optional for EMERGENT procedures): Patient name, Date of , Relevant allergies and The intended procedure Time Out Communication: Intended patient and procedure match the source documents. Consent documented and matches the intended procedure. Relevant labs, photos, and/or imaging studies have been reviewed. Medications required for procedure verified. No implant(s) inserted. Sign Out: SIGN OUT (optional for EMERGENT procedures): All specimen containers correctly labeled. All instruments, equipment, possible retained foreign bodies accounted for. Post-procedure follow-up management communicated and Plan of Care Visit completed when applicable. Procedure note: Speculum was placed in the vagina. After prepping the cervix with betadine paracervical block was performed using 7cc of 1% lidocaine with 1:100,000 epi. Cervix was grasped with single tooth tenaculum. Cervix was dilated. Using sterile technique, the Manual Vacuum Aspiration device with size 6 cannula was inserted into the uterus and contents were evacuated. Post-procedure ultrasound confirmed no retained tissue. Post-procedure vital signs were obtained and stable Specimen was sent to pathology Patient tolerated procedure well. PLAN: Patient was advised to observe for signs and symptoms of infection including but not limited to fever, malodorous vaginal discharge and/or pain. Bleeding expectations were reviewed. Follow up: next week for IUD insertion. Mackenzie Hess MD [facility] 06-18-2021 Note HNO ID: [id number] Author: Mackenzie Hess MD Service: ? Author Type: Physician Type: Progress Notes Filed: 06/19/2021 1:47 PM Note Text: Nav Ross is a 30 year old female who presents for problem visit for miscarriage. She conceived on Mirena, Mirena no longer intrauterine. She had some cramping and bleeding on 06/16 and was seen in ED. F/u today for formal US. ED and US records reviewed. C/w 5-6 week size SAB, approx 7 weeks based on best clinical estimate. OB History No obstetric history on file. [employer] History LMP: Age at Menarche: Age at First : Age at Menopause: [employer] History Comments: Sexual Activity: No sexual activity data on record; No partner data on record Contraception: No contraception data on record PAST MEDICAL HISTORY Diagnosis Date - NEGATIVE MEDICAL HISTORY No past surgical history on file. FAMILY HISTORY Problem Relation Age of Onset - other (Other) Father stroke Social History Tobacco Use - Smoking status: Never Smoker - Smokeless tobacco: Never Used Substance Use Topics - Alcohol use: No - Drug use: Not on file No current outpatient medications on file. No current facility-administered medications for this visit. Allergies As of Date: 06/18/2021 Allergen Noted Reaction AMOXICILLIN 06/24/2016 Intolerance Fully Assessed 06/18/2021 Allergies and current medication updated:Yes EXAM: BP 120/82 Wt 179 lb 3.2 oz (81.3kg) GENERAL: pleasant, female in no apparent distress ASSESSMENT AND PLAN: SAB- recheck quant US and ED records, cbc and HCG levels reviewed R/B/A to expectant vs medical vs surgical management reviewed. Would like IPAS in office. Prophylactic doxy ordered. Questions answered. Quant did [place] records [place] 30528 to [address] confirming SAB. She is uncertain about contraception plans in near future. Medical Decision Making: Problems: Moderate: New problem with uncertain prognosis Data: Unique source(s) for external note(s) reviewed: 3+ Unique test result(s) reviewed: 1 Risk: Moderate: Decision on minor surgery w/ risk factors Medical Decision Making Level: 4 - Moderate Mackenzie Hess MD [facility] 06-17-2021 Note HNO ID: [id number] Author: Nabila Boyce APRN.[facility] Service: ? Author Type: Nylon Operator Type: Progress Notes Filed: 06/17/2021 4:49 PM Note Text: Nav Ross is a 30 year old female who presents for problem visit for miscarriage HPI: presents today with increased vaginal bleeding, cramping, and follow up from emergency room visit for miscarriage. Seen on 06/10/21 for vaginal bleeding, viable single IUP seen at 6w1d. Started bleeding yesterday morning and and increased more than her normal period. Seen in ED in evening around 4 pm. Bleeding and cramping increased. Has been passing small to medium size clots throughout the week. Pain today is improved. Rating pain 4-5/10, prior was 8/10. Currently denies any dizziness, excessive bleeding or pain. History of miscarriage at 12 weeks, had DANDC OB History No obstetric history on file. [employer] History LMP: Age at Menarche: Age at First : Age at Menopause: [employer] History Comments: Sexual Activity: No sexual activity data on record; No partner data on record Contraception: No contraception data on record PAST MEDICAL HISTORY Diagnosis Date - NEGATIVE MEDICAL HISTORY No past surgical history on file. FAMILY HISTORY Problem Relation Age of Onset - other (Other) Father stroke Social History Tobacco Use - Smoking status: Never Smoker - Smokeless tobacco: Never Used Substance Use Topics - Alcohol use: No - Drug use: Not on file No current outpatient medications on file. No current facility-administered medications for this visit. Allergies As of Date: 06/17/2021 Allergen Noted Reaction AMOXICILLIN 06/24/2016 Intolerance Fully Assessed 06/17/2021 REVIEW OF SYSTEMS Abdomen: No bloating, early satiety, indigestion, or increased flatulence. No nausea, vomiting, diarrhea, or constipation. Bladder: No dysuria, gross hematuria, urinary frequency, urinary urgency, or incontinence. Breast: No breast lumps, nipple d/c, overlying skin changes, redness or skin retraction. Expanded ROS: N/A Allergies and current medication updated:Yes EXAM: BP 120/78 Wt 179 lb (81.2kg) GENERAL: pleasant, female. Tearful HEENT: Normocephalic and atraumatic NECK: Supple and full range of motion CHEST: Normal inspiratory effort ABDOMEN: soft, non-tender and no masses PELVIC: deferred BIMANUAL: deferred NEURO: alert and oriented x3,exam grossly non-focal EXTREMITIES: normal 06/10/21: US OB TV Single living IUP, EGA 6w1d Serum quant hCG 13,185 06/16/21: US OB TV Single IUP, slightly irregular shape, mean sac diameter 1.4cm, EGA 6w1d. No FHT detected. Impression: Findings compatible with failed Serum hcg 13,002 ASSESSMENT AND PLAN: 1. Missed - ICD9: 632, ICD10: O02.1 - OBSTETRIC ULTRASOUND WH - Reviewed with patient missed and nonviable . Reviewed management options for missed . Type and screen A positive Early failure was discussed with the patient. She was counseled regarding expectant, medical and surgical management options. Risks and benefits of each were discussed. Patient would like [facility]. Will get formal US tomorrow and follow up with physician after visit to discuss. Bleeding precautions reviewed and when to call. Emotional support provided. 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 She was a transfer from [facility] ED, where she had severe Bps 180s/100s and was treated with IV labetalol as well as mag sulfate. She received a dose of BMZ there aswell. After arriving to L&D, she received her second dose of BMZ. She initially had only mild range Bps, but then began having severe Bps and required further acute treatment. The decision was made to restart mag sulfate and induce for PreEwSF. Her labor course was augmented with fulton bulb, cytotec, pitocin, and AROM. She made change to 10cm Intrapartum Course: uncomplicated 31w6d PC-01 Indications for Delivery: Was patient delivered between 37w0d - 31l3fpnbks? NO Surgical Operations & Procedures: Delivery Type: spontaneous vaginal Anesthesia: Epidural anesthesia Laceration(s): none Delivery Complications: none Pertinent Findings & Procedures: Information for the patient's : Misael Ross Nav [[id number]] male Weight: 4 lb 5.1 oz (1.96 kg) Apgars: Information for the patient's : Misael Ross [[id number]] One Minute : 7 Five Minute : 8 Course: Titration of BP meds : male Blood Type/Rh: A POS Antibody Screen: Antibody Screen Date Value Ref Range Status 08/18/2019 NEG NA Final Rubella: No results found for: RUBELLAIGG Contraception: planning IUD PP appt mirena : yes VTE Prophylaxis: Not Indicated Meds: Nav Ross Home Medication Instructions MICHAEL:[id number] Printed on:08/24/19 0932 Medication Information ibuprofen (ADVIL;MOTRIN) 600 MG tablet Take 1 tablet by mouth every 6 hours as needed for Pain labetalol (NORMODYNE) 200 MG tablet Take 4 tablets by mouth every 8 hours NIFEdipine (PROCARDIA XL) 90 MG extended release tablet Take 1 tablet by mouth daily Vit w/Hp-Lwonygncz-PK (PNV PO) Take 1 tablet by mouth daily Activity: Activity as tolerated Diet: Regular diet Follow up Care: Follow up appointment in 72 hours with OBGYN Condition on discharge: Stable Discharge to: Home Discharge date: 08/24/2019 Discharge Dx: Preeclampsia Vaginal DElivery Instructions to Patient:: Pelvic Rest (no intercourse, tampons, douching, etc) x 6 weeks Specific discharge instruction printed Preeclampsia, severe, third trimester [O14.13] Patient Active Problem List Diagnosis Preeclampsia, severe, third trimester 31 weeks gestation of Comments: Home care, Follow-up care and control were reviewed. Signs and symptoms of mastitis and Post Depression were reviewed. The patient is to notify her physician if any of these occur. Chi Khoury DO on 08/24/2019 at 9:32 AM documented in this encounter Discharge Instructions * Instructions* Chi Khoury DO - 08/24/2019 After Your Delivery (the Period): Your Care Instructions Congratulations on the of your baby. Like , the period can be a time of excitement, martin, and exhaustion. You may look at your wondrous little baby and feel happy. You may also be overwhelmed by your new sleep hours and new responsibilities. In these first weeks after delivery, try to take good care of yourself. It may take 4 to 6 weeks to feel like yourself again, and possibly longer if you had a . You will likely feel very tired for several weeks. Your dayswill be full of ups and downs, but lots of martin as well. FOLLOW-UP: Your follow-up care is a virgen part of your treatment and safety. Follow-up with your OB doctor in 4 weeks or as specified by your physician. Be sure to make and go to all appointments, and call your doctor if you are having problems. It's also a good idea to know your test results and keep a list ofthe medicines you take. BLEEDING Vaginal bleeding will decrease in amount over the next few weeks. Bleeding may picking crew supervisor and then decrease again around 7-10 days . Use pads instead of tampons for the bloody flow that may last as long as 2 weeks. You will notice that as your activity increases, your flow may increase. Call your doctor if you are saturating one maxi pad in an hour & passing large clots for 3 hours or more. ACTIVITY NO SEXUAL activity for 6 weeks or until advised by your doctor; Nothing in vagina: intercourse, tampons, or douching. Showering is okay; NO tub baths, swimming, or hot tubs. Gradually increase your activity. Resume exercise regimen only after advice by your doctor. Avoid lifting anything heavier than your baby or a gallon of milk for six weeks. Avoid driving 1 week for vaginal delivery and 2 weeks for section, or longer if you are onprescription pain medicine unless otherwise instructed by your doctor. Rise slowly from a lying to sitting and then a standing position. Climb stairs carefully. Use caution when carrying your baby up and down the stairs. You may feel tired or have a lack of energy. You may continue your vitamin to replenish nutrients post delivery. Nap when baby naps to catch up on sleep. EMOTIONS You may feel mcclendon, sad, teary, & overwhelmed for the first 2 weeks ; however, feelings of post depression may occur any time within the first year after delivery. Contact your OB provider if you feel you may be showing signs of depression, or have thoughts of harming yourself or your infant. If will not stop crying, contact another adult for help or place infant in their crib on their back and take a break. NEVER shake your . WOUND CARE For Vaginal Delivery: Shower daily, and cleanse your perineum (bottom) with mild soap from front to Back. Use the plasticsquirt bottle until bleeding stops each time you use the restroom instead of wiping with toilet paper. Ease soreness of hemorrhoids and the area between your vagina and rectum with ice compresses or witch evan pads. If used, stitches will dissolve in 4-6 weeks on their own. You may use a sitz bath or soak in a clean tub with drain open and water running for comfort. Kegel exercises will help restore bladder control. To do these tighten your muscles as if you were stopping your urine flow. Hold for a few seconds and then relax. Do these throughout the day. For Section Delivery: Keep your incision clean and dry. If you had steri-strips you may remove these once they start falling off. If you have eden they need to be removed 3-10 days after delivery. If you have steri-strips, remove after 7 - 10 days. Do not wear clothing that irritates the incision line. If your incision in in a crease that is not dry, use a hair-dryer to dry the area 3 times a day. If you develop fever, shaking chills, redness, swelling, drainage or discharge from your wound, or if your wound looks like it's coming apart call your doctor immediately. BREAST CARE If you develop a warm, red, tender area on your breast or develop a fever contact your doctor. For moms: If you become engorged, feeding may be more difficult or painful for 1-2 days. You may find it helpful to hand express some milk so that the infant can latch on more easily or ease soreness with wet,warm washcloths. While , continue to take your vitamins as directed by your doctor. For non- moms: You may apply ice packs to your breasts over you bra for twenty minutes at a time for comfort. Cabbage leaves may be applied to breasts, replace when wilted. Avoid stimulation to your breasts, when showering allow the water to strike your back not your breasts. Do not express milk or your body will make more. Wear a good fitting bra until your milk dries, such as a sports bra. DIET & CONSTIPATION Eat a well balanced diet focusing on foods high in fiber and protein such as: whole grain cereals and breads, fruits and vegetables and legumes (eg, beans, lentils) Drink 8-10 glasses of fluids daily, especially water. To avoid constipation you may take a mild jecr-xms-soequyu stool softener (such as colace) as recommended by your doctor. SWELLING Try to keep your legs elevated when you are sitting or lying down. Stay hydrated and take walks. BABY Babies sleep safest on their back in a crib without bumpers, blankets or stuffed animals. Do not sleep with your baby in your bed or the couch. Do not expose baby to smoke, this can increase risks of asthma and sudden syndrome. Ifyou or someone around baby smokes have them change their shirt and wash any facial hair before holding baby. Do not smoke inside the house and change the ventilation filters in the house before bringing baby home. WHEN TO CALL THE DOCTOR Signs of infection, including fever and chills Increased bleeding: soaking more than one sanitary pad an hour Wounds that become red, swollen or drain pus Vaginal discharge that smells foul New pain, swelling, or tenderness in your legs Pain that you can't control with the medications you've been given Pain, burning, urgency or frequency of urination, or persistent bleeding in the urine Cough, shortness of breath, or chest pain Depression, suicidal thoughts, or feelings of harming your baby Breasts that are hot, red and accompanied by fever Any cracking or bleeding from the nipple or areola (the dark-colored area of the breast) You may have been given a magnet like this: If so, we encourage you to use it on your refrigerator as a reminder of when to call the doctor. In case of an emergency, call 911 immediately. If Covid-19 + or PUI ? A healthy caregiver should be identified to care for the baby at home. ? Mothers with confirmed or suspected COVID-19 infection at the time of discharge should continue to take appropriate droplet precautions once home until you are free of symptoms, including strict hand hygiene and cough etiquette, maintaining a minimum distance of 6 feet from the and/or indiv iduals at home whenever possible, and practicing appropriate hand hygiene/PPE if required to care for the . ? You should plan with your provider about cessation of isolation procedures based on CDC guidelines; Symptom free, no fever, without antipyretics is a reasonable guide. Steps to help prevent the spread of COVID-19 if you are sick SOURCE - https://www.cdc.gov/coronavirus/2019-ncov/about/zldbc-bfbx-bpvr.html Stay home except to get medical care ; Stay home: People who are mildly ill with COVID-19 are able to isolate at home during their illness. You should restrict activities outside your home, except for getting medical care. ; Avoid public areas: Do not go to work, school, or public areas. ; Avoid public transportation: Avoid using public transportation, ride-sharing, or taxis. ; Separate yourself from other people and animals in your home ; Stay away from others: As much as possible, you should stay in a specific room and away from other people in your home. Also, you should use a separate bathroom, if available. ; Limit contact with pets & animals: You should restrict contact with pets and other animals while you are sick with COVID-19, just like you would around other people. Although there have not been reports of pets or other animals becoming sick with COVID-19, it is still recommended that people sick with COVID-19 limit contact with animals until more information is known about the virus. ; When possible, have another member of your household care for your animals while you are sick. Ifyou are sick with COVID-19, avoid contact with your pet, including petting, snuggling, being kissedor licked, and sharing food. If you must care for your pet or be around animals while you are sick,wash your hands before and after you interact with pets and wear a facemask. See COVID-19 and Animals for more information. Other considerations ? The ill person should eat/be fed in their room if possible. Non-disposable fast food shift supervisor items used should be handled with gloves and washed with hot water or in a mushroom cutter. Clean hands after handling used fast food shift supervisor items. ? If possible, dedicate a lined trash can for the ill person. Use gloves when removing garbage bags, handling, and disposing of trash. Wash hands after handling or disposing of trash. ? Consider consulting with your local health department about trash disposal guidance if available. Coronavirus (COVID-19): Care Instructions Overview The coronavirus disease (COVID-19) is caused by a virus. It causes a fever, a cough, and shortness of breath. It mainly spreads ttsmbj-yj-mdmxqc through droplets from coughing and sneezing. The virusalso can spread when people are in close contact with someone who is infected. Most people have mild symptoms and can take care of themselves at home. If their symptoms get worse, they may need care in a hospital. There is no medicine to fight the virus. It's important to not spread the virus to others. You need to isolate yourself while you are sick. Your doctor will tell you when you no longer need to be isolated. Leave your home only if you need to get medical care. Follow-up care is a virgen part of your treatment and safety. Be sure to make and go to all appointments, and call your doctor if you are having problems. It's also a good idea to know your test resultsand keep a list of the medicines you take. How can you care for yourself at home? Get extra rest. It can help you feel better. Drink plenty of fluids. This helps replace fluids lost from fever. Fluids also help ease a scratchythroat. Water, soup, fruit juice, and hot tea with lemon are good choices. Take acetaminophen (such as Tylenol) to reduce a fever. It may also help with muscle aches. Read and follow all instructions on the label. Sponge your body with lukewarm water to help with fever. Don't use cold water or ice. Use petroleum jelly on sore skin. This can help if the skin around your nose and lips becomes sore from rubbing a lot with tissues. Tips for isolation Wear a face mask, if you have one, when you are around other people. It can help stop the spread ofthe virus when you cough or sneeze. Limit contact with people in your home. If possible, stay in a separate bedroom and use a separate bathroom. Avoid contact with pets and other animals. Cover your mouth and nose with a tissue when you cough or sneeze. Then throw it in the trash right away. Wash your hands often, especially after you cough or sneeze. Use soap and water, and scrub for at least 20 seconds. If soap and water aren't available, use an alcohol-based hand personal consultant. Don't share personal household items. These include bedding, towels, cups and glasses, and eating utensils. Clean and disinfect your home every day. Use household motorized squad sergeant and disinfectant wipes or sprays. Take special care to clean things that you grab with your hands. These include doorknobs, remote controls, phones, and handles on your refrigerator and microwave. And don't forget countertops, tabletops, bathrooms, and computer keyboards. When should you call for help? Call 911 anytime you think you may need emergency care. For example, call if you have life-threatening symptoms, such as: You have severe trouble breathing. (You can't talk at all.) You have constant chest pain or pressure. You are severely dizzy or lightheaded. You are confused or can't think clearly. Your face and lips have a blue color. You pass out (lose consciousness) or are very hard to wake up. Call your doctor now or seek immediate medical care if: You have moderate trouble breathing. (You can't speak a full sentence.) You are coughing up blood (more than about 1 teaspoon). You have signs of low blood pressure. These include feeling lightheaded; being too weak to stand; and having cold, pale, clammy skin. Watch closely for changes in your health, and be sure to contact your doctor if: Your symptoms get worse. You are not getting better as expected. Call before you go to the doctor's office. Follow their instructions. And wear a face mask if you have one. Current as of: July 20, 2019 Content Version: 12.4 [employer]. Care instructions adapted under license by your healthcare professional. If you have questions about a medical condition or this instruction, always ask your healthcare professional. [employer] disclaims any warranty or liability for your use of this information. Information for Household Members and Caregivers of Someone who is Sick Call ahead before visiting your doctor Call ahead: If you have a medical appointment, call the healthcare provider and tell them that you have or may have COVID-19. This will help the healthcare provider's office take steps to keep other people from getting infected or exposed. Wear a facemask if you are sick ; If you are sick: You should wear a facemask when you are around other people (e.g., sharing a room or vehicle) or pets and before you enter a healthcare provider's office. ; If you are caring for others: If the person who is sick is not able to wear a facemask (for example, because it causes trouble breathing), then people who live with the person who is sick should not stay in the same room with them, or they should wear a facemask if they enter a room with the person who is sick. Cover your coughs and sneezes ; Cover: Cover your mouth and nose with a tissue when you cough or sneeze. ; Dispose: Throw used tissues in a lined trash can. ; Wash hands: Immediately wash your hands with soap and water for at least 20 seconds or, if soap and water are not available, clean your hands with an alcohol-based hand personal consultant that contains at least 60% alcohol. Clean your hands often ; Wash hands: Wash your hands often with soap and water for at least 20 seconds, especially after blowing your nose, coughing, or sneezing; going to the bathroom; and before eating or preparing food. ; Hand personal consultant: If soap and water are not readily available, use an alcohol- based hand personal consultant with at least 60% alcohol, covering all surfaces of your hands and rubbing them together until they feel dry. ; Soap and water: Soap and water are the best option if hands are visibly dirty. ; Avoid touching: Avoid touching your eyes, nose, and mouth with unwashed hands. Handwashing Tips ; Wet your hands with clean, running water (warm or cold), turn off the tap, and apply soap. ; Lather your hands by rubbing them together with the soap. Lather the backs of your hands, betweenyour fingers, and under your nails. ; Scrub your hands for at least 20 seconds. Need a timer? Hum the Happy Birthday song from beginning to end twice. ; Rinse your hands well under clean, running water. ; Dry your hands using a clean towel or air dry them. Avoid sharing personal household items ; Do not share: You should not share dishes, drinking glasses, cups, eating utensils, towels, or bedding with other people or pets in your home. ; Wash thoroughly after use: After using these items, they should be washed thoroughly with soap and water. Clean all high-touch surfaces everyday ; Clean and disinfect: Practice routine cleaning of high touch surfaces. ; High touch surfaces include counters, tabletops, doorknobs, bathroom fixtures, toilets, phones, keyboards, tablets, and bedside tables. ; Disinfect areas with bodily fluids: Also, clean any surfaces that may have blood, stool, or body fluids on them. ; Household motorized squad sergeant: Use a household cleaning spray or wipe, according to the label instructions. Labels contain instructions for safe and effective use of the cleaning product including precautionsyou should take when applying the product, such as wearing gloves and making sure you have good ventilation during use of the product. Monitor your symptoms Seek medical attention: Seek prompt medical attention if your illness is worsening (e.g., difficulty breathing). ; Call your doctor: Before seeking care, call your healthcare provider and tell them that you have,or are being evaluated for, COVID-19. ; Wear a facemask when sick: Put on a facemask before you enter the facility. These steps will helpthe healthcare provider's office to keep other people in the office or waiting room from getting infected or exposed. ; Alert health department: Ask your healthcare provider to call the local or state health department. Persons who are placed under active monitoring or facilitated self-monitoring should follow instructions provided by their local health department or occupational health professionals, as appropriate. ; Call 911 if you have a medical emergency: If you have a medical emergency and need to call 911, notify the dispatch personnel that you have, or are being evaluated for COVID-19. If possible, put heaven facemask before emergency medical services arrive. General Recommendations for Routine Cleaning and Disinfection of Households Community members can practice routine cleaning of frequently touched surfaces (for example: tables, doorknobs, light switches, handles, desks, toilets, faucets, sinks) with household motorized squad sergeant and EPA-registered disinfectants that are appropriate for the surface, following label instructions. Labels contain instructions for safe and effective use of the cleaning product including precautions you should take when applying the product, such as wearing gloves and making sure you have good ventilation during use of the product. These guidelines are focused on household settings and are meant for the general public. ? Cleaning refers to the removal of germs, dirt, and impurities from surfaces. Cleaning does not kill germs, but by removing them, it lowers their numbers and the risk of spreading infection. ? Disinfecting refers to using chemicals to kill germs on surfaces. This process does not necessarily clean dirty surfaces or remove germs, but by killing germs on a surface after cleaning, it can further lower the risk of spreading infection. General Recommendations for Cleaning and Disinfection of Households with People Isolated in Home Care - Confirmed or suspected COVID 19 ? Household members should educate themselves about COVID-19 symptoms and preventing the spread of COVID-19 in homes. ? Clean and disinfect high-touch surfaces daily in household common areas (e.g. tables, hard-backedchairs, doorknobs, light switches, remotes, handles, desks, toilets, sinks) o In the bedroom/bathroom dedicated for an ill person: consider reducing cleaning frequency to as-needed (e.g., soiled items and surfaces) to avoid unnecessary contact with the ill person. ? As much as possible, an ill person should stay in a specific room and away from other people in their home. ? The caregiver can provide personal cleaning supplies for an ill person's room and bathroom, unless the room is occupied by child or another person for whom such supplies would not be appropriate. These supplies include tissues, paper towels, motorized squad sergeant and EPA-registered disinfectants (see list link at CDC website). ? If a separate bathroom is not available, the bathroom should be cleaned and disinfected after each use by an ill person. If this is not possible, the caregiver should wait as long as practical after use by an ill person to clean and disinfect the high-touch surfaces. How to clean and disinfect: Hard Surfaces ? Wear disposable gloves when cleaning and disinfecting surfaces. Gloves should be discarded after each cleaning. If reusable gloves are used, those gloves should be dedicated for cleaning and disinfection of surfaces for COVID-19 and should not be used for other purposes. Consult the fabric separator operator's instructions for cleaning and disinfection products used. Clean hands immediately after gloves areremoved. ? If surfaces are dirty, they should be cleaned using a detergent or soap and water prior to disinfection. ? For disinfection, diluted household bleach solutions, alcohol solutions with at least 70% alcohol, and most common EPA-registered household disinfectants should be effective. o Diluted household bleach solutions can be used if appropriate for the surface. Follow fabric separator operator's instructions for application and proper ventilation. Check to ensure the product is not past itsexpiration date. Never mix household bleach with ammonia or any other cleanser. Unexpired householdbleach will be effective against coronaviruses when properly diluted. ? Prepare a bleach solution by mixing: ? 5 tablespoons (1/3rd cup) bleach per gallon of water or ? 4 teaspoons bleach per quart of water o Products with EPA-approved emerging viral pathogens [facility] iconexternal icon are expected to be effective against COVID-19 based on data for harder to kill viruses. Follow the fabric separator operator's instructions for all cleaning and disinfection products (e.g., concentration, application method and contact time, etc.). Soft (porous) surfaces such as carpeted floor, rugs, and drapes Remove visible contamination if present and clean with appropriate motorized squad sergeant indicated for use on these surfaces. After cleaning: Launder items as appropriate in accordance with the fabric separator operator's instructions. If possible, launder items using the warmest appropriate water setting for the items and dry items completely, or Clothing, towels, linens and other items that go in the laundry ? Wear disposable gloves when handling dirty laundry from an ill person and then discard after eachuse. If using reusable gloves, those gloves should be dedicated for cleaning and disinfection of surfaces for COVID-19 and should not be used for other household purposes. Clean hands immediately after gloves are removed. o If no gloves are used when handling dirty laundry, be sure to wash hands afterwards. o If possible, do not shake dirty laundry. This will minimize the possibility of dispersing virus through the air. o Launder items as appropriate in accordance with the fabric separator operator's instructions. If possible, launder items using the warmest appropriate water setting for the items and dry items completely. Dirtylaundry from an ill person can be washed with other people's items. o Clean and disinfect clothes hampers according to guidance above for surfaces. If possible, consider placing a bag sorter that is either disposable (can be thrown away) or can be laundered. [facility] has a list of EPA approved cleaning products on their website - https://www.cdc.gov/coronavirus/ 2019-ncov/community/home/cleaning-disinfection.html https://www.Greendizer/Mctvg-Oeknijssmie-Emmhkbfu-Products-List.pdf Grocery Stores with delivery and picking crew supervisor services: [employer]: Free picking crew supervisor at locations Delivery is $12.95 a month Website - [employer] [place]: Type Disk Quality Control Supervisor $2.95 (1st order is free) Delivery is $14.95 Website [employer] [place]: melter supervisor oxygen furnace is free Delivery is $5.95 [facility]: melter supervisor oxygen furnace is $4.95 Delivery is $9.95 [employer]: melter supervisor oxygen furnace is $4.95 Delivery is $9.95 [employer]: Can be ordered for delivery and picking crew supervisor with [employer] Website - [employer]: Free deliver for first 3 orders of $35 or more Website [facility] Will deliver from [employer], [employer], [employer], and [employer]. Annual membership is $99 Monthly membership is $14 anaya Information for all patients regarding Covid-19 Learning About Coronavirus (COVID-19) Coronavirus (COVID-19): Overview What is coronavirus (COVID-19)? The coronavirus disease (COVID-19) is caused by a virus. It is an illness that was first found in [facility], in March 2019. It has since spread worldwide. The virus can cause fever, cough, and trouble breathing. In severe cases, it can cause pneumonia and make it hard to breathe without help. It can cause . Coronaviruses are a large group of viruses. They cause the common cold. They also cause more serious illnesses like Middle East respiratory syndrome (MERS) and severe acute respiratory syndrome (SARS). COVID-19 is caused by a novel coronavirus. That means it's a new type that has not been seen in people before. This virus spreads [id number] through droplets from coughing and sneezing. It can also spreadwhen you are close to someone who is infected. And it can spread when you touch something that has the virus on it, such as a doorknob or a tabletop. What can you do to protect yourself from coronavirus (COVID-19)? The best way to protect yourself from getting sick is to: Avoid areas where there is an outbreak. Avoid contact with people who may be infected. Wash your hands often with soap or alcohol-based hand sanitizers. Avoid crowds and try to stay at least 6 feet away from other people. Wash your hands often, especially after you cough or sneeze. Use soap and water, and scrub for at least 20 seconds. If soap and water aren't available, use an alcohol-based hand personal consultant. Avoid touching your mouth, nose, and eyes. What can you do to avoid spreading the virus to others? To help avoid spreading the virus to others: Cover your mouth with a tissue when you cough or sneeze. Then throw the tissue in the trash. Wear a face mask if in public areas. Use a disinfectant to clean things that you touch often. Stay home if you are sick or have been exposed to the virus. Don't go to school, work, or public areas. And don't use public transportation. If you are sick: ? Leave your home only if you need to get medical care. But call the doctor's office first so they know you're coming. And wear a face mask, if you have one. ? If you have a face mask, wear it whenever you're around other people. It can help stop the spreadof the virus when you cough or sneeze. ? Clean and disinfect your home every day. Use household motorized squad sergeant and disinfectant wipes or sprays.Take special care to clean things that you grab with your hands. These include doorknobs, remote controls, phones, and handles on your refrigerator and microwave. And don't forget countertops, tabletops, bathrooms, and computer keyboards. When to call for help Call 911 anytime you think you may need emergency care. For example, call if: You have severe trouble breathing. (You can't talk at all.) You have constant chest pain or pressure. You are severely dizzy or lightheaded. You are confused or can't think clearly. Your face and lips have a blue color. You pass out (lose consciousness) or are very hard to wake up. Call your doctor now if you develop symptoms such as: Shortness of breath. Fever. Cough. If you need to get care, call ahead to the doctor's office for instructions before you go. Make sure you wear a face mask, if you have one, to prevent exposing other people to the virus. Where can you get the latest information? The following health organizations are tracking and studying this virus. Their websites contain themost up-to-date information. You'll also learn what to do if you think you may have been exposed tothe virus. U.S. Centers for Disease Control and Prevention (CDC): The CDC provides updated news about the disease and travel advice. The website also tells you how to prevent the spread of infection. www.cdc.gov World Health Organization (WHO): WHO offers information about the virus outbreaks. WHO also has travel advice. www.who.int Current as of: July 20, 2019 Content Version: 12.4 [employer]. Care instructions adapted under license by your healthcare professional. If you have questions about a medical condition or this instruction, always ask your healthcare professional. [employer] disclaims any warranty or liability for your use of this information. documented in this encounter History of Present Illness * Chi Khoury, - 08/24/2019 6:13 AM EDT POST DAY # 3 Nav Ross is a 29 y.o. female Attempted twice to see patient. Patient not in room so was unable to interview. Her was complicated by: Patient Active Problem List Diagnosis Preeclampsia, severe, third trimester 31 weeks gestation of Vital Signs: Vitals: 08/23/19 1937 08/23/19 2157 08/23/19 2257 08/24/19 0335 BP: (!) 150/95 (!) 142/89 (!) 141/88 136/85 Pulse: 79 68 78 81 Resp: 18 Temp: 98.1 F (36.7 C) TempSrc: Temporal Temporal Temporal Temporal SpO2: 98% Weight: Height: Assessment and Plan: Nav Ross is a PPD # 3 s/p - Doing well, VSS - male - Encourage Ambulation 1. Contraception: Per Private Attending 2. DVT prophylaxis: None 3. Antihypertensive medication: labetalol 800mg TID and procardia 90mg daily 4. Disposition: D/C home today per private attending discretion PreEwSF - Transfer from outside hospital with severe BPs requiring acute treatment - BP remains mild range - Required multiple rounds of acute treatment ultimately underwent induction of labor at 31w6d - Medications titrated to labetalol 800mg TID and procardia 90mg daily - Mag sulfate off - Pt normotensive to mild range , BP appears less labile with new medication titration I reviewed and agree with the care provided by the resident/CNM/NIMCO during the visit including the patient's medical history, the resident's findings in the physical exam, patient's diagnosis and treatment plan. * Nikky Mayberry MD - 08/23/2019 12:24 PM EDT Severe range BP noted at 9AM this morning with no repeat BP. BP meds titrated to Lab 800 q8h. One time 400 Lab given. Called RN and instructed to obtain repeat BP. Patient is in SCN and will be contacted. RN to page with repeat vitals Severe range BP 162/97. Reviewed BPs with Dr. Sullivan. Will give Pro XL 30 once and increase dose to 90mg daily starting tomorrow. Next dose Labetalol 800 due at 1400. Plan for repeat BP in 1hr. RN notified of plan of care. BP mild range. Will continue to closely monitor vitals * Tricia Núñez IBCLC - 08/23/2019 9:29 AM EDT Observed pt pumping to assure proper fit for flanges. Small size is appropriate but pt advised to keep nipple centered to prevent soreness. Answered questions about pump settings. * Laith Dao DO - 08/23/2019 6:13 AM EDT POST DAY # 2 Nav Ross is a 29 y.o. female Her was complicated by: Patient Active Problem List Diagnosis Preeclampsia, severe, third trimester 31 weeks gestation of Attempted to see patient on two separate occasions and patient not in room Vital Signs: Vitals: 08/22/19 1628 08/22/19 1933 08/23/19 0027 08/23/19 0444 BP: (!) 143/90 (!) 141/98 (!) 144/84 (!) 153/100 Pulse: 77 91 87 64 Resp: 16 15 15 15 Temp: 98.2 F (36.8 C) 98 F (36.7 C) 98 F (36.7 C) TempSrc: Temporal Temporal Temporal Temporal SpO2: 97% 97% 98% Weight: Height: Assessment and Plan: Nav Ross is a PPD # 2 s/p - Doing well, VSS - male - Encourage Ambulation 1. Contraception: Per Private Attending 2. DVT prophylaxis: None 3. Antihypertensive medication: Procardia 60 and labetalol 400 TID Disposition: [facility] PreEwSF - Transfer from outside hospital with severe BPs requiring acute treatment - BP remains mild range - Required multiple rounds of acute treatment ultimately underwent induction of labor at 31w6d - Started on 60mg Procardia XL and 400mg labetalol q8h - Mag sulfate off yesterday - Pt normotensive to mild range - Asymptomatic NDING NOTE: I personally saw and evaluated the patient. I reviewed the care provided by the resident including the patient's medical history, physical exam findings, diagnosis and treatment plan. I also agree with the resident's documentation unless otherwise indicated: ? preEwSF -- Pt is asymptomatic but BP is labile. BP in severe range earlier today requiring additional 30 mg of Procardia XL to be added. May need to divide Procardia XL into 60 mg BID. Labetalol iscurrently maxed at 800 mg TID. Will keep overnight to continue BP monitoring and d/c tomorrow if stable. --- Total time spent with the patient was 15 minutes, of which greater than 50% of the time was spent counseling and coordinating care. * Britt Hoffman RN - 08/22/2019 1:[address] Khoury of bp 153/103 * Britt Hoffman RN - 08/22/2019 12:00 PM EDT Pt visiting in NICU, unable to obtain vitals * Britt Hoffman RN - 08/22/2019 8:[address] Khoury covering for MFM regarding discontinuing magnesium infusion as pt is post 24 hours delivery. Pt vitals stable, denies LAZARO, blurred vision. Ok to discontinue. Informed pt to informnurse of any of the previous listed symptoms. Will continue to monitor. * Chi Khoury DO - 08/22/2019 6:36 AM EDT POST DAY # 1 Nav Ross is a 29 y.o. female This patient was seen & examined today. Her was complicated by: Patient Active Problem List Diagnosis Preeclampsia, severe, third trimester 31 weeks gestation of Today she is doing well without any chief complaint. Her lochia is light. She denies chest pain, shortness of breath, headache, lightheadedness and blurred vision. She is ambulating well. She is tolerating solids. Vital Signs: Vitals: 08/22/19 0048 08/22/19 0453 08/22/19 0604 08/22/19 0606 BP: (!) 156/97 (!) 142/88 (!) 153/95 Pulse: 78 78 78 76 Resp: 18 20 Temp: 97.8 F (36.6 C) 98.7 F (37.1 C) TempSrc: Temporal Temporal Temporal SpO2: 97% 94% 94% Weight: Height: Physical Exam: General: no apparent distress, alert and cooperative Affect: appropriate Lungs: No increased work of breathing, good air exchange, clear to auscultation bilaterally, no crackles or wheezing Heart: regular rate and rhythm Abdomen: abdomen soft, non-distended, non-tender Fundus: non-tender, normal size, firm, below umbilicus Extremities: no calf tenderness, non edematous Lab: Lab Results Component Value Date HGB 10.5 (L) 08/20/2019 Lab Results Component Value Date HCT 30.8 (L) 08/20/2019 A POS Antibody Screen: Antibody Screen Date Value Ref Range Status 08/18/2019 NEG NA Final No results found for: RUBELLAIGG LABOR DELIVERY ??? SCD's ONLY (labor through ambulation) SCD's PLUS Prophylactic Anticoagulation until discharge SCD's PLUS Prophylactic Anticoagulation for 6 weeks SCD's PLUS Therapeutic Anticoagulation for 6 weeks Vaginal Delivery [] BMI ? 40 kg/m2 Delivery All patients Vaginal Delivery [] BMI ? 40 kg/m2 AND [] Antepartum hospitalization ? 72 hours within the past month Delivery 1 Major Risk Factor: [] BMI ? 35 kg/m2 [] Low Risk Thrombophilia [] PPH+RBCs, IR, or operation [] Infection+Antibiotics [] Antepartum hospitalization ? 72 hours within the past month [] PMH: Sickle Cell, SLE, Cardiac Dz, Active IBD, Active Cancer, Nephrotic Syndrome OR 2 Minor Risk Factors: [] Multiple gestation [] Age > 40 [] PPH ? 1,000cc [] (+)FMH of VTE [] Smoker [] Preeclampsia [] BMI ? 40 kg/m2 AND [] Low Risk Thrombophilia OR ANY OF THE FOLLOWING: [] High Risk Thrombophilia without prior VTE [] Low Risk Thrombophilia with (+)FMH of VTE [] Any single prior VTE ANY OF THE FOLLOWING: [] Already on LMWH/UFH [] Multiple prior VTE [] High Risk Thrombophilia with prior VTE Low Risk Thrombophilia: FVL (heterozygous), Prothrombin (heterozygous), Protein C, Protein S High Risk Thrombophilia: FVL (homozygous), Prothrombin (homozygous), FVL+Prothrombin (heterozygous), Antithrombin III, APLS Assessment/Plan: 1. Nav Ross is a PPD # 1 s/p at 31w6d 2/2 PreEwSF - Doing well, VSS - male infant, in NICU - Encourage ambulation 2. Contraception: per private attending 3. VTE Prophylaxis: Not Indicated 4. Continue current care PreEwSF - Transfer from outside hospital with severe BPs requiring acute treatment - Required multiple rounds of acute treatment ultimately underwent induction of labor at 31w6d - Started on 60mg Procardia XL and 200mg labetalol q8h - Mag sulfate off this morning at 0740 - Pt normotensive to mild range - Asymptomatic Provider's Name: DO Emmanuel Martini MD 08/22/2019, 6:36 AM I reviewed and agree with the care provided by the resident/CNM/NIMCO during the visit including the patient's medical history, the resident's findings in the physical exam, patient's diagnosis and treatment plan. * Kristen Davenport RN - 08/21/2019 11:22 PM EDT RN took patient down in wheelchair to NICU room 12 to see her baby boy. RN helped patient into a chair and NICU nurses assisting patient to hold her baby. NICU nurses will call when patient is ready to return. * Cristina Meyers RD, LD - 08/21/2019 12:17 PM EDT Nutrition Assessment (Low Risk) Type and Reason for Visit: Initial(dietitian assistant referral for HTN ) Nutrition Assessment: Patient assessed for nutritional risk. Deemed to be at low risk at this time.Will continue to monitor for changes in status. no face to face interview was conducted due to COVID precautions, pt is 31w5d admitted for PreEwSF, pt presented to visit with severe range BP into the 180s/100s was sent to [facility] ED and treated with labetalol 20 and 40mg, started on Magnesium sulfate for seizure ppx and given BMZ x1 and transferred to [facility], pt delivered this morning and has since been transferred to unit, pt is currently ordered a General Diet, will refer back to the dietitian assistant to continue to monitor during admit, dietitian is available as needed per re-consult Nutrition Risk Level ? Risk Level: Low Nutrition Intervention: Food and/or Delivery: Continue current diet(monitor need for low sodium diet restrictions to aide in blood pressure management ) Nutrition Education/Counseling/Coordination of Care: Continued Inpatient Monitoring(sign off to dietitian assistant ) Contact Number: pager x [phone] * Brigette Valdez DTR - 08/20/2019 2:32 PM EDT Nutrition rescreen completed. Patient referred to the Dietitian. * Nikky Mayberry MD - 08/20/2019 2:24 PM EDT Persistent severe range BPs despite acute IV treatment with Hydralazine and titration of BP meds. Repeat PreE labs wnl and asymptomatic at this time. Reviewed with Dr. Vigil who recommends proceedingwith delivery at this time. Patient brought to L&D, consent form signed. BSUS cephalic. SVE /-3. Magnesium started for seizure prophylaxis. Additional 10 mg hydralazine given, will await repeat BP. * Emmanuel Escalera MD - 08/20/2019 1:50 PM EDT Pt moved over from admitted for PreEwSF. Transfer from [facility] at that facility requried Lab 20 and lab 40 IV on 4/30 This am had a severe bp requiring acute tx with Hydral 10 mg IV x1 and Procardia 30 mg XL titrated to 60 mg XL. She had another severe bp requiring 10 of Hydralazine IV again. Pt did have another severe bp follwing the 10 of hydral however upon repeat bp it was mild and labetalol was deferred. Magnesium started for prophylaxis. Repeat U/S confimed vtx position. /3per Dr. Randhawa. Consent form signed with patient. Will plan to place fulton bulb and cytotec momentarily. 60cc FB and cytotec placed at this time. Patient tolerated well. Had severe range BP just as beginning to place fulton bulb. Will recheck in 15 mins. Patient remains asymptomatic. Patient with severe range BP and severe range repeat. Will treat acutely at this time with 20 of labetalol and plan to recheck BP 10mins after administration. RN notified. Late note /2 to patient care. Repeat Bp following 20 Of Labetalol iv was severe. Pt was treated again. Cx:60/-3 FHT: Cat II Hackett:Not tracing A/P: 1. IOL-PreEwSF: Making cervical change since fulton bulb out. Cervix very soft and head well-applied but cervix still thick. Will readjust toco to ensure no contractions and plan to place another cytotec if no contractions. BP most recently normotensive. Will start pit due to intermittent cat II. IOL PreEwSF. SVE deferred. Pit at 2, titrate per protocol. BPs recently mild to normal range. Currently on Pro XL 60 and labetalol 200 TID. Magnesium running for seizure prophylaxis. UOP adequate 400cc over 3h. Continue to monitor strict I/Os and symptoms. FHT Cat II for rare lates and periods of minimal variability which resolve with conservative interventions. CCM Cx:/-3, unchanged FHT: Cat I Hackett:q3mins, not tracing well A/P: 1. IOL-PreEwSF: Pit @ 10 mu/min. SVE unchanged and patient intolerant to exams due to irritated cervix from FB. Patient very comfortable and states she is not feeling anything. Intermittent picking up runs of contractions on toco. FHT cat I with periods of minimal variability but no decels andoverall reassuring. Will plan to AROM prior to the next note time and place IUPC to better titrate pitocin. BP most recently normotensive to mild range. UOP adequate on mag. Continue to monitor BP and UOP closely. AROM at this time for small amount of blood-tinged fluid. IUPC placed. Patient tolerated well but cervix is very tender during exams since fulton bulb came out. Only mild bleeding. Will need to be evaluated at time of delivery. 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 Pt complete and +1 station. Will proceed to OR 3. NETWORKING TECHNICIAN notified. -- see delivery note. * Aviva Broderick MD - 08/20/2019 6:34 AM EDT Maternal Medicine Service Resident Progress Note 08/20/2019 6:34 AM Admit Date: 08/18/2019 Hospital Day: 3 Nav Weeman 29 y.o. 31w5d admitted for PreEwSF Patient has been seen and examined. Doing well this morning. No compaints. Denies headache, vision changes, chest pain, shortness of breath, and RUQ pain. Positive movement Negative vaginal bleeding Negative LOF Negative Contractions Physical Exam Vitals: 08/19/19204908/19/19 2055 08/19/19 2326 08/20/19 0414 BP: (!) 148/89 (!) 155/90 Pulse: 83 79 81 69 Resp: 18 Temp: 98.2 F (36.8 C) 96.8 F (36 C) TempSrc: Temporal Temporal SpO2: 98% 94% Weight: Height: Monitoring NST reactive, cat I x2 Labs Recent Labs 08/19/19 0736 WBC 16.3* HGB 11.1* HCT 32.8* PLT 229 Recent Labs 08/19/19 0736 NA 131* K 4.3 CL 106 CO2 17* BUN 11 CREATININE 0.44* GLUCOSE 110* CALCIUM 9.4 Recent Labs 08/19/19 0736 AST 21 ALT 15 BILITOT 0.3 ALKPHOS 145* Imaging Growth US 08/18: [facility] live intrauterine at 31w 4d. Normal growth; EFW 1777 grams, which is at the 47% for this gestational age. The amniotic fluid index is 9.7cm, which is within normal limits. Incidental BPP today is 8/8 Anatomy is extremely limited based upon gestational age Physical Exam Consitutional: well developed, well nourished, no acute distress Head: normocephalic, atraumatic Cardiovascular: regular rate and rhythm, no murmurs/gallops/rubs Pulmonary: clear to auscultation bilaterally, no wheezes/rhonci/rales, normal effort Abdomen: gravid, soft, nontender, nondistended, no rebound/guarding, no fundal tenderness Neuro: alert and orientated x3, responds appropriately to questions Skin: warm and dry, no erythema or rash Extremities: no lower extremity edema, no calf tenderness of swelling Medications Current Facility-Administered Medications Medication Dose Route Frequency Provider Last Rate Last Dose acetaminophen (TYLENOL) tablet 650 mg 650 mg Oral Q4H PRN Aviva Broderick MD sodium chloride flush 0.9 % injection 10 mL 10 mL Intravenous 2 times per day Christine Abbott DO 10 mL at 08/19/192038 sodium chloride flush 0.9 % injection 10 mL 10 mL Intravenous PRN Christine M Milena, DO docusate sodium (COLACE) capsule 100 mg 100 mg Oral BID PRN Christine M Milena, DO 100 mg at 08/19/192036 vitamin 27-1 MG tablet 1 tablet 1 tablet Oral Daily Christine M Milena, DO 1 tablet at 08/19/200736 ondansetron (ZOFRAN) injection 4 mg 4 mg Intravenous Q6H PRN Christine M Milena, DO NIFEdipine (PROCARDIA XL) extended release tablet 30 mg 30 mg Oral Daily Christine M Milena, DO 30 mg at08/19/19 0834 Assessment/Plan Nav Ross 29 y.o. 31w5d admitted for PreEwSF 1. PreEwSF - Diagnosed based on severe range BPs at [facility] ED requiring treatment w/ IV labetalol x2 08/17 - Persistent mild range BPs - Asymptomatic - Pre-e labs negative yesterday, will repeat weekly - UPC 0.5 at outside hospital 08/17 - EFW 1777g (44%ile) on growth US yesterday - s/p 24 hrs mag sulfate for seizure ppx - Continue Procardia XL 30 mg daily - s/p BMZ x2 2. IUP@31w5d - Vertex - General diet - CEFM - PNV daily Further plan pending discussion with attending. Aviva Broderick MD 08/20/2019, 6:34 AM Associated attestation - Estela Vigil MD - 08/20/2019 12:24 PM EDT MFM I performed a history and physical examination on the patient and discussed the management with theresident physician. I reviewed and agree with the findings and plan as documented in their note today. 29 at 31 5/7 GA with the following: Pre-eclampsia with severe features, Hypertensive crisis currently requiring hydralazine IV and increase in procardia XL. She is without symptoms and will see how she responds. Discussed possible delivery if inability to control or need for multiple IV agents. Questions answered and FOB at bedside as well. Ongoing inpatient management until 34 weeks GA I spent 15 minutes in the visit today on the floor reviewing the chart, discussing the case with the residency staff and nursing Estela Vigil MD * Aviva Broderick MD - 08/19/2019 6:09 AM EDT Maternal Medicine Service Resident Progress Note 08/19/2019 6:09 AM Admit Date: 08/18/2019 Hospital Day: 2 Nav Ross 29 y.o. 31w4d admitted for PreEwSF Patient has been seen and examined. Doing very well this morning. No compaints. Denies headache, vision changes, chest pain, shortness of breath, and RUQ pain. Positive movement Negative vaginal bleeding Negative LOF Negative Contractions Physical Exam Vitals: 08/19/19 0550 08/19/19 0555 08/19/19 0600 08/19/19 0605 BP: Pulse: 85 84 85 94 Resp: Temp: TempSrc: SpO2: Weight: Height: Monitoring FHT: 130, moderate variability Accels: present Decels: absent Contractions: none Labs No new laboratory results Imaging No new imaging results Physical Exam Consitutional: well developed, well nourished, no acute distress Head: normocephalic, atraumatic Cardiovascular: regular rate and rhythm, no murmurs/gallops/rubs Pulmonary: clear to auscultation bilaterally, no wheezes/rhonci/rales, normal effort Abdomen: gravid, soft, nontender, nondistended, no rebound/guarding, no fundal tenderness Neuro: alert and orientated x3, responds appropriately to questions Skin: warm and dry, no erythema or rash Extremities: no lower extremity edema, no calf tenderness of swelling Medications Current Facility-Administered Medications Medication Dose Route Frequency Provider Last Rate Last Dose sodium chloride flush 0.9 % injection 10 mL 10 mL Intravenous 2 times per day Christine Abbott DO sodium chloride flush 0.9 % injection 10 mL 10 mL Intravenous PRN Christine Abbott DO docusate sodium (COLACE) capsule 100 mg 100 mg Oral BID PRN Christine Abbott DO vitamin 27-1 MG tablet 1 tablet 1 tablet Oral Daily Christine Abbott DO magnesium sulfate (20 G/500 mL) infusion 2 g/hr Intravenous Continuous Christine Abbott DO 50 mL/hr at 08/19/19 0019 2 g/hr at 08/19/19 0019 ondansetron (ZOFRAN) injection 4 mg 4 mg Intravenous Q6H PRN Christineroel Abbott, DO NIFEdipine (PROCARDIA XL) extended release tablet 30 mg 30 mg Oral Daily Christineroel Abbott, DO 30 mg at08/18/191947 betamethasone acetate-betamethasone sodium phosphate (CELESTONE) injection 12 mg 12 mg Intramuscular Once Christineroel Abbott, DO Assessment/Plan Nav Ross 29 y.o. 31w4d admitted for PreEwSF 1. PreEwSF - Diagnosed based on severe range BPs yesterday at [facility] requiring treatment w/ IV labetalol x2 - Now w/ persistent mild range BPs - Asymptomatic - Pre-e labs negative and UPC 0.5 at outside hospital yesterday, repeat labs ordered this morning and will continue weekly - Growth US ordered for today - On mag sulfate for seizure ppx, will discontinue at 24 hrs if remains stable - Continue Procardia XL 30 mg daily, will titrate if needed - s/p BMZ x1, will give 2nd dose today - Plan for expectant management until 34 wks unless an indication for delivery arises 2. IUP@31w4d - Vertex - General diet - CEFM - PNV daily - NICU consulted Further plan pending discussion with attending. Aviva Broderick MD 08/19/2019, 6:09 AM Associated attestation - Estela Vigil MD - 08/19/2019 1:33 PM EDT [facility] I performed a history and physical examination on the patient and discussed the management with theresident physician. I reviewed and agree with the findings and plan as documented in their note today. 29 at 31 4/7 GA with the following: Pre-eclampsia with severe features, currently stable discussed the hospital course the rationale behind the use of IV magnesium, steroids for lung maturity and the continued need for inpatient management given her current diagnosis with control of BP < 160/110 and goal 150/100 or less if possible. We also talked about her ultrasound today and normal growth. FOB at the bedside. Expectant conservative management was addressed and discussed with the couple with the caveat that this requires her to take on the risk. Pre-eclampsia is often times progressive and unpredictable and the average time from diagnosis with severe features is approximately 7-10 days. We talked about her goal today with a 34 week delivery but if she develops a headache, visual changes or concerns related to thrombocytopenia, elevated liver enzymes, oliguria, pulmonary edema or concerns with and maternalwell being and uncontrolled hypertension that delivery may need to be sooner. We talked about turning the magnesium off at this time after her second steroid shot and seeing how she does. If deliveryis indicated we also talked about IOL of labor with also the understanding it may take a little longer to induce with a non-favorable cervix. The NICU will be seeing the patient to talk about prematurity and the consequences. They were also told this is no fault of their own that this occurred. Ongoing inpatient management until 34 weeks GA I spent 25 minutes in the visit today on the floor reviewing the chart, discussing the case with the residency staff and nursing Estela Vigil MD documented in this encounter Assessments Diagnosis Preeclampsia, severe, third trimester 31 weeks gestation of state, incidental Additional Source Comments INFORMATION SOURCE (unrecogn ized section and content) DATE CREATED AUTHOR 10/08/2017 [facility] DATE CREATED AUTHOR AUTHOR'S ORGANIZ ATION 01/27/2020 [facility] DATE CREATED AUTHOR AUTHOR'S ORGANIZ ATION 07/29/2021 [facility] DATE CREATED AUTHOR AUTHOR'S ORGANIZ ATION 08/23/2021 [facility] DATE CREATED AUTHOR AUTHOR'S ORGANIZ ATION 01/30/2024 [facility] Reason for Visit (unrecogniz ed section and content) Reason Comments Hypertension Reason Comments IUD Source Comments (unrecognize d section and content) In the event this informatio n is protected by the Federal Confidentiality of Alcohol and Drug Abuse Patient Records regulations: The Federal rules restrict any use of the information to criminally investigate or prosecute any alcohol or drug abuse patient.[facility] Patient Care team informatio n (unrecognized section and content) Care Team Personnel Name: PHYSICIAN, NONE Position: Physician Member Role: Primary Care Physician Care Team Related Persons Name: MOHIT ROSS FOR RECORDS PERTAINING TO PATIENTS WHO ARE OR HAVE BEEN ENROLLED IN A CHEMICAL DEPENDENCY/SUBSTANCEABUSE PROGRAM, SOME INFORMATION MAY BE OMITTED. This clinical summary was aggregated from multiple sources. Caution should be exercised in using it in the provision of clinical care. This summary normalizes information from multiple sources, and as a consequence, information in this document may materially change the coding, format and clinical context of patient data. In addition, data may be omitted in some cases. CLINICAL DECISIONS SHOULD BE BASED ON THE PRIMARY CLINICAL RECORDS. [facility] [employer] provides no warranty or guarantee of the accuracy or completeness of information in this document.
[2024-09-25] MEDS: Morphine 4 MG/ML Syringe IV (19:41)
[2024-09-25] MEDS: Ondansetron 4 MG/2 ML Vial IV (19:41)
[2024-09-25] MEDS: Ketorolac 30 MG/ML Syringe IV (19:42)
[2024-09-25 19:45] LABS: Mucous, Urine 0 SEEN /hpf (<or=2+); Red Blood Cells-Urine 0 SEEN /hpf (0-5)
[2024-09-25 19:47] LABS: Absolute Lymphocyte Count 2.55 X10^3/uL (0.83-4.51); Absolute Neutrophil Count 14.1 X10^3/uL (2.0-7.7); Basophil# 0.04 X10^3/uL; Basophil% 0.2 % (0-1); Eosinophil# 0.01 X10^3/uL; Eosinophils% 0.1 % (0-5); Hematocrit 41.6 % (37-47); Hemoglobin 14.4 g/dL (12.0-15.0); Lymphocyte # 2.55 X10^3/ul (0.83-4.51); Lymphocyte % 14.3 % (19-41); Mean Corp Hgb Conc 34.6 g/dL (32-36); Mean Corpuscular Hgb 30.1 pg (27.0-32.0); Mean Corpuscular Volume 86.8 fL (81-99); Mean Platelet Vol. 10.9 fl (6.2-12.0); Monocyte# 1.07 X10^3/uL; NRBC Flagged by Analyzer 0 % (0-5); Platelet Count 325 K/mm3 (150-450); RBC Distribution Width CV 12.3 % (11.6-14.6); RBC Distribution Width SD 39.4 fl (35.1-43.9); Red Blood Count 4.79 M/mm3 (4.2-5.4); White Blood Count 17.8 K/mm3 (4.4-11.0)
[2024-09-25 19:52] LABS: Color, Urine Yellow (Yellow); Glucose, Dipstick Normal (Normal); Leukocyte Esterase-Dipstick 25 /ul (Negative); Nitrite-Dipstick Negative (Negative); Occult Blood-Urine Negative /ul (Negative); Protein-Dipstick 30 mg/dl (Negative); Specific Gravity, Urine 1.015 (1.002-1.030); Urine Bilirubin Dipstick Negative (Negative); Urine Clarity Turbid (Clear); Urine Urobilinogen Normal (Normal)
[2024-09-25 19:57] LABS: Ketone-Dipstick 150 mg/dl (Negative)
[2024-09-25 19:58] LABS: Internal QC Validated? YES +Cl - CLEAR BKGD; Pregnancy, Serum, hCG Quali. NEGATIVE Negative; Record Kit Lot#, Serum Preg. 947241
[2024-09-25 20:04] LABS: Anion Gap 15 (5-15); BUN 10 mg/dL (4-19); BUN/Creat Ratio 8.3 RATIO (10-20); Calcium,Total 11.6 mg/dL (7.6-11.0); Carbon Dioxide 20.6 mmol/L (21.0-32.0); Chloride 105 mmol/L (98-108); Creatinine, Serum 1.24 mg/dL (0.70-1.20); EST Glomerular Filtration Rate 59 (>60); Estimated Creatinine Clearance 64.15 ml/min (50-250); Glucose 112 mg/dL (70-99); Potassium 3.7 mmol/L (3.3-5.1); Sodium Level 141 mmol/L (133-145)
[2024-09-25 20:06] LABS: Squamous Epithelial Cells - UA 0-5 SEEN /hpf (5-10); White Blood Cells 5-10 SEEN /hpf (0-5)
[2024-09-25 20:08] LABS: Bacteria 1+ /hpf (None Seen)
[2024-09-25 20:09] LABS: Amorphous Sediment 3+
[2024-09-25 21:09] VITALS: BP 131/73; PULSE 52; RESP 18; O2SAT 99
[2024-09-25] MEDS: Ceftriaxone 1 GM/50 ML BAG IV (21:12)
[2024-09-25] MEDS: oxyCODONE 5 MG Tablet PO (21:14)
[2024-09-25 21:48] VITALS: BP 123/60; PULSE 50; RESP 18; TEMP 36.8; O2SAT 98
== END 2024-09-25 22:05 | disposition home or self-care (01) ==
PROVIDERS: Emergency Provider Emergency Medicine; PCP Nurse Practitioner Primary Care; Referring Provider Emergency Medicine; Visit Provider Emergency Medicine
DX: N13.2 Hydronephrosis with renal and ureteral calculous obstruction (principal); N23 Unspecified renal colic; D72.829 Elevated white blood cell count, unspecified
CPT/HCPCS: 74176; 80048; 81001; 84703; 85025; 87086; 96365; 96375; 99284; A4216; J2405